=== PATIENT | female | born 1945 | race Caucasian/White ===

== ENCOUNTER 2019-10-24 10:00 | Outpatient (RCR) | payer OTHER, SELFPAY | END 2019-10-31 23:59 | disposition home or self-care (01) | LOC: BHCOACUTE 10:00 | PROVIDERS: Family Provider Nurse Practitioner Family; PCP Family Medicine; Visit Provider Nurse Practitioner Psychiatric/Mental Health | DX: Z76.89 Persons encountering health services in other specified circumstances (principal) | CPT/HCPCS: T1013 ==

== ENCOUNTER 2019-10-30 13:33 | Outpatient (CLI) | payer MEDICARE, MEDICAID, SELFPAY ==
--- NOTE | 2019-10-30 13:42 | MM_ITS ---
WS: [id number] RIGHT DIGITAL MAMMOGRAPHY WITH CAD CLINICAL INFORMATION: HX BREAST CA - LT MAST. COMPARISON: March 07, 2017 TECHNIQUE: 3 views of the right breast were obtained. FINDINGS: The right breast is composed of heterogeneous fibroglandular density tissue, which can limit the dete ction of small underlying mass lesions. Vascular calcification. Stable lucent centered and dystrophic calcific medications. MM/[place] [id number] IMPRESSION: BI-RADS: 2-Benign FOLLOW UP: 1 Year Follow-up Recommend return to annual diagnostic mammography.
== END 2019-10-30 13:34 | disposition home or self-care (01) ==
PROVIDERS: Family Provider Nurse Practitioner Family; PCP Family Medicine; Visit Provider Family Medicine
DX: Z85.3 Personal history of malignant neoplasm of breast (principal)
CPT/HCPCS: 77065

== ENCOUNTER → 2020-01-23 08:13 | Outpatient (BNVA) | payer MEDICARE, MEDICAID, SELFPAY | PROVIDERS: Family Provider Nurse Practitioner Family; PCP Family Medicine; Visit Provider Nurse Practitioner Psychiatric/Mental Health | DX: F20.0 Paranoid schizophrenia (principal) | CPT/HCPCS: 99214 ==

== ENCOUNTER → 2020-02-17 07:42 | Outpatient (BNVA) | payer MEDICARE, MEDICAID, SELFPAY | PROVIDERS: Family Provider Nurse Practitioner Family; PCP Family Medicine; Visit Provider Nurse Practitioner Psychiatric/Mental Health | DX: F20.0 Paranoid schizophrenia (principal) | CPT/HCPCS: 99214 ==

== ENCOUNTER 2020-03-20 16:43 | Emergency (ER) | payer MEDICARE, MEDICAID, SELFPAY ==
[2020-03-20 16:45] VITALS: BP 173/61; PULSE 48; RESP 17; TEMP 36.4; O2SAT 92; BMI 20.3
--- NOTE | 2020-03-20 17:02 | CTR_ITS ---
PROCEDURE INFORMATION: Exam: CT Chest Without Contrast Exam date and time: 03/20/2020 5:27 PM Age: 74 years old Clinical indication: Injury or trauma; Fall; Initial encounter; Generalized; Blunt trauma (contusions or hematomas); Additional info: Fall, altered mental status TECHNIQUE: Imaging protocol: Computed tomography of the chest without contrast. Radiation optimization: All CT scans at this facility use at least one of these dose optimization techniques: automated exposure control; mA and/or kV adjustment per patient size (includes targeted exams where dose is matched to clinical indication); or iterative reconstruction. COMPARISON: No relevant prior studies available. RADIATION DOSE METRICS: Total DLP (mGy-cm): 1280.03 enlargement of the central pulmonary arteries. FINDINGS: Lungs: Centrilobular emphysema and scattered interstitial scarring. 3 mm nodule in the anterior right upper lobe, image 28. Mild dependent atelectasis. Pleural space: Unremarkable. No pneumothorax. No pleural effusion. Heart: Coronary artery calcifications. Mild cardiomegaly. Aorta: Unremarkable. No aortic aneurysm. Lymph nodes: Unremarkable. No enlarged lymph nodes. Bones/joints: Minimally displaced anterior right 3rd through 6th rib fractures. Soft tissues: Left mastectomy changes. IMPRESSION: 1. Minimally displaced acute appearing right 3rd through 6th rib fractures. 2. 3 mm right lung nodule. For patients at low risk (minimal or absent history of smoking and of other known risk factors), no routine follow-up is indicated. For patients at high risk (history of smoking or of other known risk factors), consider optional CT at 12 months. (Paul et al., Fleischner Society, 2017) PROCEDURE INFORMATION: Exam: CT Abdomen And Pelvis Without Contrast Exam date and time: 03/20/2020 5:27 PM Age: 74 years old Clinical indication: Injury or trauma; Fall; Initial encounter; Generalized; Blunt trauma (contusions or hematomas); Additional info: Fall, altered mental status TECHNIQUE: Imaging protocol: Computed tomography of the abdomen and pelvis without contrast. Radiation optimization: All CT scans at this facility use at least one of these dose optimization techniques: automated exposure control; mA and/or kV adjustment per patient size (includes targeted exams where dose is matched to clinical indication); or iterative reconstruction. COMPARISON: No relevant prior studies available. RADIATION DOSE METRICS: Total DLP (mGy-cm): 1280.03 FINDINGS: Liver: Normal. No mass. Gallbladder and bile ducts: Normal. No calcified stones. No ductal dilation. Pancreas: Normal. No ductal dilation. Spleen: Normal. No splenomegaly. Adrenals: Normal. No mass. Kidneys and ureters: Mild perinephric stranding is most likely chronic and physiologic. The kidneys are otherwise unremarkable. Stomach and bowel: Unremarkable. No obstruction. No mucosal thickening. Appendix: No evidence of appendicitis. Intraperitoneal space: Unremarkable. No free air. No significant fluid collection. Vasculature: Unremarkable. No abdominal aortic aneurysm. Lymph nodes: Unremarkable. No enlarged lymph nodes. Bladder: Unremarkable as visualized. Reproductive: Unremarkable as visualized. 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 Old nonunited fracture through the right pubic symphysis and inferior ramus. No acute fracture identified. Soft tissues: Mild diffuse body wall edema. Old anterior laparotomy incision. CT/CT chest abd pel wo con IMPRESSION: 1. No acute abnormality identified in the abdomen or pelvis. 2. 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 Radiation Dose CTDIVOL = (mGy): DLP = 1280.03~1280.03 (mGy-cm)
--- NOTE | 2020-03-20 17:02 | CTR_ITS ---
PROCEDURE INFORMATION: Exam: CT Head Without Contrast Exam date and time: 03/20/2020 5:27 PM Age: 74 years old Clinical indication: Injury or trauma; Fall; Initial encounter; Blunt trauma (contusions or hematomas); Consciousness not specified; Additional info: Fall, altered mental status TECHNIQUE: Imaging protocol: Computed tomography of the head without contrast. Radiation optimization: All CT scans at this facility use at least one of these dose optimization techniques: automated exposure control; mA and/or kV adjustment per patient size (includes targeted exams where dose is matched to clinical indication); or iterative reconstruction. COMPARISON: No relevant prior studies available. RADIATION DOSE METRICS: Total DLP (mGy-cm): 1802.88 FINDINGS: Brain: Mild diffuse cortical volume loss. Mild scattered hypodensities in supratentorial periventricular and subcortical white matter. No intracranial hemorrhage. Ventricles: Normal. No ventriculomegaly. Bones/joints: The calvarium is intact with hyperostosis frontalis. Sinuses: Visualized sinuses are unremarkable. No fluid levels. Mastoid air cells: Visualized mastoid air cells are well aerated. Vasculature: No hyperdense artery. Soft tissues: Unremarkable. CT/CT head wo con* [id number] IMPRESSION: 1. No acute intracranial abnormality. 2. Mild microangiopathy. Radiation Dose CTDIVOL = (mGy): DLP = 1802.88 (mGy-cm)
--- NOTE | 2020-03-20 17:02 | CTR_ITS ---
PROCEDURE INFORMATION: Exam: CT Cervical Spine Without Contrast Exam date and time: 03/20/2020 5:27 PM Age: 74 years old Clinical indication: Injury or trauma; Fall; Initial encounter; Blunt trauma TECHNIQUE: Imaging protocol: Computed tomography images of the cervical spine without contrast. Radiation optimization: All CT scans at this facility use at least one of these dose optimization techniques: automated exposure control; mA and/or kV adjustment per patient size (includes targeted exams where dose is matched to clinical indication); or iterative reconstruction. COMPARISON: No relevant prior studies available. RADIATION DOSE METRICS: Total DLP (mGy-cm): 431.27 FINDINGS: Vertebrae: Leftward cervical curvature. Vertebral body stature is maintained. Mild anterior degenerative subluxation of C3 on C4. The facets are intact with hypertrophic degenerative changes, asymmetrically prominent on the right side. C2-C3: Moderate left bony foraminal stenosis at C2-C3. No central canal stenosis. C3-C4: Moderate left and severe right bony foraminal stenosis at C3-C4. Mild disc bulge. No central canal stenosis. C4-C5: Moderate right bony foraminal stenosis at C4-C5. No central canal stenosis. C5-C6: No significant disc protrusion. No severe spinal canal stenosis. No significant neural foraminal narrowing. C6-C7: Severe right bony foraminal stenosis at C6-C7. Mild disc bulge. Mild central canal stenosis. C7-T1: No significant disc protrusion. No severe spinal canal stenosis. No significant neural foraminal narrowing. Soft tissues: Unremarkable. Lungs: Emphysema. Other findings: Severe right bony foraminal stenosis at C5-C6. Disc bulge with mild central canal stenosis. CT/CT cervical spin wo con* [id number] IMPRESSION: 1. No fracture or acute finding. 2. Multilevel degenerative changes. Radiation Dose CTDIVOL = (mGy): DLP = 431.27 (mGy-cm)
--- NOTE | 2020-03-20 17:05 | ECG_ITS ---
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 Measurements Intervals [place] Rate: 47 P: 53 NM: 193 QRS: -14 QRSD: 93 T: 57 QT: 517 QTc: 459 Interpretive Statements SINUS BRADYCARDIA LEFT VENTRICULAR HYPERTROPHY AND ST-T CHANGE [VOLTAGE CRITERIA PLUS ST/T ABNORMALITY] WARNING: DATA QUALITY MAY AFFECT INTERPRETATION Compared to ECG 06/22/2018 01:10:41 Sinus rhythm no longer present ST (T wave) deviation still present Electronically Signed On 03-20-2020 22:44:27 CDT by Sherrill Delgadillo M.D. [id number]
[2020-03-20 18:14] LABS: Basophils # 0.1 10^3/uL (0.0-0.1); Basophils % 0.7 %; Eosinophils # 0.1 10^3/uL (0.0-0.8); Eosinophils % 1.1 %; Hematocrit 42.6 % (37.0-47.0); Hemoglobin 13.7 g/dL (11.5-15.3); Lymphocytes # 2.5 10^3/uL (0.8-4.8); Lymphocytes % 33.7 %; Mean Corpuscular HGB Conc 32.2 g/dL (30.0-36.0); Mean Corpuscular Hemoglobin 31.1 pg (28.0-34.0); Mean Corpuscular Volume 96.6 fL (81-99); Mean Platelet Volume 11.8 fL (7.4-10.4); Monocytes # 0.7 10^3/uL (0.2-0.9); Monocytes % 8.9 %; Neutrophils % 55.3 %; Nucleated Red Blood Cells % 0 %; Platelet Count 197 10^3/cmm (130-400); Red Blood Count 4.41 10^6/uL (4.1-5.3); Red Cell Distribution Width 14.2 % (12.1-15.1); White Blood Count 7.3 10^3/uL (4.0-10.0)
[2020-03-20 18:21] LABS: Alanine Aminotransferase 20 U/L (0-33); Albumin Level 3.6 g/dL (3.5-5.2); Alkaline Phosphatase 59 IU/L (35-105); Anion Gap 14.3 (5-19); Aspartate Amino Transferase 24 U/L (0-32); Blood Urea Nitrogen 14 mg/dL (8-23); Calcium 8.8 mg/dL (8.5-10.5); Carbon Dioxide 27 mmol/L (22-29); Chloride 94 mmol/L (98-107); Globulin 2.2 g/dL (1.3-4.6); Glucose 93 mg/dL (65-115); Osmolality Calculated 268 mOsm/kg (285-295); Potassium 4.3 mmol/L (3.5-5.1); Sodium 131 mmol/L (136-145); Total Bilirubin 0.3 mg/dL (0.15-1.2); Total Protein 5.8 g/dL (6.6-8.7); Troponin(5th) Baseline 16 ng/L (0-10)
[2020-03-20 18:52] LABS: Urine Color Yellow (Yellow); pH Urine 8 (5-7)
[2020-03-20 18:53] LABS: Add Urine Microscopic? YES; Bilirubin Urine Neg (NEGATIVE); Blood Urine Neg (Negative); Glucose Urine UA Norm (Normal); Ketones Urine Negative (Negative); Leukocyte Esterase Urine Negative (Negative); Nitrate Urine Negative (Negative); Protein Urine Neg (Negative); Sulfosalicylic Acid Urine Negative (Negative); Urine Appearance SL Hazy (CLEAR); Urobilinogen Urine Norm (Negative)
[2020-03-20 18:54] LABS: Bacteria Urine 1+; Squamous Epithelial Cell Urine 0-4 (0-5)
[2020-03-20 18:55] LABS: Add Urine Culture? No
[2020-03-20 18:58] LABS: Amphetamines Screen Urine Negative (Negative); Barbiturates Screen Urine Negative (Negative); Benzodiazepines Screen Urine Positive (Negative); Cocaine Screen Urine Negative (Negative); Opiate Screen Urine Negative (Negative); PCP Screen Urine Negative (Negative); THC Screen Urine Negative (Negative)
--- NOTE | 2020-03-20 19:05 | ECG_ITS ---
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 Measurements Intervals [place] Rate: 46 P: 58 [place]: 164 QRS: 19 QRSD: 93 T: 71 QT: 509 QTc: 446 Interpretive Statements SINUS BRADYCARDIA LEFT VENTRICULAR HYPERTROPHY AND ST-T CHANGE Compared to ECG 03/20/2020 17:18:47 No significant changes Electronically Signed On 03-20-2020 22:56:36 CDT by Sherrill Delgadillo M.D. [id number]
[2020-03-20 20:01] LABS: Troponin 5 2HR 15.44 ng/L (0-10)
[2020-03-20 20:14] LABS: Troponin 5 2HR Delta -0.56 ABS# (0-10)
[2020-03-20 21:07] VITALS: BP 169/59; PULSE 43; RESP 22; O2SAT 97
[2020-03-20 22:15] VITALS: BP 121/46; PULSE 37; RESP 15; O2SAT 94
--- NOTE | 2020-03-20 22:46 | ED_ITS ---
HPI - Fall General: Chief Complaint: Fall Stated Complaint: MULT FALLS; HEAD PAIN Time Seen by Provider: 03/20/20 16:52 Source: family and EMS Mode of arrival: EMS Limitations: no limitations History of Present Illness: HPI Narrative: The patient is a 74-year-old female resident of a local [facility]. She was brought in via EMS following repeated falls and lethargy. Her daughter says that the patient fell yesterday, fall was witnessed and there was no change in her baseline level of function. Today she fell outside which was unwitnessed and they were not sure if there was any episode of loss of consciousness. The patient was however quite lethargic after and so was sent here to be evaluated. The patient is not on anticoagulation. According to her daughter and EMS the patient was bradycardic when they arrived, with heart rate of about 40. The daughter says that the patient's heart rate is usually not that low and it usually runs about 60 or 70. The patient is on amiodarone and metoprolol but has been on these medications long-term. No change in the dosing of her meds. Review of Systems General: Reports: ROS unobtainable due to mental status PFSH ED PFSH: Medical History Paranoid schizophrenia Social History Smoking and tobacco status: current every day smoker Physical Exam Const: COMMON NORMALS: no acute distress, average body habitus, no limitations, healthy appearing, alert and well nourished HENMT: COMMON NORMALS: normocephalic, atraumatic and moist oral mucous membranes HEAD & SCALP: normocephalic and atraumatic Eye: COMMON NORMALS: Equal, round and reactive pupils present, EOMs intact bilaterally, conjunctivae normal and no scleral icterus CONJUNCTIVA: Yes conjunctivae normal PUPIL: Yes Equal, round and reactive pupils present Neck/C-Spine: COMMON NORMALS: full ROM, supple, no JVD and No carotid bruits Chest: COMMONS NORMALS: normal inspection of the chest CHEST: Yes localized rib tenderness with anteroposterior compression Resp: COMMON NORMALS: normal respiratory effort, No retractions, No use of accessory muscles, clear to auscultation bilaterally and percussion normal AUSCULTATION: clear to auscultation bilaterally PERCUSSION: percussion normal Cardio: COMMON NORMALS: no JVD, regular rate, regular rhythm, S1 normal heart sound present, S2 normal heart sound present, No gallops present (Cardio), No clicks present (Cardio), No murmurs present (Cardio), No rub (Cardio) and Peripheral pulses 2+ throughout RATE: regular rate RHYTHM: regular rhythm HEART SOUNDS: S1 normal heart sound present and S2 normal heart sound present PERIPHERAL PULSES: Peripheral pulses 2+ throughout GI: COMMON NORMALS: Normal to inspection, nondistended, normoactive bowel sounds present, Soft to palpation, non-tender, No hepatosplenomegaly present, no masses and no bruits PALPATION: Yes Soft to palpation and Yes No hepatosplenomegaly present : COMMON NORMALS: Yes no CVA tenderness BLADDER/KIDNEY EXAM: Yes no CVA tenderness Back/Pelvis: COMMON NORMALS: no CVA tenderness Extremity: COMMON NORMALS: normal to inspection, full ROM, capillary refill normal, no calf tenderness and no pedal edema Neuro: SENSORIUM/ORIENTATION: Yes alert and Yes Orientation impaired Skin: COMMON NORMALS: no rashes or lesions noted, no wounds, turgor normal, no jaundice, no petechiae and no mottling GENERAL SKIN EXAM: no rashes or lesions noted and turgor normal Course Reevaluation(s): Reevaluation #1: Discussed her lab and imaging findings with the patient's daughter. Explained that she has multiple rib fractures on the right. Also explained that because she is bradycardic I would like evaluated in the trauma center. I do not voiced understanding and is in agreement with the plan. Abductor does not have any preference for hospitalist. Time: 20:00 Consultations: Consultation #1: Dr. Angela, hospitalist at [facility] in [place]. He kindly accepted the patient to his service. Time: 20:20 Vital Signs: Vital signs: Vital Signs Temperature 97.5 F L 03/20/20 16:45 Pulse Rate 43 L 03/20/20 21:07 Respiratory Rate 22 H 03/20/20 21:07 Blood Pressure 169/59 03/20/20 21:07 Pulse Oximetry 97 03/20/20 21:07 MDM - Fall MDM Narrative: Medical decision making narrative: 74-year-old female patient presents falls in the last 2 days. She is noted to be bradycardic although she is on amiodarone and metoprolol. She sustained multiple rib fractures, third through sixth ribs on the right. No pneumo or hemothorax. Because of the rib fractures as well as a bradycardia the patient is transferred to a trauma center for further evaluation and management. She has a flat 2-hour delta on her high-sensitivity troponin. Medical Records: Attestation: I reviewed the patient's medical records. Lab Data: Attestation: I reviewed the patient's lab results. Labs: Lab Results 03/20/20 03/20/20 03/20/20 Range/Units 17:35 17:35 17:35 WBC 7.3 (4.0-10.0) 10^3/ uL RBC 4.41 (4.1-5.3) 10^6/u L Hgb 13.7 (11.5-15.3) g/dL Hct 42.6 (37.0-47.0) % MCV 96.6 (81-99) fL MCH 31.1 (28.0-34.0) pg MCHC 32.2 (30.0-36.0) g/dL RDW 14.2 (12.1-15.1) % Plt Count 197 (130-400) 10^3/c mm MPV 11.8 H (7.4-10.4) fL Neut % (Auto) 55.3 % Lymph % (Auto) 33.7 % [place] % (Auto) 8.9 % Eos % (Auto) 1.1 % Baso % (Auto) 0.7 % Neut # (Auto) 4.0 (1.8-7.7) 10^3/u L Lymph # (Auto) 2.5 (0.8-4.8) 10^3/u L [place] # (Auto) 0.7 (0.2-0.9) 10^3/u L Eos # (Auto) 0.1 (0.0-0.8) 10^3/u L Baso # (Auto) 0.1 (0.0-0.1) 10^3/u L Nucleated RBC % (a uto) 0 % Nucleated RBCs # 0.0 /100WBC Sodium 131 L (136-145) mmol/L Potassium 4.3 (3.5-5.1) mmol/L Chloride 94 L (98-107) mmol/L Carbon Dioxide 27 (22-29) mmol/L Anion Gap 14.3 (5-19) BUN 14 (8-23) mg/dL Creatinine 0.6 (0.5-0.9) mg/dL Glucose 93 (65-115) mg/dL Calculated Osmolal ity 268 L (285-295) mOsm/k g Calcium 8.8 (8.5-10.5) mg/dL Total Bilirubin 0.3 (0.15-1.2) mg/dL AST 24 (0-32) U/L ALT 20 (0-33) U/L Alkaline Phosphata se 59 (35-105) IU/L Troponin T Baselin e 16 H (0-10) ng/L Troponin T 120 Min ewiiaapaayp (0-10) ng/L Delta Troponin T (0-10) ABS# Total Protein 5.8 L (6.6-8.7) g/dL Albumin 3.6 (3.5-5.2) g/dL Globulin 2.2 (1.3-4.6) g/dL Urine Color (Yellow) Urine Appearance (CLEAR) Urine pH (5-7) Ur Specific Gravit y (1.005-1.030) Urine Protein (Negative) Urine Glucose (UA) (Normal) Urine Ketones (Negative) Urine Blood (Negative) Urine Nitrate (Negative) Urine Bilirubin (NEGATIVE) Prot Sulfosalicyli c Acd (Negative) Urine Urobilinogen (Negative) mg/dL Ur Leukocyte Olinda ase (Negative) Urine RBC (0-2) /hpf Urine WBC (0-5) /hpf Ur Squamous Epith Cells (0-5) Urine Bacteria (NONE) Urine Opiates Scre en (Negative) ng/mL Ur Barbiturates Sc reen (Negative) ng/mL Ur Phencyclidine S crn (Negative) ng/mL Ur Amphetamines Sc reen (Negative) ng/mL U Benzodiazepines Scrn (Negative) ng/mL Urine Cocaine Scre en (Negative) ng/mL U Marijuana (THC) Screen (Negative) ng/mL 03/20/20 03/20/20 03/20/20 Range/Units 18:35 18:35 19:31 WBC (4.0-10.0) 10^3/ uL RBC (4.1-5.3) 10^6/u L Hgb (11.5-15.3) g/dL Hct (37.0-47.0) % MCV (81-99) fL MCH (28.0-34.0) pg MCHC (30.0-36.0) g/dL RDW (12.1-15.1) % Plt Count (130-400) 10^3/c mm MPV (7.4-10.4) fL Neut % (Auto) % Lymph % (Auto) % [place] % (Auto) % Eos % (Auto) % Baso % (Auto) % Neut # (Auto) (1.8-7.7) 10^3/u L Lymph # (Auto) (0.8-4.8) 10^3/u L [place] # (Auto) (0.2-0.9) 10^3/u L Eos # (Auto) (0.0-0.8) 10^3/u L Baso # (Auto) (0.0-0.1) 10^3/u L Nucleated RBC % (a uto) % Nucleated RBCs # /100WBC Sodium (136-145) mmol/L Potassium (3.5-5.1) mmol/L Chloride (98-107) mmol/L Carbon Dioxide (22-29) mmol/L Anion Gap (5-19) BUN (8-23) mg/dL Creatinine (0.5-0.9) mg/dL Glucose (65-115) mg/dL Calculated Osmolal ity (285-295) mOsm/k g Calcium (8.5-10.5) mg/dL Total Bilirubin (0.15-1.2) mg/dL AST (0-32) U/L ALT (0-33) U/L Alkaline Phosphata se (35-105) IU/L Troponin T Baselin e (0-10) ng/L Troponin T 120 Min ewiiaapaayp 15.44 H (0-10) ng/L Delta Troponin T -0.56 L (0-10) ABS# Total Protein (6.6-8.7) g/dL Albumin (3.5-5.2) g/dL Globulin (1.3-4.6) g/dL Urine Color Yellow (Yellow) Urine Appearance Sl hazy (CLEAR) Urine pH 8 H (5-7) Ur Specific Gravit y 1.010 (1.005-1.030) Urine Protein Neg (Negative) Urine Glucose (UA) Norm (Normal) Urine Ketones Negative (Negative) Urine Blood Neg (Negative) Urine Nitrate Negative (Negative) Urine Bilirubin Neg (NEGATIVE) Prot Sulfosalicyli c Acd Negative (Negative) Urine Urobilinogen Norm (Negative) mg/dL Ur Leukocyte Olinda ase Negative (Negative) Urine RBC None (0-2) /hpf Urine WBC None (0-5) /hpf Ur Squamous Epith Cells 0-4 H (0-5) Urine Bacteria 1+ H (NONE) Urine Opiates Scre en Negative (Negative) ng/mL Ur Barbiturates Sc reen Negative (Negative) ng/mL Ur Phencyclidine S crn Negative (Negative) ng/mL Ur Amphetamines Sc reen Negative (Negative) ng/mL U Benzodiazepines Scrn Positive H (Negative) ng/mL Urine Cocaine Scre en Negative (Negative) ng/mL U Marijuana (THC) Screen Negative (Negative) ng/mL Imaging Data^: Other CT: Radiologist's impression: [place] [address] CT Scan Report Signed Patient: Luna Vu #: [id number] : 5Acct#:[id number] Age/Sex: 74 / FADM Date: 03/20/20 Loc: ERRoom/Bed: Attending Dr: Ordering Provider/Ordering MD: Catia Magallon MD, [facility] Date of Service: 03/20/20 Procedure(s): CT cervical spin wo con* [id number] Accession Number(s): [id number] Report Number: [id number] PROCEDURE INFORMATION: Exam: CT Cervical Spine Without Contrast Exam date and time: 03/20/2020 5:27 PM Age: 74 years old Clinical indication: Injury or trauma; Fall; Initial encounter; Blunt trauma TECHNIQUE: Imaging protocol: Computed tomography images of the cervical spine without contrast. Radiation optimization: All CT scans at this facility use at least one of these dose optimization techniques: automated exposure control; mA and/or kV adjustment per patient size (includes targeted exams where dose is matched to clinical indication); or iterative reconstruction. COMPARISON: No relevant prior studies available. RADIATION DOSE METRICS: Total DLP (mGy-cm): 431.27 FINDINGS: Vertebrae: Leftward cervical curvature. Vertebral body stature is maintained. Mild anterior degenerative subluxation of C3 on C4. The facets are intact with hypertrophic degenerative changes, asymmetrically prominent on the right side. C2-C3: Moderate left bony foraminal stenosis at C2-C3. No central canal stenosis. C3-C4: Moderate left and severe right bony foraminal stenosis at C3-C4. Mild disc bulge. No central canal stenosis. C4-C5: Moderate right bony foraminal stenosis at C4-C5. No central canal stenosis. C5-C6: No significant disc protrusion. No severe spinal canal stenosis. No significant neural foraminal narrowing. C6-C7: Severe right bony foraminal stenosis at C6-C7. Mild disc bulge. Mild central canal stenosis. C7-T1: No significant disc protrusion. No severe spinal canal stenosis. No significant neural foraminal narrowing. Soft tissues: Unremarkable. Lungs: Emphysema. Other findings: Severe right bony foraminal stenosis at C5-C6. Disc bulge with mild central canal stenosis. CT/CT cervical spin wo con* [id number] IMPRESSION: 1. No fracture or acute finding. 2. Multilevel degenerative changes. Radiation Dose CTDIVOL = (mGy): DLP = 431.27 (mGy-cm) Dictated By:Americo Barbosa Signed By:Heavenly Barbosa Date/Time:03/20/201801 DD/ 00 CT Chest: Radiologist's impression: [address] [address] [address] Scan Report Signed Patient: Luna Vu #: [id number] : 5Acct#:[id number] Age/Sex: 74 / FADM Date: 03/20/20 Loc: ERRoom/Bed: Attending Dr: Ordering Provider/Ordering MD: Catia Magallon MD, [facility] Date of Service: 03/20/20 Procedure(s): CT chest abd pel wo con Accession Number(s): [id number] Report Number: [id number] PROCEDURE INFORMATION: Exam: CT Chest Without Contrast Exam date and time: 03/20/2020 5:27 PM Age: 74 years old Clinical indication: Injury or trauma; Fall; Initial encounter; Generalized; Blunt trauma (contusions or hematomas); Additional info: Fall, altered mental status TECHNIQUE: Imaging protocol: Computed tomography of the chest without contrast. Radiation optimization: All CT scans at this facility use at least one of these dose optimization techniques: automated exposure control; mA and/or kV adjustment per patient size (includes targeted exams where dose is matched to clinical indication); or iterative reconstruction. COMPARISON: No relevant prior studies available. RADIATION DOSE METRICS: Total DLP (mGy-cm): 1280.03 enlargement of the central pulmonary arteries. FINDINGS: Lungs: Centrilobular emphysema and scattered interstitial scarring. 3 mm nodule in the anterior right upper lobe, image 28. Mild dependent atelectasis. Pleural space: Unremarkable. No pneumothorax. No pleural effusion. Heart: Coronary artery calcifications. Mild cardiomegaly. Aorta: Unremarkable. No aortic aneurysm. Lymph nodes: Unremarkable. No enlarged lymph nodes. Bones/joints: Minimally displaced anterior right 3rd through 6th rib fractures. Soft tissues: Left mastectomy changes. IMPRESSION: 1. Minimally displaced acute appearing right 3rd through 6th rib fractures. 2. 3 mm right lung nodule. For patients at low risk (minimal or absent history of smoking and of other known risk factors), no routine follow-up is indicated. For patients at high risk (history of smoking or of other known risk factors), consider optional CT at 12 months. (Paul et al., Fleischner Society, 2017) PROCEDURE INFORMATION: Exam: CT Abdomen And Pelvis Without Contrast Exam date and time: 03/20/2020 5:27 PM Age: 74 years old Clinical indication: Injury or trauma; Fall; Initial encounter; Generalized; Blunt trauma (contusions or hematomas); Additional info: Fall, altered mental status TECHNIQUE: Imaging protocol: Computed tomography of the abdomen and pelvis without contrast. Radiation optimization: All CT scans at this facility use at least one of these dose optimization techniques: automated exposure control; mA and/or kV adjustment per patient size (includes targeted exams where dose is matched to clinical indication); or iterative reconstruction. COMPARISON: No relevant prior studies available. RADIATION DOSE METRICS: Total DLP (mGy-cm): 1280.03 FINDINGS: Liver: Normal. No mass. Gallbladder and bile ducts: Normal. No calcified stones. No ductal dilation. Pancreas: Normal. No ductal dilation. Spleen: Normal. No splenomegaly. Adrenals: Normal. No mass. Kidneys and ureters: Mild perinephric stranding is most likely chronic and physiologic. The kidneys are otherwise unremarkable. Stomach and bowel: Unremarkable. No obstruction. No mucosal thickening. Appendix: No evidence of appendicitis. Intraperitoneal space: Unremarkable. No free air. No significant fluid collection. Vasculature: Unremarkable. No abdominal aortic aneurysm. Lymph nodes: Unremarkable. No enlarged lymph nodes. Bladder: Unremarkable as visualized. Reproductive: Unremarkable as visualized. 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 Old nonunited fracture through the right pubic symphysis and inferior ramus. No acute fracture identified. Soft tissues: Mild diffuse body wall edema. Old anterior laparotomy incision. CT/CT chest abd pel wo con IMPRESSION: 1. No acute abnormality identified in the abdomen or pelvis. 2. 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 Radiation Dose CTDIVOL = (mGy): DLP = 1280.03~1280.03 (mGy-cm) Dictated By:Americo Barbosa Signed By:Heavenly Barbosa Date/Time:03/20/201819 DD/ 18 CT Head: Radiologist's impression: [place] [address] CT Scan Report Signed Patient: Luna Vu #: [id number] : 5Acct#:[id number] Age/Sex: 74 / FADM Date: 03/20/20 Loc: ERRoom/Bed: Attending Dr: Ordering Provider/Ordering MD: Catia Magallon MD, [facility] Date of Service: 03/20/20 Procedure(s): CT head wo con* [id number] Accession Number(s): [id number] Report Number: [id number] PROCEDURE INFORMATION: Exam: CT Head Without Contrast Exam date and time: 03/20/2020 5:27 PM Age: 74 years old Clinical indication: Injury or trauma; Fall; Initial encounter; Blunt trauma (contusions or hematomas); Consciousness not specified; Additional info: Fall, altered mental status TECHNIQUE: Imaging protocol: Computed tomography of the head without contrast. Radiation optimization: All CT scans at this facility use at least one of these dose optimization techniques: automated exposure control; mA and/or kV adjustment per patient size (includes targeted exams where dose is matched to clinical indication); or iterative reconstruction. COMPARISON: No relevant prior studies available. RADIATION DOSE METRICS: Total DLP (mGy-cm): 1802.88 FINDINGS: Brain: Mild diffuse cortical volume loss. Mild scattered hypodensities in supratentorial periventricular and subcortical white matter. No intracranial hemorrhage. Ventricles: Normal. No ventriculomegaly. Bones/joints: The calvarium is intact with hyperostosis frontalis. Sinuses: Visualized sinuses are unremarkable. No fluid levels. Mastoid air cells: Visualized mastoid air cells are well aerated. Vasculature: No hyperdense artery. Soft tissues: Unremarkable. CT/CT head wo con* [id number] IMPRESSION: 1. No acute intracranial abnormality. 2. Mild microangiopathy. Radiation Dose CTDIVOL = (mGy): DLP = 1802.88 (mGy-cm) Dictated By:Americo Barbosa Signed By:Americo BarbosaSienrique Date/Time:03/20/201803 DD/ 02 EKG Data^: EKG 1: Attestation: I personally reviewed and interpreted this EKG as follows: EKG interpretation date: 03/20/20 EKG interpretation time: 17:05 Prior EKG tracings: not available for review Interpretation: Sinus bradycardia. Heart rate 47 bpm. LVH. EKG 2: Attestation: I personally reviewed and interpreted this EKG as follows: EKG interpretation date: 03/20/20 EKG interpretation time: 19:05 Prior EKG tracings: available for review Interpretation: Sinus bradycardia Heart rate 46 bpm. LVH. Unchanged from earlier today. Discharge Plan Discharge Patient Disposition: Xfer Short-Term Hosp Clinical Impression: Bradycardia, Multiple fractures of rib involving four or more ribs, Acute alteration in mental status, Repeated falls Condition: Stable Prescriptions: No Action amiodarone 200 mg tablet 200 mg PO QDAY RF: 0 aspirin [Adult Low Dose Aspirin] 81 mg tablet,delayed release (DR/EC) 81 mg PO QDAY RF: 0 ferrous sulfate 325 mg (65 mg iron) tablet 325 mg PO QDAY RF: 0 furosemide [Lasix] 40 mg tablet 40 mg PO QAM PRN (Reason: Edema) RF: 0 ibuprofen 600 mg tablet 600 mg PO TID PRN (Reason: Pain) RF: 0 levothyroxine 50 mcg capsule 50 mcg PO QDAY RF: 0 metoprolol tartrate 25 mg tablet 12.5 mg PO BID RF: 0 montelukast 10 mg tablet 10 mg PO .QHS RF: 0 multivitamin Tablet 1 tab PO QAM RF: 0 pantoprazole 40 mg tablet,delayed release (DR/EC) 40 mg PO QDAY RF: 0 docusate sodium [Colace] 100 mg capsule 100 mg PO QDAY RF: 0 nitroglycerin 0.4 mg tablet, sublingual 0.4 mg SUBLINGUAL Q5M PRN (Reason: Chest Pain) RF: 0 divalproex [Depakote ER] 250 mg tablet extended release 24 hr 250 mg PO BID Qty: 60 RF: 4 fluoxetine [Prozac] 20 mg capsule 20 mg PO QAM Qty: 30 RF: 4 haloperidol 2 mg tablet 2 mg PO BID PRN (Reason: agitation) Qty: 60 RF: 3 lorazepam [Ativan] 1 mg tablet 1 mg PO BID PRN (Reason: anxiety) Qty: 60 RF: 3 ziprasidone HCl [Geodon] 60 mg capsule 60 mg PO .am and 6 pm Qty: 60 RF: 3 perphenazine 8 mg tablet 8 mg PO QAM Qty: 30 RF: 4 tolterodine 4 mg Capsule,Extended Release 24hr 4 mg PO DAILY RF: 0 simvastatin 20 mg tablet 20 mg PO DAILY RF: 0 Oyster Shell + D3 250-125 mg-unit Tablet 1 tab PO BID RF: 0 Breo Ellipta 200-25 mcg/dose Blister With Device 1 inh INHALATION DAILY RF: 0 Discharge Orders: Transfer Out of Facility (Order); Ordered 03/20/20 Ordered By: Catia Magallon Coding Level of Care Code ED Population Geneticist for Basilio Toth
[2020-03-20 23:05] VITALS: BP 123/45; PULSE 36; RESP 15; O2SAT 94
[2020-03-20 23:21] VITALS: BP 123/45; PULSE 37; RESP 18; O2SAT 95
== END 2020-03-21 00:15 | disposition short-term general hospital (02) ==
PROVIDERS: Emergency Provider Family Medicine
DX: R00.1 Bradycardia, unspecified (principal); S22.41XA Multiple fractures of ribs, right side, initial encounter for closed fracture; R41.82 Altered mental status, unspecified; R29.6 Repeated falls; F17.210 Nicotine dependence, cigarettes, uncomplicated; W19.XXXA Unspecified fall, initial encounter; Y92.129 Unspecified place in nursing home as the place of occurrence of the external cause
CPT/HCPCS: 12345; 70450; 71250; 72125; 74176; 80053; 80306; 81001; 84484; 85025; 93005; 99283; 99285

== ENCOUNTER → 2020-05-11 08:04 | Outpatient (BNVA) | payer MEDICARE, MEDICAID, SELFPAY | PROVIDERS: Visit Provider Nurse Practitioner Psychiatric/Mental Health | DX: F20.0 Paranoid schizophrenia (principal) | CPT/HCPCS: 99213 ==

== ENCOUNTER → 2020-07-23 10:58 | Outpatient (BNVA) | payer MEDICARE, MEDICAID, SELFPAY | PROVIDERS: Visit Provider Nurse Practitioner Psychiatric/Mental Health | DX: F20.0 Paranoid schizophrenia (principal) | CPT/HCPCS: 99213 ==

== ENCOUNTER → 2020-10-22 10:29 | Outpatient (BNVA) | payer MEDICARE, MEDICAID, SELFPAY | PROVIDERS: PCP Nurse Practitioner Family; Visit Provider Nurse Practitioner Psychiatric/Mental Health | DX: F20.0 Paranoid schizophrenia (principal) | CPT/HCPCS: 99214 ==

== ENCOUNTER 2020-11-04 11:20 | Outpatient (CLI) | payer MEDICARE, MEDICAID, SELFPAY ==
--- NOTE | 2020-11-04 11:30 | MM_ITS ---
WS: [id number] DIAGNOSTIC RIGHT DIGITAL MAMMOGRAM WITH CAD HISTORY: Z85.3 - Personal history of malignant neoplasm of breast COMPARISON: 10/30/2019, 03/07/2017 Technique: CC, MLO and ML views. Breast composition: The breasts are heterogeneously dense, which may obscure small masses. This is a limited and technically difficult examination. The entire RIGHT breast is not included on the images. There are scattered calcifications. Breast arterial calcifications and benign calcifications. No mas s. There is mild thickening of the skin anteriorly which could be positional and due to poor compress ion. MM/[place] [id number] IMPRESSION: BI-RADS: 2-Benign FOLLOW UP: 1 Year Follow-up
[2020-11-04 12:45] LABS: Basophils # 0.1 10^3/uL (0.0-0.1); Basophils % 0.7 %; Eosinophils # 0.1 10^3/uL (0.0-0.8); Eosinophils % 0.7 %; Hematocrit 39.2 % (37.0-47.0); Hemoglobin 12.9 g/dL (11.5-15.3); Lymphocytes # 2.6 10^3/uL (0.8-4.8); Lymphocytes % 35.8 %; Mean Corpuscular HGB Conc 32.9 g/dL (30.0-36.0); Mean Corpuscular Hemoglobin 31.4 pg (28.0-34.0); Mean Corpuscular Volume 95.4 fL (81-99); Mean Platelet Volume 10.9 fL (7.4-10.4); Monocytes # 0.7 10^3/uL (0.2-0.9); Monocytes % 9.8 %; Neutrophils # 3.83 10^3/uL (1.8-7.7); Neutrophils % 52.7 %; Nucleated Red Blood Cells % 0 %; Platelet Count 290 10^3/cmm (130-400); Red Blood Count 4.11 10^6/uL (4.1-5.3); Red Cell Distribution Width 14.1 % (12.1-15.1); White Blood Count 7.3 10^3/uL (4.0-10.0)
[2020-11-04 13:16] LABS: Estmated Average Glucose 88; Hemoglobin A1C 4.7 % (4.0-6.0)
[2020-11-04 13:30] LABS: Blood Urine 2+ (Negative); Glucose Urine UA Norm (Normal); Ketones Urine Negative (Negative); Nitrate Urine Negative (Negative); Protein Urine Neg (Negative); Urine Appearance SL Hazy (CLEAR); Urine Color Yellow (Yellow); pH Urine 6.5 (5-7)
[2020-11-04 13:31] LABS: Bacteria Urine 4+ /hpf; Bilirubin Urine Neg (Negative); Leukocyte Esterase Urine 1+ (Negative); Urobilinogen Urine 4 mg/dL (Negative); WBC Urine >100 /hpf (0-5)
[2020-11-04 13:34] LABS: Folate Level 8.7 ng/mL (4.8-37.3)
[2020-11-04 13:35] LABS: 25 Hydroxy Vitamin D 47 ng/mL (30-100); Alanine Aminotransferase 19 U/L (0-33); Albumin Level 4.3 g/dL (3.5-5.2); Alkaline Phosphatase 77 IU/L (35-105); Anion Gap 11.9 (5-19); Aspartate Amino Transferase 27 U/L (0-32); Blood Urea Nitrogen 13 mg/dL (8-23); Calcium 9.4 mg/dL (8.5-10.5); Carbon Dioxide 26 mmol/L (22-29); Chloride 94 mmol/L (98-107); Chol HDL Ratio 1.95 mg/dL (0.0-4.40); Cholesterol 177 mg/dL (0-200); Globulin 2.5 g/dL (1.3-4.6); Glucose 91 mg/dL (65-115); HDL Cholesterol 91 mg/dL (60-100); Iron 76 ug/dL (37-145); LDL Cholesterol Calculated 76 mg/dL (50-129); LDL HDL Ratio 0.84 RATIO (0.00-3.22); Osmolality Calculated 266 mOsm/kg (285-295); Percent Saturation 32.2 % (20-50); Potassium 3.9 mmol/L (3.5-5.1); Sodium 128 mmol/L (136-145); Thyroid Stimulating Hormone 0.74 uIU/mL (0.27-4.20); Total Bilirubin 0.4 mg/dL (0.15-1.2); Total Iron Binding Capacity 236 mcg/dl; Total Protein 6.8 g/dL (6.6-8.7); Triglycerides 48 mg/dL (0-150); Unsaturated Iron Binding 160 ug/dL (112-347)
[2020-11-04 14:47] LABS: T3 Free 1.1 PG/ML (2.0-4.4)
[2020-11-08 17:17] LABS: Methylmalonic Acid 446 nmol/L (87-318)
== END 2020-11-04 11:21 | disposition home or self-care (01) ==
LOC: RADSHAW 11:24
PROVIDERS: PCP Nurse Practitioner Family; Visit Provider Nurse Practitioner Family
DX: E78.2 Mixed hyperlipidemia (principal); Z85.3 Personal history of malignant neoplasm of breast; I10 Essential (primary) hypertension; E03.9 Hypothyroidism, unspecified; Z79.899 Other long term (current) drug therapy; E55.9 Vitamin D deficiency, unspecified; D64.9 Anemia, unspecified; E53.8 Deficiency of other specified B group vitamins
CPT/HCPCS: 36415; 77065; 80053; 80061; 81001; 82306; 82746; 83036; 83540; 83550; 83921; 84439; 84443; 84481; 85025

== ENCOUNTER → 2020-12-21 11:49 | Outpatient (BNVA) | payer MEDICARE, MEDICAID, SELFPAY | PROVIDERS: PCP Nurse Practitioner Family; Visit Provider Nurse Practitioner Family | DX: N39.0 Urinary tract infection, site not specified (principal) | CPT/HCPCS: 81003; 87077; 87086; 87184 ==

== ENCOUNTER → 2021-01-28 08:51 | Outpatient (BNVA) | payer MEDICARE, MEDICAID, SELFPAY | PROVIDERS: PCP Nurse Practitioner Family; Visit Provider Nurse Practitioner Psychiatric/Mental Health | DX: F20.0 Paranoid schizophrenia (principal) | CPT/HCPCS: 99214 ==

== ENCOUNTER → 2021-02-21 11:56 | Outpatient (BNVA) | payer MEDICARE, MEDICAID, SELFPAY | PROVIDERS: PCP Nurse Practitioner Family; Visit Provider Nurse Practitioner Family | DX: E03.9 Hypothyroidism, unspecified (principal) | CPT/HCPCS: 84439; 84443; 84481 ==

== ENCOUNTER → 2021-02-23 12:12 | Outpatient (BNVA) | payer MEDICARE, MEDICAID, SELFPAY | PROVIDERS: PCP Nurse Practitioner Family; Visit Provider Nurse Practitioner Family | DX: E03.9 Hypothyroidism, unspecified (principal); Z79.899 Other long term (current) drug therapy | CPT/HCPCS: 81003 ==

== ENCOUNTER 2021-04-09 14:23 | Inpatient (IN) | payer MEDICARE, MEDICAID, SELFPAY ==
[2021-04-09] VITALS (7 sets, daily range): BP systolic 75–135; BP diastolic 52–70; PULSE 70–75; RESP 16–22; TEMP 37–37.2; O2SAT 94–98
--- NOTE | 2021-04-09 14:46 | CTR_ITS ---
PROCEDURE INFORMATION: Exam: CT Cervical Spine Without Contrast Exam date and time: 04/09/2021 2:46 PM Age: 75 years old Clinical indication: Injury or trauma; Blunt trauma; Patient HX: Forward fall while walking TECHNIQUE: Imaging protocol: Computed tomography images of the cervical spine without contrast. Radiation optimization: All CT scans at this facility use at least one of these dose optimization techniques: automated exposure control; mA and/or kV adjustment per patient size (includes targeted exams where dose is matched to clinical indication); or iterative reconstruction. COMPARISON: CT cervical spin wo con* [id number] 03/20/2020 5:42 PM RADIATION DOSE METRICS: Total DLP (mGy-cm): 330.67 FINDINGS: Bones/joints: No acute fracture. Normal alignment. Discs/Spinal canal/Neural foramina: Moderate to severe facet arthropathy along the midcervical spine asymmetrically pronounced on the right. Corresponding moderate uncovertebral hypertrophy of the mid/lower cervical spine. Lungs: Mild emphysematous changes at the lung apices. Soft tissues: Unremarkable. CT/CT cervical spin wo con* [id number] IMPRESSION: No acute osseous abnormalities of the cervical spine. Radiation Dose CTDIVOL = (mGy): DLP = 330.67 (mGy-cm)
--- NOTE | 2021-04-09 14:46 | CTR_ITS ---
PROCEDURE INFORMATION: Exam: CT Maxillofacial Without Contrast Exam date and time: 04/09/2021 2:46 PM Age: 75 years old Clinical indication: Injury or trauma; Blunt trauma (contusions or hematomas); Cheek bone and forehead and orbit/periorbital; Left; Patient HX: Forward fall while walking L facial bruising; Additional info: Fall; L orbital/forehead TECHNIQUE: Imaging protocol: Computed tomography images of the face without contrast. Total images: 280 Radiation optimization: All CT scans at this facility use at least one of these dose optimization techniques: automated exposure control; mA and/or kV adjustment per patient size (includes targeted exams where dose is matched to clinical indication); or iterative reconstruction. COMPARISON: CT head wo con* [id number] 04/09/2021 4:00 PM RADIATION DOSE METRICS: Total DLP (mGy-cm): 755.32 FINDINGS: Orbital cavity: Orbits are normal. Globes are unremarkable. Bones/joints: No visible facial bone fracture. Paranasal sinuses: Normal. No air-fluid levels. Soft tissues: Mild left periorbital soft tissue swelling/contusion without visible seroma or hematoma. CT/CT facial bones wo con* [id number] IMPRESSION: 1. No visible facial bone fracture. 2. Mild left periorbital soft tissue swelling/contusion without visible seroma or hematoma. Radiation Dose CTDIVOL = (mGy): DLP = 755.32 (mGy-cm)
--- NOTE | 2021-04-09 14:46 | XRR_ITS ---
PROCEDURE INFORMATION: Exam: XR Left Femur Exam date and time: 04/09/2021 2:46 PM Age: 75 years old Clinical indication: Injury or trauma; Fall; Blunt trauma; Thigh or upper leg; Left TECHNIQUE: Imaging protocol: XR Left femur. Views: 2 views. COMPARISON: CT chest abd pel wo con 03/20/2020 5:47 PM FINDINGS: Bones/joints: Unremarkable. No acute fracture. Soft tissues: Unremarkable. Comminuted fracture involving the distal diaphysis of the left femur with foreshortening and lateral displacement of the more proximal femoral shaft. There is mild posterior angulation of the distal fracture fragment. Fracture fragments are noted measuring up to 4 cm in size. 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 XR/XR femur LT min 2V* [id number] IMPRESSION: Comminuted , displaced fracture of the distal left femur with several fracture fragments as described in the body of the report.
--- NOTE | 2021-04-09 14:47 | CTR_ITS ---
PROCEDURE INFORMATION: Exam: CT Head Without Contrast Exam date and time: 04/09/2021 2:47 PM Age: 75 years old Clinical indication: Injury or trauma; Blunt trauma (contusions or hematomas); Consciousness not specified; Patient HX: Forward fall while walking L forehead bruising; Additional info: Trauma/fall TECHNIQUE: Imaging protocol: Computed tomography of the head without contrast. Total images: 208 Radiation optimization: All CT scans at this facility use at least one of these dose optimization techniques: automated exposure control; mA and/or kV adjustment per patient size (includes targeted exams where dose is matched to clinical indication); or iterative reconstruction. COMPARISON: CT head wo con* [id number] 03/20/2020 5:38 PM RADIATION DOSE METRICS: Total DLP (mGy-cm): 1890.24 FINDINGS: Brain: No evidence of active or acute intracranial pathologic process, hemorrhage, or trauma. Moderate small vessel ischemic disease with senile periventricular leukomalacia. No visible cerebral edema. No mass effect. No midline shift. Cerebral and cerebellar atrophy with ventricular dilatation slightly greater than that anticipated for patient's chronological age. Cerebral ventricles: No ventriculomegaly. Paranasal sinuses: No visible active paranasal sinus disease. Mastoid air cells: No visible evidence for mastoiditis. Bones/joints: Unremarkable. No acute fracture. Soft tissues: Unremarkable. Other findings: Motion artifact. CT/CT head wo con* [id number] IMPRESSION: No evidence of active or acute intracranial pathologic process, hemorrhage, or trauma. Radiation Dose CTDIVOL = (mGy): DLP = 1890.24 (mGy-cm)
--- NOTE | 2021-04-09 14:47 | W.ED.FALL ---
HPI - Fall General: Chief Complaint: Fall Stated Complaint: LEFT LEG PAIN S/P FALL Time Seen by Provider: 04/09/21 14:25 Source: EMS Mode of arrival: EMS Limitations: altered mental status History of Present Illness: HPI Narrative: Patient is a 75-year-old female who presents to ED today via EMS for evaluation following a fall. Patient is reportedly a resident at [facility] which is reportedly a geriatric dementia facility. Report that I received was that patient was walking when she accidentally fell forward landing onto her bilateral knees. She was helped up with assistance and began complaining of pain to her left leg/knee. Patient upon arrival is essentially nonverbal. RN received report that she is deaf. She is able to somewhat follow commands. Caregiver is reportedly on the way. MD complaint: fall Onset (ago): hour(s) Fall from: standing Fall witnessed: yes, by bystander Place fall occurred: long term/SNF Loss of consciousness: None Prolonged down time: no Symptoms prior to fall: none Context: tripped/slipped Review of Systems General: Reports: ROS unobtainable due to medical condition and ROS unobtainable due to mental status PFS ED PFSH: Medical History (Updated 04/11/21 @ 21:09 by Hilary Santiago MD) Acquired hypothyroidism Anemia Bilateral deafness CAD (coronary artery disease) COPD (chronic obstructive pulmonary disease) Essential hypertension Folic acid deficiency GERD (gastroesophageal reflux disease) Hyperlipidemia Paranoid schizophrenia Vitamin D deficiency Surgical History H/O total mastectomy of left breast Status post cholecystectomy Social History Smoking and tobacco status: current every day smoker Physical Exam Const: COMMON NORMALS: no acute distress and alert GENERAL APPEARANCE: frail appearing ORIENTATION/CONSCIOUSNESS: Yes awake HENMT: COMMON NORMALS: normocephalic, atraumatic and Normal external nose present HEAD & SCALP: normocephalic and atraumatic FACE & SINUS: other (see has old appearing ecchymosis to L orbit and forehead) NOSE: Normal external nose present Chest: COMMONS NORMALS: normal inspection of the chest and normal palpation of entire chest wall Resp: COMMON NORMALS: normal respiratory effort and clear to auscultation bilaterally AUSCULTATION: clear to auscultation bilaterally Cardio: COMMON NORMALS: regular rate and regular rhythm RATE: regular rate RHYTHM: regular rhythm GI: COMMON NORMALS: Soft to palpation INSPECTION: Yes normal to inspection and No abdominal wall ecchymosis AUSCULTATION: Yes normoactive bowel sounds PALPATION: Yes Soft to palpation Back/Pelvis: THORACIC SPINE/UPPER BACK: Yes normal to inspection LUMBAR SPINE/LOWER BACK: Yes normal to inspection Extremity: NARRATIVE EXTREMITY EXAM: pt has contractures of bilateral UEs; exam is limited as patient does not verbalize anything; she has fairly good and seemingly painless ROM of joints of UE; she grimaces with flexion of her left knee and crepitus is noted; she has normal DP/PT pulses to bilateral LEs with normal cap refill; she does have swelling to distal anteriomedial L thigh Neuro: SENSORIUM/ORIENTATION: Yes alert Skin: NARRATIVE SKIN EXAM: ecchymosis to anterior L knee Course ED course: I entered room to speak to caregiver who has now arrived and noticed BP now 50s/30s. RN in room trying to start a line. Dr. Ramírez was prompty notified and will assume care. Vital Signs: Vital signs: Vital Signs Temperature 98.9 F 04/12/21 03:56 Pulse Rate 65 04/12/21 03:56 Respiratory Rate 16 04/12/21 03:56 Blood Pressure 134/66 04/12/21 03:56 Pulse Oximetry 96 04/12/21 03:56 MDM - Fall Lab Data: Labs: Lab Results 04/09/21 04/09/21 04/09/21 Range/Units 15:25 15:25 15:25 WBC 30.3 H* (4.0-10.0) 10^3/ uL RBC 3.33 L (4.1-5.3) 10^6/u L Hgb 10.7 L (11.5-15.3) g/dL Hct 31.0 L (37.0-47.0) % MCV 93.1 (81-99) fL MCH 32.1 (28.0-34.0) pg MCHC 34.5 (30.0-36.0) g/dL RDW 13.6 (12.1-15.1) % Plt Count 220 (130-400) 10^3/c mm MPV 10.7 H (7.4-10.4) fL Neut % (Auto) 82.1 % Lymph % (Auto) 2.0 % Mcmullen % (Auto) 6.9 % Eos % (Auto) 0.1 % Baso % (Auto) 0.1 % Neut # (Auto) 24.88 H (1.8-7.7) 10^3/u L Lymph # (Auto) 0.6 L (0.8-4.8) 10^3/u L Mcmullen # (Auto) 2.1 H (0.2-0.9) 10^3/u L Eos # (Auto) 0.0 (0.0-0.8) 10^3/u L Baso # (Auto) 0.0 (0.0-0.1) 10^3/u L Nucleated RBC % (a uto) 0 % Nucleated RBCs # 0.0 /100WBC Sodium 127 L (136-145) mmol/L Potassium 3.3 L (3.5-5.1) mmol/L Chloride 91 L (98-107) mmol/L Carbon Dioxide 23 (22-29) mmol/L Anion Gap 16.3 (5-19) BUN 29 H (8-23) mg/dL Creatinine 1.7 H (0.5-0.9) mg/dL GFR Calculation Not Reportable Glucose 78 (65-115) mg/dL Calculated Osmolal ity 269 L (285-295) mOsm/k g Lactic Acid (0.5-2.2) mmol/L Calcium 8.4 L (8.5-10.5) mg/dL Total Bilirubin 0.5 (0.15-1.2) mg/dL AST 56 H (0-32) U/L ALT 53 H (0-33) U/L Alkaline Phosphata se 175 H (35-105) IU/L Troponin T Baselin e 22 H (0-10) ng/L Troponin T 120 Min [place] (0-10) ng/L Delta Troponin T (0-10) ABS# Total Protein 5.2 L (6.6-8.7) g/dL Albumin 2.7 L (3.5-5.2) g/dL Globulin 2.5 (1.3-4.6) g/dL Urine Color (Yellow) Urine Appearance (CLEAR) Urine pH (5-7) Ur Specific Gravit y (1.005-1.030) Urine Protein (Negative) Urine Glucose (UA) (Normal) Urine Ketones (Negative) Urine Blood (Negative) Urine Nitrate (Negative) Urine Bilirubin (Negative) Urine Urobilinogen (Negative) mg/dL Ur Leukocyte Olinda ase (Negative) Urine RBC (0-2) /hpf Urine WBC (0-5) /hpf Ur Squamous Epith Cells (0-5) /hpf Amorphous Sediment Urine Bacteria (NONE) /hpf Blood Type Rho(D) Type Antibody Screen Crossmatch 04/09/21 04/09/21 04/09/21 Range/Units 15:30 16:40 17:07 WBC (4.0-10.0) 10^3/ uL RBC (4.1-5.3) 10^6/u L Hgb (11.5-15.3) g/dL Hct (37.0-47.0) % MCV (81-99) fL MCH (28.0-34.0) pg MCHC (30.0-36.0) g/dL RDW (12.1-15.1) % Plt Count (130-400) 10^3/c mm MPV (7.4-10.4) fL Neut % (Auto) % Lymph % (Auto) % Mcmullen % (Auto) % Eos % (Auto) % Baso % (Auto) % Neut # (Auto) (1.8-7.7) 10^3/u L Lymph # (Auto) (0.8-4.8) 10^3/u L Mcmullen # (Auto) (0.2-0.9) 10^3/u L Eos # (Auto) (0.0-0.8) 10^3/u L Baso # (Auto) (0.0-0.1) 10^3/u L Nucleated RBC % (a uto) % Nucleated RBCs # /100WBC Sodium (136-145) mmol/L Potassium (3.5-5.1) mmol/L Chloride (98-107) mmol/L Carbon Dioxide (22-29) mmol/L Anion Gap (5-19) BUN (8-23) mg/dL Creatinine (0.5-0.9) mg/dL GFR Calculation Glucose (65-115) mg/dL Calculated Osmolal ity (285-295) mOsm/k g Lactic Acid 1.1 (0.5-2.2) mmol/L Calcium (8.5-10.5) mg/dL Total Bilirubin (0.15-1.2) mg/dL AST (0-32) U/L ALT (0-33) U/L Alkaline Phosphata se (35-105) IU/L Troponin T Baselin e (0-10) ng/L Troponin T 120 Min [place] (0-10) ng/L Delta Troponin T (0-10) ABS# Total Protein (6.6-8.7) g/dL Albumin (3.5-5.2) g/dL Globulin (1.3-4.6) g/dL Urine Color [place] (Yellow) Urine Appearance Cloudy (CLEAR) Urine pH 5 (5-7) Ur Specific Gravit y 1.010 (1.005-1.030) Urine Protein 1+ H (Negative) Urine Glucose (UA) Norm (Normal) Urine Ketones Negative (Negative) Urine Blood 3+ H (Negative) Urine Nitrate Negative (Negative) Urine Bilirubin Neg (Negative) Urine Urobilinogen 1 H (Negative) mg/dL Ur Leukocyte Olinda ase 2+ H (Negative) Urine RBC 5-10 H (0-2) /hpf Urine WBC >100 H (0-5) /hpf Ur Squamous Epith Cells None (0-5) /hpf Amorphous Sediment Not Reportable Urine Bacteria 3+ H (NONE) /hpf Blood Type O Positive Rho(D) Type Positive / 4+ Antibody Screen Negative Crossmatch See Detail 04/09/21 Range/Units 17:39 WBC (4.0-10.0) 10^3/ uL RBC (4.1-5.3) 10^6/u L Hgb (11.5-15.3) g/dL Hct (37.0-47.0) % MCV (81-99) fL MCH (28.0-34.0) pg MCHC (30.0-36.0) g/dL RDW (12.1-15.1) % Plt Count (130-400) 10^3/c mm MPV (7.4-10.4) fL Neut % (Auto) % Lymph % (Auto) % Mcmullen % (Auto) % Eos % (Auto) % Baso % (Auto) % Neut # (Auto) (1.8-7.7) 10^3/u L Lymph # (Auto) (0.8-4.8) 10^3/u L Mcmullen # (Auto) (0.2-0.9) 10^3/u L Eos # (Auto) (0.0-0.8) 10^3/u L Baso # (Auto) (0.0-0.1) 10^3/u L Nucleated RBC % (a uto) % Nucleated RBCs # /100WBC Sodium (136-145) mmol/L Potassium (3.5-5.1) mmol/L Chloride (98-107) mmol/L Carbon Dioxide (22-29) mmol/L Anion Gap (5-19) BUN (8-23) mg/dL Creatinine (0.5-0.9) mg/dL GFR Calculation Glucose (65-115) mg/dL Calculated Osmolal ity (285-295) mOsm/k g Lactic Acid (0.5-2.2) mmol/L Calcium (8.5-10.5) mg/dL Total Bilirubin (0.15-1.2) mg/dL AST (0-32) U/L ALT (0-33) U/L Alkaline Phosphata se (35-105) IU/L Troponin T Baselin e (0-10) ng/L Troponin T 120 Min [place] 19.07 H (0-10) ng/L Delta Troponin T -2.93 L (0-10) ABS# Total Protein (6.6-8.7) g/dL Albumin (3.5-5.2) g/dL Globulin (1.3-4.6) g/dL Urine Color (Yellow) Urine Appearance (CLEAR) Urine pH (5-7) Ur Specific Gravit y (1.005-1.030) Urine Protein (Negative) Urine Glucose (UA) (Normal) Urine Ketones (Negative) Urine Blood (Negative) Urine Nitrate (Negative) Urine Bilirubin (Negative) Urine Urobilinogen (Negative) mg/dL Ur Leukocyte Olinda ase (Negative) Urine RBC (0-2) /hpf Urine WBC (0-5) /hpf Ur Squamous Epith Cells (0-5) /hpf Amorphous Sediment Urine Bacteria (NONE) /hpf Blood Type Rho(D) Type Antibody Screen Crossmatch Discharge Plan Discharge Patient Disposition: Admitted As Inpatient Admit Provider: Omega Mike Coding Level of Care Code ED Stove Mechanic for Chg Fwd Exam Detailed
--- NOTE | 2021-04-09 15:20 | ECG_ITS ---
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 Measurements Intervals [place] Rate: 76 P: 267 KS: 138 QRS: 116 QRSD: 148 T: -80 QT: 293 QTc: 330 Interpretive Statements UNDETERMINED RHYTHM BECAUSE OF BASELINE ARTIFACT LEFT ATRIAL ENLARGEMENT [-0.15mV P WAVE IN V1/V2] INDETERMINATE AXIS INTRAVENTRICULAR CONDUCTION DELAY [130+ ms QRS DURATION] Compared to ECG 03/20/2020 19:22:41 Junctional rhythm now present Atrial abnormality now present Indeterminate axis now present Intraventricular conduction delay now present Sinus bradycardia no longer present Left ventricular hypertrophy no longer present ST (T wave) deviation no longer present Electronically Signed On 04-10-2021 17:22:44 CDT by Demarcus Rene M.D. [id number]
--- NOTE | 2021-04-09 15:20 | XRR_ITS ---
PROCEDURE INFORMATION: Exam: XR Chest Exam date and time: 04/09/2021 3:20 PM Age: 75 years old Clinical indication: Injury or trauma; Fall; Blunt trauma (contusions or hematomas); Additional info: Admit TECHNIQUE: Imaging protocol: XR of the chest. Views: 1 view. Total images: 1 COMPARISON: CT chest abd pel wo con 03/20/2020 5:47 PM FINDINGS: Lungs: No visible active interstitial or alveolar airspace disease. COPD/chronic bronchitis. Senile fibrosis. Pleural spaces: Unremarkable. No pleural effusion. No pneumothorax. Heart/Mediastinum: Cardiac structures and configuration with cardiomegaly. Arteriosclerosis. Bones/joints: Unremarkable for age. XR/XR chest 1V portable [id number] IMPRESSION: Nonacute.
[2021-04-09 15:29] LABS: Basophils % 0.1 %; Eosinophils % 0.1 %; Hemoglobin 10.7 g/dL (11.5-15.3); Lymphocytes # 0.6 10^3/uL (0.8-4.8); Mean Corpuscular HGB Conc 34.5 g/dL (30.0-36.0); Mean Corpuscular Hemoglobin 32.1 pg (28.0-34.0); Mean Corpuscular Volume 93.1 fL (81-99); Mean Platelet Volume 10.7 fL (7.4-10.4); Monocytes # 2.1 10^3/uL (0.2-0.9); Monocytes % 6.9 %; Neutrophils # 24.88 10^3/uL (1.8-7.7); Neutrophils % 82.1 %; Nucleated Red Blood Cells % 0 %; Platelet Count 220 10^3/cmm (130-400); Red Blood Count 3.33 10^6/uL (4.1-5.3); Red Cell Distribution Width 13.6 % (12.1-15.1)
--- NOTE | 2021-04-09 15:29 | CTR_ITS ---
PROCEDURE INFORMATION: Exam: CTA Left Lower Extremity With Contrast Exam date and time: 04/09/2021 3:29 PM Age: 75 years old Clinical indication: Injury or trauma; Fracture, traumatic; Displaced; Left; Lower end of femur; Patient HX: Forward fall while walking L distal femur fracture TECHNIQUE: Imaging protocol: Computed tomographic angiography of the Left lower extremity with intravenous contrast. 3D rendering (Not supervised by radiologist): MIP and/or 3D reconstructed images were created by the technologist. Radiation optimization: All CT scans at this facility use at least one of these dose optimization techniques: automated exposure control; mA and/or kV adjustment per patient size (includes targeted exams where dose is matched to clinical indication); or iterative reconstruction. Contrast material: VISI 320; Contrast volume: 95 ml; Contrast route: INTRAVENOUS (IV); COMPARISON: CR (LOW EXM, ) 04/09/2021 2:54 PM RADIATION DOSE METRICS: Total DLP (mGy-cm): 1205.89 FINDINGS: Left femoral/popliteal arteries: The popliteal arteries seen traversing posterior to the distal left femoral fracture fragment. There is no evidence of injury to the popliteal artery in this region such as contrast extravasation, pseudoaneurysm, or luminal narrowing/occlusion. Left infrapopliteal arteries: No occlusion or significant stenosis. Bones/joints: Redemonstration of a distal left femoral comminuted fracture with roughly 10 cm of foreshortening and 3 cm posterior displacement of the distal femoral shaft. The fracture does not extend into the left knee joint. Two fracture fragments are visible, the largest fragment measures 4 cm series 201, image 33 and the adjacent smaller fragment measures 2 cm series 201, image 34. Moderate tricompartmental DJD of both knees with small joint effusions. Deep femoral branches are intimately associated with the displaced fracture fragments but with no contrast blush to indicate active extravasation or hematoma formation. 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 Soft tissues: Unremarkable. CT/[place] [id number] IMPRESSION: Redemonstrated comminuted displaced distal left femur fracture. No evidence of vascular injury. Radiation Dose CTDIVOL = (mGy): DLP = 1205.89 (mGy-cm)
--- NOTE | 2021-04-09 15:38 | PC.NURSE ---
upon rounding pt BP noted to be significantly lower that triage vitals. Pt was reassessed and IV line started. Faith FOREPART REDUCER and Daily RN notified. Repeat BP 55/33, Verbal orders obtained and 1 liter NS started with pressure bag.
--- NOTE | 2021-04-09 15:44 | PC.NURSE ---
pt left leg splinted with pillow as ordered
[2021-04-09] MEDS: sodium chloride 0.9% 1,000 ML 999 ML IV (15:49)
[2021-04-09 16:00] LABS: Slide Review Slide Review Perform; White Blood Count 30.3 10^3/uL (4.0-10.0)
[2021-04-09 16:05] LABS: Alanine Aminotransferase 53 U/L (0-33); Albumin Level 2.7 g/dL (3.5-5.2); Alkaline Phosphatase 175 IU/L (35-105); Anion Gap 16.3 (5-19); Aspartate Amino Transferase 56 U/L (0-32); Blood Urea Nitrogen 29 mg/dL (8-23); Calcium 8.4 mg/dL (8.5-10.5); Carbon Dioxide 23 mmol/L (22-29); Chloride 91 mmol/L (98-107); Globulin 2.5 g/dL (1.3-4.6); Glucose 78 mg/dL (65-115); Osmolality Calculated 269 mOsm/kg (285-295); Potassium 3.3 mmol/L (3.5-5.1); Sodium 127 mmol/L (136-145); Total Bilirubin 0.5 mg/dL (0.15-1.2); Total Protein 5.2 g/dL (6.6-8.7)
[2021-04-09] MEDS: iodixanol 320 mg/mL 100mL Btl IV (16:27)
--- NOTE | 2021-04-09 16:28 | ECG_ITS ---
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 Measurements Intervals [place] Rate: 76 P: 84 SD: 180 QRS: -12 QRSD: 102 T: 76 QT: 384 QTc: 433 Interpretive Statements SINUS RHYTHM POSSIBLE RIGHT VENTRICULAR CONDUCTION DELAY [RSR (QR) IN V1/V2] NONSPECIFIC ST & T-WAVE ABNORMALITY Compared to ECG 04/09/2021 15:56:54 T-wave abnormality now present Junctional rhythm no longer present Atrial abnormality no longer present Indeterminate axis no longer present Intraventricular conduction delay no longer present Electronically Signed On 04-10-2021 17:08:42 CDT by Demarcus Rene M.D. [email or web address]/[id number] f
[2021-04-09 16:53] LABS: Troponin(5th) Baseline 22 ng/L (0-10)
[2021-04-09 17:14] LABS: Blood Urine 3+ (Negative); Glucose Urine UA Norm (Normal); Ketones Urine Negative (Negative); Protein Urine 1+ (Negative); Urine Appearance Cloudy (CLEAR); Urine Color Amber (Yellow); pH Urine 5 (5-7)
[2021-04-09 17:15] LABS: Add Urine Microscopic? YES; Bilirubin Urine Neg (Negative); Leukocyte Esterase Urine 2+ (Negative); Nitrate Urine Negative (Negative); Urobilinogen Urine 1 mg/dL (Negative)
[2021-04-09 17:15] LABS: Lactic Sepsis W/Reflex 1.1 mmol/L (0.5-2.2)
[2021-04-09 17:20] LABS: Add Urine Culture? Yes; Bacteria Urine 3+ /hpf; WBC Urine >100 /hpf (0-5)
[2021-04-09 18:02] LABS: Troponin 5 2HR 19.07 ng/L (0-10)
[2021-04-09 18:03] LABS: Troponin 5 2HR Delta -2.93 ABS# (0-10)
--- NOTE | 2021-04-09 18:28 | ECG_ITS ---
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 Measurements Intervals [place] Rate: 77 P: 60 MS: 145 QRS: -11 QRSD: 108 T: 63 QT: 380 QTc: 432 Interpretive Statements SINUS RHYTHM ST DEVIATION AND MODERATE T-WAVE ABNORMALITY, CONSIDER ANTERIOR ISCHEMIA [-0.1+ mV T WAVE IN V3/V4] Compared to ECG 04/09/2021 16:26:36 Possible ischemia now present T-wave abnormality still present Electronically Signed On 04-10-2021 17:21:42 CDT by Demarcus Rene M.D. [id number]
[2021-04-09] MEDS: cefTRIAXone 2,000 MG in sodium chloride 0.9% (plus) 50 ML 100 MG IV (19:46)
[2021-04-09] MEDS: fentaNYL 50 mcg/mL INJ 2mL IVP (19:47)
--- NOTE | 2021-04-09 21:29 | P.HP_ITS ---
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 After that she has been complaining of left leg/knee pain. Patient is nonverbal and deaf.She does lip reading. Upon arrival in the ER she was worked up for above-mentioned complaint. Imaging studies: CT head without contrast: No acute intracranial pathology, CT facial bones wo con: No visible facial bone fracture. Mild left periorbital soft tissue swelling/contusion without visible seroma or hematoma. CT cervical spin wo con:No acute osseous abnormalities of the cervical spine. CT angio LE BI: No evidence of vascular injury. XR chest : No visible active interstitial or alveolar airspace disease. COPD/chronic bronchitis. Senile fibrosis. x-ray femur:Comminuted , displaced fracture of the distal left femur. Review of Systems Narrative: Cannot be obtained. Medications/Allergies Home Medications Medication Instructions Recorded Confirmed Last Taken Type aspirin 81 mg tablet,delayed 81 mg PO DAILY@10/28/19 04/09/21 04/09/21 07:00 History release docusate sodium 100 mg capsule 100 mg PO BID@10/28/19 04/09/21 04/09/21 07:00 History ferrous sulfate 325 mg (65 mg 325 mg PO DAILY@10/28/19 04/09/21 04/09/21 07:00 History iron) tablet multivitamin 1 tab PO DAILY@10/28/19 04/09/21 04/09/21 07:00 History pantoprazole 40 mg tablet,delayed 40 mg PO DAILY@10/28/19 04/09/21 04/09/21 07:00 History release simvastatin 20 mg PO DAILY@03/20/20 04/09/21 04/08/21 History oxybutynin chloride 5 mg tablet 5 mg PO BID@10/22/20 04/09/21 04/09/21 07:00 History nitroglycerin 0.4 mg sublingual 0.4 mg SUBLINGUAL Q5M PRN #30 tab 12/14/20 04/09/21 Unknown Rx tablet haloperidol 2 mg tablet 2 mg PO BID PRN #60 tab 01/28/21 04/09/21 Unknown Rx lorazepam 0.5 mg tablet 0.25 mg PO BID PRN #30 tab 01/28/21 04/09/21 Unknown Rx Depakote ER 250 mg PO BID@04/09/21 04/09/21 04/09/21 07:00 History Prozac 20 mg PO DAILY@04/09/21 04/09/21 04/09/21 07:00 History amiodarone 200 mg PO DAILY@04/09/21 04/09/21 04/09/21 07:00 History calcium carbonate-vitamin D3 1 tab PO BID@04/09/21 04/09/21 04/09/21 07:00 History [Oyster Shell + D3] fluticasone furoate-vilanterol 1 inh INHALATION DAILY@04/09/21 04/09/21 04/09/21 07:00 History [Breo Ellipta] ibuprofen 600 mg PO TID@,,04/09/21 04/09/21 04/09/21 07:00 History levothyroxine 25 mcg PO DAILY@04/09/21 04/09/21 04/08/21 History montelukast 10 mg PO DAILY@04/09/21 04/09/21 04/08/21 History perphenazine 6 mg PO DAILY@04/09/21 04/09/21 04/09/21 07:00 History Allergies Allergy/AdvReac Type Severity Reaction Status Date / Time beta blockers Allergy Unknown Uncoded 04/09/21 15:54 PFSH Acute PFSH: Medical History (Updated 04/10/21 @ 14:33 by Omega Mike MD) Acquired hypothyroidism Anemia Bilateral deafness CAD (coronary artery disease) COPD (chronic obstructive pulmonary disease) Essential hypertension Folic acid deficiency GERD (gastroesophageal reflux disease) Hyperlipidemia Paranoid schizophrenia Vitamin D deficiency Surgical History H/O total mastectomy of left breast Status post cholecystectomy Social History Smoking and tobacco status: current every day smoker Vitals/I&O/Wt Last Vital Signs Temp 98.6 F 04/09/21 14:39 Pulse 73 04/09/21 15:45 Resp 16 04/09/21 19:47 BP 135/53 04/09/21 15:45 Pulse Ox 94 04/09/21 15:45 Physical Exam Resp: EFFORT & INSPECTION: Yes symmetric chest movement AUSCULTATION: clear to auscultation bilaterally Cardio: COMMON NORMALS: regular rate, regular rhythm, S1 normal heart sound pr esent, S2 normal heart sound present, No gallops present (Cardio), No murmurs present (Cardio), No rub (Cardio) and Peripheral pulses 2+ throughout RATE: regular rate RHYTHM: regular rhythm HEART SOUNDS: S1 normal heart sound present and S2 normal heart sound present PERIPHERAL PULSES: Peripheral pulses 2+ throughout GI: COMMON NORMALS: Normal to inspection, nondistended, normoactive bowel sounds present, Soft to palpation, non-tender, No hepatosplenomegaly present and no masses AUSCULTATION: Yes normoactive bowel sounds PALPATION: Yes Soft to palpation and Yes No hepatosplenomegaly present RECTAL EXAM: deferred Extremity: COMMON NORMALS: no clubbing, cyanosis or edema and no pedal edema Urinary Catheter Management^: Velázquez: Cath Placed During This Visit: yes Urinary Catheter Date of Insertion: 04/09/21 Urinary Catheter Time of Insertion: 17:16 Data : 04/10/21 05:30 04/10/21 05:30 Micro: Microbiology 04/09/21 16:40 Blood Culture - Preliminary Blood SPECIMEN COLLECTED 04/09/21 16:47 Blood Culture - Preliminary Blood SPECIMEN COLLECTED A&P Assessment and plan (1) Femur fracture, left: Comminuted , displaced fracture of the distal left femur with several fracture fragments. Pain control Orthopedics on board Anticoagulation as per orthopedics. Status: Acute (2) UTI (urinary tract infection): Follow urine culture Continue ceftriaxone for now Status: Acute (3) Leukocytosis: Leukocytosis likely secondary to stress. Lactic acid is normal Follow blood culture Follow urine culture X-ray chest is normal Continue ceftriaxone for now Status: Acute (4) KEVYN (acute kidney injury): KEVYN likely secondary to dehydration Monitor BMP IV hydration with normal saline at 75 cc an hour Avoid nephrotoxic medication Status: Acute (5) Hyponatremia: Hypovolemic hyponatremia Continue IV hydration Status: Acute (6) Anemia: Normocytic anemia. Monitor CBC Transfuse to maintain hemoglobin greater than 7 Status: Acute Qualifiers: Anemia type: unspecified type Qualified Code(s): D64.9 - Anemia, unspecified (7) Hypokalemia: Monitor BMP and replace potassium Status: Acute (8) COPD (chronic obstructive pulmonary disease): Currently not in exacerbation Status: Acute Qualifiers: COPD type: unspecified COPD Qualified Code(s): J44.9 - Chronic obstructive pulmonary disease, unspecified (9) Transaminitis: Likely secondary to severe dehydration Monitor BMP Status: Acute (10) Essential hypertension: Status: Acute (11) Acquired hypothyroidism: Status: Acute (12) CAD (coronary artery disease): Status: Acute (13) Bilateral deafness: Status: Acute Attestations Medical Necessity Statement*: Patient needs to be in hospital for management of, femur fracture, leukocytosis , UTI , severe dehydration, KEVYN. Anticipated length of stay greater than 2 midnights. Coding Level of Care Code Acute Clinical Laboratory Aide for [facility] Fwd Diagnoses Femur fracture, left S72.92XA UTI (urinary tract infection) N39.0 Leukocytosis D72.829 KEVYN (acute kidney injury) N17.9 Hyponatremia E87.1 Anemia D64.9 Anemia type: unspecified type Hypokalemia E87.6 COPD (chronic obstructive pulmonary disease) J44.9 COPD type: unspecified COPD Transaminitis R74.01 Essential hypertension I10 Acquired hypothyroidism E03.9 CAD (coronary artery disease) I25.10 Bilateral deafness H91.93
[2021-04-09 21:58] LABS: Troponin 5 6HR 19.07 ng/L (0-10)
[2021-04-09 22:11] LABS: Troponin 5 6HR Delta -2.93 ng/L (0-12)
[2021-04-09 22:52] LABS: SARS Covid-2 Antigen Negative (Negative)
[2021-04-09] MEDS: enoxaparin 40 mg/0.4 mL Syringe SUBCUT (23:15)
[2021-04-09] MEDS: morphine 4 mg/mL SDV 1 mL 2 MG IVP (23:16)
[2021-04-10] VITALS (8 sets, daily range): BP systolic 107–131; BP diastolic 53–78; PULSE 65–76; RESP 16–22; TEMP 36.5–37.2; O2SAT 94–96
[2021-04-10] MEDS: lidocaine 1% 5 ML in potassium chloride premix 100 ML 25 ML IV ×2 (04:35→12:01)
[2021-04-10] MEDS: sodium chloride 0.9% 1,000 ML 100 ML IV (04:38)
[2021-04-10 06:04] LABS: Basophils % 0.1 %; Eosinophils % 0.1 %; Hematocrit 27.8 % (37.0-47.0); Hemoglobin 9.4 g/dL (11.5-15.3); Lymphocytes # 0.5 10^3/uL (0.8-4.8); Lymphocytes % 1.7 %; Mean Corpuscular HGB Conc 33.8 g/dL (30.0-36.0); Mean Corpuscular Hemoglobin 31.6 pg (28.0-34.0); Mean Corpuscular Volume 93.6 fL (81-99); Mean Platelet Volume 11.3 fL (7.4-10.4); Monocytes % 6.7 %; Neutrophils # 25.54 10^3/uL (1.8-7.7); Neutrophils % 85.4 %; Nucleated Red Blood Cells % 0 %; Platelet Count 205 10^3/cmm (130-400); Positive C 1; Positive M 1; Red Blood Count 2.97 10^6/uL (4.1-5.3); Red Cell Distribution Width 13.9 % (12.1-15.1); White Blood Count 29.9 10^3/uL (4.0-10.0)
[2021-04-10 06:40] LABS: Alanine Aminotransferase 45 U/L (0-33); Albumin Level 2.3 g/dL (3.5-5.2); Alkaline Phosphatase 157 IU/L (35-105); Anion Gap 13.7 (5-19); Aspartate Amino Transferase 46 U/L (0-32); Blood Urea Nitrogen 30 mg/dL (8-23); Calcium 7.6 mg/dL (8.5-10.5); Carbon Dioxide 17 mmol/L (22-29); Chloride 100 mmol/L (98-107); Globulin 2.2 g/dL (1.3-4.6); Glucose 41 mg/dL (65-115); Osmolality Calculated 269 mOsm/kg (285-295); Sodium 128 mmol/L (136-145); Total Bilirubin 0.5 mg/dL (0.15-1.2); Total Protein 4.5 g/dL (6.6-8.7)
[2021-04-10 06:46] LABS: Potassium 2.7 mmol/L (3.5-5.1)
[2021-04-10] MEDS: oxyCODONE-APAP 5-325 mg Tablet 1 TAB PO (12:22)
[2021-04-10] MEDS: sodium chloride 0.9% 1,000 ML 75 ML IV (15:10)
--- NOTE | 2021-04-10 16:09 | PM.PN ---
Subjective Subjective: Interval history: Patient was seen and examined this morning, seen resting comfortably in bed, pain is well controlled, leukocytosis has persisted, no overt signs of sepsis. Has remained afebrile, other vitals and labs have been reviewed. Medications: Reviewed: Yes Vitals/I&O/Wt Last Vital Signs Temp 98.3 F 04/10/21 12:00 Pulse 67 04/10/21 12:00 Resp 17 04/10/21 12:22 BP 120/68 04/10/21 12:00 Pulse Ox 94 04/10/21 12:22 04/10/21 04/10/21 04/10/21 06:59 14:59 22:59 Intake Total 1050 / 1050 1811.667 / 1811.667 Output Total 400 / 400 Balance 650 / 650 1811.667 / 1811.667 Weight last 48 hrs Weight 67.948 kg Physical Exam Resp: COMMON NORMALS: clear to auscultation bilaterally EFFORT & INSPECTION: Yes symmetric chest movement AUSCULTATION: clear to auscultation bilaterally Cardio: COMMON NORMALS: regular rate, regular rhythm, S1 normal heart sound present, S2 normal heart sound present, No gallops present (Cardio), No murmurs present (Cardio), No rub (Cardio) and Peripheral pulses 2+ throughout RATE: regular rate RHYTHM: regular rhythm HEART SOUNDS: S1 normal heart sound present and S2 normal heart sound present PERIPHERAL PULSES: Peripheral pulses 2+ throughout GI: COMMON NORMALS: Normal to inspection, nondistended, normoactive bowel sounds present, Soft to palpation, non-tender, No hepatosplenomegaly present and no masses AUSCULTATION: Yes normoactive bowel sounds PALPATION: Yes Soft to palpation and Yes No hepatosplenomegaly present RECTAL EXAM: deferred Extremity: COMMON NORMALS: no clubbing, cyanosis or edema and no pedal edema Urinary Catheter Management^: Velázquez: Cath Placed During This Visit: yes Reason for Continuing Indwelling Catheter: Required Immobilization for Trauma or Surgery or Anesthesia Urinary Catheter Date of Insertion: 04/09/21 Urinary Catheter Time of Insertion: 17:16 Data : 04/10/21 05:30 04/10/21 05:30 Micro: Microbiology 04/09/21 16:40 Blood Culture - Preliminary Blood Gram Negative Rods 04/09/21 16:47 Blood Culture - Preliminary Blood Gram Negative Rods A&P Assessment and plan (1) Femur fracture, left: Comminuted , displaced fracture of the distal left femur with several fracture fragments. Pain control Orthopedics on board Anticoagulation as per orthopedics. Status: Acute (2) UTI (urinary tract infection): Follow urine culture Continue ceftriaxone for now Status: Acute (3) Leukocytosis: Leukocytosis likely secondary to stress. Lactic acid is normal Follow blood culture Follow urine culture X-ray chest is normal Continue ceftriaxone for now Status: Acute (4) KEVYN (acute kidney injury): KEVYN likely secondary to dehydration Baseline SCR : 0.5-0.6 Current SCR : 1.7 Monitor BMP IV hydration with normal saline at 75 cc an hour Avoid nephrotoxic medication Urine electrolytes FENA Intake output monitoring Status: Acute (5) Hyponatremia: Hypovolemic hyponatremia Continue IV hydration Monitor BMP TSH Cortisol Serum osmolality Urine osmolality Intake output monitoring Status: Acute (6) Anemia: Normocytic anemia. Monitor CBC Transfuse to maintain hemoglobin greater than 7 Status: Acute Qualifiers: Anemia type: unspecified type Qualified Code(s): D64.9 - Anemia, unspecified (7) Hypokalemia: Monitor BMP and replace potassium Status: Acute (8) COPD (chronic obstructive pulmonary disease): Currently not in exacerbation Status: Acute Qualifiers: COPD type: unspecified COPD Qualified Code(s): J44.9 - Chronic obstructive pulmonary disease, unspecified (9) Transaminitis: Likely secondary to severe dehydration Monitor BMP Status: Acute (10) Essential hypertension: Status: Acute (11) Acquired hypothyroidism: Continue levothyroxine 25 mcg p.o. daily Follow TSH Status: Acute (12) CAD (coronary artery disease): Status: Acute (13) Bilateral deafness: Status: Acute Attestations Medical Necessity Statement*: Patient needs to be in hospital for management of, fracture of femur and other comorbid conditions Coding Level of Care Code Acute Leisure Studies Professor for [facility] Fwd Exam Expanded Problem Focused Diagnoses Femur fracture, left S72.92XA UTI (urinary tract infection) N39.0 Leukocytosis D72.829 KEVYN (acute kidney injury) N17.9 Hyponatremia E87.1 Anemia D64.9 Anemia type: unspecified type Hypokalemia E87.6 COPD (chronic obstructive pulmonary disease) J44.9 COPD type: unspecified COPD Transaminitis R74.01 Essential hypertension I10 Acquired hypothyroidism E03.9 CAD (coronary artery disease) I25.10 Bilateral deafness H91.93
--- NOTE | 2021-04-10 16:44 | P.CONIM_ITS ---
Providers/Reason For Consult Consulting Physician/Specialty*: Neal Gongora MD; orthopedic surgery Reason for Consult*: Left distal femur fracture Attending Physician: Omega Mike MD Primary Care Provider: JUSTINE Nash History of Present Illness History of Present Illness Montse Vu is a 75 year old female who is a resident of [place], she apparently was walking and fell forward landing on both knees. She described immediate onset leg pain and was transferred to our emergency room where radiographs revealed a comminuted displaced fracture of the left distal femur. She is admitted for management of that fracture. She is unable to give any history as she has underlying dementia. Meds/Allergies Home Medications and Allergies Home Medications Medication Instructions Recorded Confirmed Last Taken Type aspirin 81 mg tablet,delayed 81 mg PO DAILY@10/28/19 04/09/21 04/09/21 07:00 History release docusate sodium 100 mg capsule 100 mg PO BID@10/28/19 04/09/21 04/09/21 07:00 History ferrous sulfate 325 mg (65 mg 325 mg PO DAILY@10/28/19 04/09/21 04/09/21 07:00 History iron) tablet multivitamin 1 tab PO DAILY@10/28/19 04/09/21 04/09/21 07:00 History pantoprazole 40 mg tablet,delayed 40 mg PO DAILY@10/28/19 04/09/21 04/09/21 07:00 History release simvastatin 20 mg PO DAILY@03/20/20 04/09/21 04/08/21 History oxybutynin chloride 5 mg tablet 5 mg PO BID@10/22/20 04/09/21 04/09/21 07:00 History nitroglycerin 0.4 mg sublingual 0.4 mg SUBLINGUAL Q5M PRN #30 tab 12/14/20 04/09/21 Unknown Rx tablet haloperidol 2 mg tablet 2 mg PO BID PRN #60 tab 01/28/21 04/09/21 Unknown Rx lorazepam 0.5 mg tablet 0.25 mg PO BID PRN #30 tab 01/28/21 04/09/21 Unknown Rx Depakote ER 250 mg PO BID@04/09/21 04/09/21 04/09/21 07:00 History Prozac 20 mg PO DAILY@04/09/21 04/09/21 04/09/21 07:00 History amiodarone 200 mg PO DAILY@04/09/21 04/09/21 04/09/21 07:00 History calcium carbonate-vitamin D3 1 tab PO BID@04/09/21 04/09/21 04/09/21 07:00 History [Oyster Shell + D3] fluticasone furoate-vilanterol 1 inh INHALATION DAILY@04/09/21 04/09/21 04/09/21 07:00 History [Breo Ellipta] ibuprofen 600 mg PO TID@,,04/09/21 04/09/21 04/09/21 07:00 History levothyroxine 25 mcg PO DAILY@04/09/21 04/09/21 04/08/21 History montelukast 10 mg PO DAILY@04/09/21 04/09/21 04/08/21 History perphenazine 6 mg PO DAILY@04/09/21 04/09/21 04/09/21 07:00 History Allergies Allergy/AdvReac Type Severity Reaction Status Date / Time beta blockers Allergy Unknown Uncoded 04/09/21 15:54 Current Medications Current Medications Generic Name Dose Route Start Last Admin Trade Name Freq PRN Reason Stop Dose Admin Enoxaparin Sodium 40 mg 04/09/21 20:30 04/09/21 23:15 Enoxaparin 40 Mg/0.4 Ml Syringe SUBCUT 40 mg Q24H AYLA Administration Sodium Chloride 1,000 mls @ 75 mls/hr 04/10/21 13:15 04/10/21 15:10 Sodium Chloride 0.9% IV 75 mls/hr .[id number] AYLA Administration Morphine Sulfate 2 mg 04/09/21 20:29 04/09/21 23:16 Morphine 4 Mg/Ml Sdv 1 Ml IVP 2 mg Q4H PRN Administration SEVERE PAIN Oxycodone/Acetaminophen 1 tab 04/09/21 20:29 04/10/21 12:22 Oxycodone-Apap 5-325 Mg Tablet PO 1 tab Q4H PRN Administration SEVERE PAIN PFSH Acute PFSH: Medical History (Updated 04/10/21 @ 14:33 by Omega Mike MD) Acquired hypothyroidism Anemia Bilateral deafness CAD (coronary artery disease) COPD (chronic obstructive pulmonary disease) Essential hypertension Folic acid deficiency GERD (gastroesophageal reflux disease) Hyperlipidemia Paranoid schizophrenia Vitamin D deficiency Surgical History H/O total mastectomy of left breast Status post cholecystectomy Social History Smoking and tobacco status: current every day smoker Vitals/I&O/Wt Last Vital Signs Temp 98.9 F 04/10/21 16:00 Pulse 68 04/10/21 16:00 Resp 16 04/10/21 16:00 BP 119/78 04/10/21 16:00 Pulse Ox 95 04/10/21 16:00 04/10/21 04/10/21 04/10/21 06:59 14:59 22:59 Intake Total 1050 / 1050 1811.667 / 1811.667 238.333 / 2050.000 Output Total 400 / 400 Balance 650 / 650 1811.667 / 1811.667 238.333 / 2050.000 Weight last 48 hrs Weight 149 lb 12.8 oz Physical Exam Narrative: EXAM NARRATIVE: The patient is a thin elderly female supine in bed. She is deaf does try to read lips. She is unable to effectively communicate at this time. Her left lower extremity is wrapped in a pillow for a brace. She will not show me any purposeful motor function in the left lower extremity She has a palpable left dorsalis pedis pulse. Urinary Catheter Management^: Velázquez: Cath Placed During This Visit: yes Reason for Continuing Indwelling Catheter: Required Immobilization for Trauma or Surgery or Anesthesia Urinary Catheter Date of Insertion: 04/09/21 Urinary Catheter Time of Insertion: 17:16 Data Micro: Micro: Microbiology 04/09/21 16:47 Blood Culture - Pr eliminary Blood Gram Negative R ods 04/09/21 16:40 Blood Culture - Pr eliminary Blood Gram Negative R ods Imaging^: Xray Ortho: My impression: 2 views of the left femur are reviewed from our emergency room yesterday. The patient has a slightly comminuted oblique distal femoral supracondylar fracture. A&P Assessment and plan (1) Femur fracture, left: Patient has displaced left supracondylar femur fracture. She is post previously amatory per her report. I certainly would suggest surgical stabilization to allow her to regain some degree of ambulatory status and obtain some pain control. 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 Have been unable to reach them tonight. We will try to make connection with them tomorrow to discuss I recommended surgical stabilization. Status: Acute Coding Level of Care Code Acute Metal Off Bearer for [facility] Diagnoses Femur fracture, left S72.92XA
[2021-04-10] MEDS: oxybutynin 5 mg Tablet PO (18:32)
[2021-04-10] MEDS: divalproex ER 250 mg Tablet (24H) PO (18:32)
[2021-04-10] MEDS: cefTRIAXone 1,000 MG in sodium chloride 0.9% (plus) 50 ML 100 MG IV (21:20)
[2021-04-10] MEDS: levothyroxine 25 mcg Tablet PO (21:21)
[2021-04-10] MEDS: atorvastatin 40 mg Tablet 20 MG PO (21:21)
[2021-04-10] MEDS: enoxaparin 40 mg/0.4 mL Syringe SUBCUT (21:21)
[2021-04-11] VITALS (16 sets, daily range): BP systolic 123–181; BP diastolic 48–78; PULSE 59–96; RESP 16–20; TEMP 36.3–37.9; O2SAT 91–100
--- NOTE | 2021-04-11 | SCC_ITS ---
Procedure Done: Open reduction internal fixation with open reduction internal fixation left supracondylar with intramedullary device femur 120.0 seconds of fluoroscopic guidance, for a cumulative dose of 8.72 mGy, was provided to Dr. Gongora by the radiology department. C-arm images of the LEFT femur were saved for the patient's permanent record. [facility]
--- NOTE | 2021-04-11 | XR_ITS ---
WS: [id number] Left femur and thigh, C-arm fluoroscopy, 04/11/2021 Clinical Data: ORIF FEMUR, GAMMA nail. Comparison: Left thigh and femur, 04/09/2021 Findings: A long intramedullary carlos is been inserted into the femur. It is fixed with 4 distal orthopedic screw s. Proximal screws also fix the carlos. XR/XR femur LT min 2V* [id number] Impression: Internal fixation of distal left femoral fracture.
[2021-04-11 02:51] LABS: Basophils # 0.1 10^3/uL (0.0-0.1); Basophils % 0.4 %; Eosinophils # 0.1 10^3/uL (0.0-0.8); Eosinophils % 0.3 %; Hematocrit 27.8 % (37.0-47.0); Hemoglobin 9.4 g/dL (11.5-15.3); Lymphocytes # 1.1 10^3/uL (0.8-4.8); Lymphocytes % 4.3 %; Mean Corpuscular HGB Conc 33.8 g/dL (30.0-36.0); Mean Corpuscular Hemoglobin 31.5 pg (28.0-34.0); Mean Corpuscular Volume 93.3 fL (81-99); Mean Platelet Volume 11.1 fL (7.4-10.4); Monocytes # 1.4 10^3/uL (0.2-0.9); Monocytes % 5.4 %; Neutrophils # 21.64 10^3/uL (1.8-7.7); Neutrophils % 83.3 %; Nucleated Red Blood Cells % 0 %; Platelet Count 247 10^3/cmm (130-400); Red Blood Count 2.98 10^6/uL (4.1-5.3); Red Cell Distribution Width 14.3 % (12.1-15.1)
[2021-04-11 03:01] LABS: Alanine Aminotransferase 41 U/L (0-33); Albumin Level 2.2 g/dL (3.5-5.2); Alkaline Phosphatase 247 IU/L (35-105); Anion Gap 14.1 (5-19); Aspartate Amino Transferase 39 U/L (0-32); Blood Urea Nitrogen 39 mg/dL (8-23); Calcium 7.7 mg/dL (8.5-10.5); Carbon Dioxide 19 mmol/L (22-29); Chloride 104 mmol/L (98-107); Globulin 2.5 g/dL (1.3-4.6); Glucose 108 mg/dL (65-115); Osmolality Calculated 286 mOsm/kg (285-295); Potassium 4.1 mmol/L (3.5-5.1); Sodium 133 mmol/L (136-145); Total Bilirubin 0.4 mg/dL (0.15-1.2); Total Protein 4.7 g/dL (6.6-8.7)
[2021-04-11 03:06] LABS: Procalcitonin 0.76 ng/mL (0-0.5)
[2021-04-11 03:34] LABS: Slide Review Slide Review Perform
--- NOTE | 2021-04-11 08:18 | ANES.PREANE2 ---
Pre-Anesthetic Assessment Pre-Anesthetic Assessment: Height/Weight: Height 1.7 m Weight 67.948 kg Temp Pulse Resp BP Pulse Ox 98.4 F 66 20 H 149/61 96 04/11/21 07:49 04/11/21 07:49 04/11/21 07:49 04/11/21 07:49 04/11/21 07:49 Proposed Procedure: Operation Date: 04/11/21 16:15 Proposed Procedures p ORIF Femur(Left) - Neal Gongora MD Was Beta Audrey taken within 24 hours: N/A Was Clonidine taken within 24 hours: N/A Social: Social History: No alcohol and No tobacco Exam: Pre-Anes Outpt Exam: alert, oriented x 3, clear to auscultation bilaterally and regular rate & rhythm Airway: Submandibular: WNL Cervical ROM: WNL MP: 2 Dentition: False CV/HEM: CV/HEM: Afib, Anemia, CAD, HTN and AK : : Chronic renal Insufficiency GI: GI: GERD Metabolic: Metabolic: Thyroid Comments: hypokalemia Neuropsych: Comments: Schizo Anesthetic Plan: ASA status: 3 Anesthesia: General Risk of > 500 ml blood loss (7ml/kg in children): No Meds/Allergies Current Medications: Current Medications Generic Name Dose Route Start Last Admin Trade Name Freq PRN Reason Stop Dose Admin Amiodarone HCl 200 mg 04/11/21 06:00 04/11/21 05:30 Amiodarone 200 M g Tablet PO Not Given DAILY@06 [facility] Aspirin 81 mg 04/11/21 06:00 04/11/21 05:29 Aspirin 81 Mg Ec Tablet PO Not Given DAILY@06 [facility] Atorvastatin Calci um 20 mg 04/10/21 21:00 04/10/21 21:21 Atorvastatin 40 Mg Tablet PO 20 mg DAILY@21 [facility] Administration Divalproex Sodium 250 mg 04/10/21 18:00 04/11/21 05:30 Divalproex Er 25 0 Mg Tablet (24h) PO Not Given BID@,18 [facility] Enoxaparin Sodium 40 mg 04/09/21 20:30 04/10/21 21:21 Enoxaparin 40 Mg /0.4 Ml Syringe SUBCUT 40 mg Q24H [facility] Administration Ferrous Sulfate 325 mg 04/11/21 06:00 04/11/21 05:30 Ferrous Sulfate Ec 325 Mg Tablet PO Not Given DAILY@06 [facility] Fluoxetine HCl 20 mg 04/11/21 06:00 04/11/21 05:30 Fluoxetine 20 Mg Capsule PO Not Given DAILY@06 [facility] Ceftriaxone Sodium 1,000 mg/ 50 mls @ 100 mls/ hr 04/10/21 20:00 04/10/21 22:02 Sodium Chloride IV Infused Q24H [facility] Infusion Protocol Sodium Chloride 1,000 mls @ 75 ml s/hr 04/10/21 13:15 04/11/21 03:56 Sodium Chloride 0.9% IV 75 mls/hr .[id number] [facility] Infusion Levothyroxine Sodi um 25 mcg 04/10/21 21:00 04/10/21 21:21 Levothyroxine 25 Mcg Tablet PO 25 mcg DAILY@21 [facility] Administration Morphine Sulfate 2 mg 04/09/21 20:29 04/09/21 23:16 Morphine 4 Mg/Ml Sdv 1 Ml IVP 2 mg Q4H PRN Administration SEVERE PAIN Non-Formulary Medi cation 1 tab 04/10/21 18:00 04/11/21 05:30 Calcium Carbonat e-Vitamin D3 [Oyst er Shell + D3] PO Not Given BID@,18 [facility] Non-Formulary Medi cation 1 inh 04/11/21 06:00 04/11/21 05:30 Fluticasone Furo ate-Vilanterol [Br eo Ellipta] INHALATION Not Given DAILY@06 [facility] Oxybutynin Chlorid e 5 mg 04/10/21 18:00 04/11/21 05:30 Oxybutynin 5 Mg Tablet PO Not Given BID@,18 [facility] Oxycodone/Acetamin ophen 1 tab 04/09/21 20:29 04/10/21 12:22 Oxycodone-Apap 5 -325 Mg Tablet PO 1 tab Q4H PRN Administration SEVERE PAIN Pantoprazole Sodiu m 40 mg 04/11/21 06:00 04/11/21 05:[address] 40 Mg Tablet PO Not Given DAILY@06 [facility] PFSH Anesthesia PFSH: Medical History (Updated 04/10/21 @ 14:33 by Omega Mike MD) Acquired hypothyroidism Anemia Bilateral deafness CAD (coronary artery disease) COPD (chronic obstructive pulmonary disease) Essential hypertension Folic acid deficiency GERD (gastroesophageal reflux disease) Hyperlipidemia Paranoid schizophrenia Vitamin D deficiency Surgical History H/O total mastectomy of left breast Status post cholecystectomy Social History Smoking and tobacco status: current every day smoker Data Anesthesia CBC & Chem 7: 04/11/21 02:18 04/11/21 02:18 Other Labs: Laboratory Results - last 48 hr 04/09/21 04/09/21 04/09/21 15:25 15:25 15:25 WBC 30.3 H* RBC 3.33 L Hgb 10.7 L Hct 31.0 L MCV 93.1 MCH 32.1 MCHC 34.5 RDW 13.6 Plt Count 220 MPV 10.7 H Neut % (Auto) 82.1 Lymph % (Auto) 2.0 [place] % (Auto) 6.9 Eos % (Auto) 0.1 Baso % (Auto) 0.1 Neut # (Auto) 24.88 H Lymph # (Auto) 0.6 L [place] # (Auto) 2.1 H Eos # (Auto) 0.0 Baso # (Auto) 0.0 Nucleated RBC % (auto) 0 Nucleated RBCs # 0.0 Sodium 127 L Potassium 3.3 L Chloride 91 L Carbon Dioxide 23 Anion Gap 16.3 BUN 29 H Creatinine 1.7 H GFR Calculation Not Reportable Glucose 78 Calculated Osmolality 269 L Lactic Acid Calcium 8.4 L Total Bilirubin 0.5 AST 56 H ALT 53 H Alkaline Phosphatase 175 H Troponin T Baseline 22 H Troponin T 120 Minute Delta Troponin T Troponin T Hi Sens 6Hr Troponin T Hi Sens 6Hr Delta Total Protein 5.2 L Albumin 2.7 L Globulin 2.5 Procalcitonin Urine Color Urine Appearance Urine pH Ur Specific [place] Urine Protein Urine Glucose (UA) Urine Ketones Urine Blood Urine Nitrate Urine Bilirubin Urine Urobilinogen Ur Leukocyte Esterase Urine RBC Urine WBC Ur Squamous Epith Cells Amorphous Sediment Urine Bacteria SARS-CoV-2 Ag (Rapid) Blood Type Rho(D) Type Antibody Screen Crossmatch 04/09/21 04/09/21 04/09/21 15:30 16:40 17:07 WBC RBC Hgb Hct MCV MCH MCHC RDW Plt Count MPV Neut % (Auto) Lymph % (Auto) [place] % (Auto) Eos % (Auto) Baso % (Auto) Neut # (Auto) Lymph # (Auto) [place] # (Auto) Eos # (Auto) Baso # (Auto) Nucleated RBC % (auto) Nucleated RBCs # Sodium Potassium Chloride Carbon Dioxide Anion Gap BUN Creatinine GFR Calculation Glucose Calculated Osmolality Lactic Acid 1.1 Calcium Total Bilirubin AST ALT Alkaline Phosphatase Troponin T Baseline Troponin T 120 Minute Delta Troponin T Troponin T Hi Sens 6Hr Troponin T Hi Sens 6Hr Delta Total Protein Albumin Globulin Procalcitonin Urine Color [place] Urine Appearance Cloudy Urine pH 5 Ur Specific [place] 1.010 Urine Protein 1+ H Urine Glucose (UA) Norm Urine Ketones Negative Urine Blood 3+ H Urine Nitrate Negative Urine Bilirubin Neg Urine Urobilinogen 1 H Ur Leukocyte Esterase 2+ H Urine RBC 5-10 H Urine WBC >100 H Ur Squamous Epith Cells None Amorphous Sediment Not Reportable Urine Bacteria 3+ H SARS-CoV-2 Ag (Rapid) Blood Type O Positive Rho(D) Type Positive / 4+ Antibody Screen Negative Crossmatch See Detail 04/09/21 04/09/21 04/09/21 17:39 20:50 21:34 WBC RBC Hgb Hct MCV MCH MCHC RDW Plt Count MPV Neut % (Auto) Lymph % (Auto) [place] % (Auto) Eos % (Auto) Baso % (Auto) Neut # (Auto) Lymph # (Auto) [place] # (Auto) Eos # (Auto) Baso # (Auto) Nucleated RBC % (auto) Nucleated RBCs # Sodium Potassium Chloride Carbon Dioxide Anion Gap BUN Creatinine GFR Calculation Glucose Calculated Osmolality Lactic Acid Calcium Total Bilirubin AST ALT Alkaline Phosphatase Troponin T Baseline Troponin T 120 Minute 19.07 H Delta Troponin T -2.93 L Troponin T Hi Sens 6Hr 19.07 H Troponin T Hi Sens 6Hr Delta -2.93 L Total Protein Albumin Globulin Procalcitonin Urine Color Urine Appearance Urine pH Ur Specific [place] Urine Protein Urine Glucose (UA) Urine Ketones Urine Blood Urine Nitrate Urine Bilirubin Urine Urobilinogen Ur Leukocyte Esterase Urine RBC Urine WBC Ur Squamous Epith Cells Amorphous Sediment Urine Bacteria SARS-CoV-2 Ag (Rapid) Negative Blood Type Rho(D) Type Antibody Screen Crossmatch 04/10/21 04/10/21 04/11/21 05:30 05:30 02:18 WBC 29.9 H 26.0 H RBC 2.97 L 2.98 L Hgb 9.4 L 9.4 L Hct 27.8 L 27.8 L MCV 93.6 93.3 MCH 31.6 31.5 MCHC 33.8 33.8 RDW 13.9 14.3 Plt Count 205 247 MPV 11.3 H 11.1 H Neut % (Auto) 85.4 83.3 Lymph % (Auto) 1.7 4.3 [place] % (Auto) 6.7 5.4 Eos % (Auto) 0.1 0.3 Baso % (Auto) 0.1 0.4 Neut # (Auto) 25.54 H 21.64 H Lymph # (Auto) 0.5 L 1.1 [place] # (Auto) 2.0 H 1.4 H Eos # (Auto) 0.0 0.1 Baso # (Auto) 0.0 0.1 Nucleated RBC % (auto) 0 0 Nucleated RBCs # 0.0 0.0 Sodium 128 L Potassium 2.7 L* Chloride 100 Carbon Dioxide 17 L Anion Gap 13.7 BUN 30 H Creatinine 1.8 H GFR Calculation Not Reportable Glucose 41 L Calculated Osmolality 269 L Lactic Acid Calcium 7.6 L Total Bilirubin 0.5 AST 46 H ALT 45 H Alkaline Phosphatase 157 H Troponin T Baseline Troponin T 120 Minute Delta Troponin T Troponin T Hi Sens 6Hr Troponin T Hi Sens 6Hr Delta Total Protein 4.5 L Albumin 2.3 L Globulin 2.2 Procalcitonin Urine Color Urine Appearance Urine pH Ur Specific [place] Urine Protein Urine Glucose (UA) Urine Ketones Urine Blood Urine Nitrate Urine Bilirubin Urine Urobilinogen Ur Leukocyte Esterase Urine RBC Urine WBC Ur Squamous Epith Cells Amorphous Sediment Urine Bacteria SARS-CoV-2 Ag (Rapid) Blood Type Rho(D) Type Antibody Screen Crossmatch 04/11/21 02:18 WBC RBC Hgb Hct MCV MCH MCHC RDW Plt Count MPV Neut % (Auto) Lymph % (Auto) [place] % (Auto) Eos % (Auto) Baso % (Auto) Neut # (Auto) Lymph # (Auto) [place] # (Auto) Eos # (Auto) Baso # (Auto) Nucleated RBC % (auto) Nucleated RBCs # Sodium 133 L Potassium 4.1 Chloride 104 Carbon Dioxide 19 L Anion Gap 14.1 BUN 39 H Creatinine 2.1 H GFR Calculation Not Reportable Glucose 108 Calculated Osmolality 286 Lactic Acid Calcium 7.7 L Total Bilirubin 0.4 AST 39 H ALT 41 H Alkaline Phosphatase 247 H Troponin T Baseline Troponin T 120 Minute Delta Troponin T Troponin T Hi Sens 6Hr Troponin T Hi Sens 6Hr Delta Total Protein 4.7 L Albumin 2.2 L Globulin 2.5 Procalcitonin 0.76 H Urine Color Urine Appearance Urine pH Ur Specific [place] Urine Protein Urine Glucose (UA) Urine Ketones Urine Blood Urine Nitrate Urine Bilirubin Urine Urobilinogen Ur Leukocyte Esterase Urine RBC Urine WBC Ur Squamous Epith Cells Amorphous Sediment Urine Bacteria SARS-CoV-2 Ag (Rapid) Blood Type Rho(D) Type Antibody Screen Crossmatch Micro: Microbiology 04/09/21 16:47 Blood Culture - Preliminary Blood Gram Negative Rods 04/09/21 16:40 Blood Culture - Preliminary Blood Gram Negative Rods Cardiac Studies: No Data to Display
--- NOTE | 2021-04-11 11:14 | PM.OP ---
Operative Report Date of procedure: April 11, 2021 Pre-op Diagnosis: Left supracondylar femur fracture Post-op diagnosis: same Post-op Findings: Same Procedure Done: Open reduction internal fixation with open reduction internal fixation left supracondylar with intramedullary device femur Implants: Chiara SCN [id number] Pathology: none sent Surgeon: Neal Gongora Anesthesia: General Estimated blood loss (mL): 100 Complications: None Findings: Patient had a comminuted left so the patient had a comminuted left supracondylar femur fracture at the metaphyseal diaphyseal junction Condition: stable Disposition: PACU Procedure: The patient was taken to the operating room and given a spinal anesthesia. She is given 2 g of Ancef. She is prepped and draped the supine position with her left leg exposed a timeout was performed. A 10 cm long incision incision was made over the anterior knee and the knee entered through a medial parapatellar approach. The patella could be displaced laterally. With traction across the femur and a bone hook applied along the lateral distal fragment cortex of the femur could be brought and maintained out to length. A guidepin was driven from a point just anterior to the intercondylar notch proximally into the proximal fragment. Over this was passed the proximal reamer. A ball-tipped guidepin was passed and sequential reaming was performed up of the proximal femur up to a 14.5 mm reamer. Length of the pin buried in the femur was identified and found to be 360 mm. A 13 x360 mm diameter nail was chosen and passed down the canal with minimal difficulty. Working through the incision to lateral toe medial bolts were placed in the proximal and distal screws. Anterior lateral and posterior lateral directed screw were placed to the central holes with a modest purchase. The targeting guide was then placed and 2 lateral to medial screws placed. Wounds were irrigated with saline. The 2 lateral openings used to place proximal locking screws and 2 medial openings used to place knots were closed with deep 0 Vicryl. The parapatellar incision was closed with a running 1 Stratafix, subcutaneous fat with 2-0 Stratafix and the skin was closed with a running 3 oh Stratafix. Incisions were covered with Xeroflo gauze 4 x 4's ABD pads. Her leg was wrapped in a compressive web roll and Raj wrap dressing and placed in a knee immobilizer. She was taken recovery in stable condition.
[2021-04-11] MEDS: sodium chloride 0.9% 1,000 ML 75 ML IV (15:35)
[2021-04-11] MEDS: HYDROcodone-acetaminophen 5-325 mg Tablet 1 TAB PO (15:36)
--- NOTE | 2021-04-11 17:05 | ANE.PACU2 ---
Inpatient post-anesthesia follow up: Airway intact: Yes Vital signs: Temperature 98.9 F Pulse Rate [Monito r] 71 Pulse Rate 82 Respiratory Rate 18 Blood Pressure [Ri ght Arm] 121/67 Blood Pressure 126/70 Pulse Oximetry 96 Oxygen Delivery Me thod [ Nasal Cannula Current Rate & Del yanci] Oxygen Delivery Me thod Nasal Cannula Oxygen Flow Rate [ Current Rate 3.5 & Delivery] Oxygen Flow Rate 2 Fraction of Inspir ed Oxygen Hydration adequate: Yes Nausea and vomiting: No Pain level: 2
[2021-04-11] MEDS: cefTRIAXone 1,000 MG in sodium chloride 0.9% (plus) 50 ML 100 MG IV (20:04)
[2021-04-11] MEDS: sennosides-docusate Tablet 2 TAB PO (20:05)
[2021-04-11] MEDS: mupirocin oint 22 gm 1 APPLIC NASAL (20:06)
[2021-04-11] MEDS: divalproex ER 250 mg Tablet (24H) PO (20:06)
[2021-04-11] MEDS: oxybutynin 5 mg Tablet PO (20:06)
[2021-04-11] MEDS: chlorhexidine gluconate 0.12% Btl 473 mL 30 ML MUCOUS MEM (20:07)
[2021-04-11] MEDS: levothyroxine 25 mcg Tablet PO (20:12)
[2021-04-11] MEDS: atorvastatin 40 mg Tablet 20 MG PO (20:13)
--- NOTE | 2021-04-11 20:49 | PM.PN ---
Subjective Subjective: Interval history: The patient was seen s/p her L. Comminuted supracondylar femur fracture s/p ORIF w/ an intramedullary device in the femur. The patient, according to the nursing staff, has hearing loss and can read lips. However on speaking to the patient, she is quite difficult to understand, and it is not clear that she understands what is being said to her. Consequently a review of systems is difficult to acquire. Vitals/I&O/Wt Last Vital Signs Temp 100.3 F H 04/11/21 20:00 Pulse 87 04/11/21 20:00 Resp 16 04/11/21 20:00 BP 169/75 04/11/21 20:00 Pulse Ox 99 04/11/21 20:00 04/11/21 04/11/21 04/11/21 06:59 14:59 22:59 Intake Total 700 / 2920.000 350 / 350 Output Total 400 / 400 200 / 200 150 / 350 Balance 300 / 2520.000 150 / 150 -150 / 0 Weight last 48 hrs Weight 67.948 kg Physical Exam Const: COMMON NORMALS: alert GENERAL APPEARANCE: comfortable ORIENTATION/CONSCIOUSNESS: Yes awake HENMT: COMMON NORMALS: normocephalic, atraumatic, external ears normal and Normal external nose present HEAD & SCALP: normocephalic and atraumatic FACE & SINUS: normal facial exam NOSE: Normal external nose present GENERAL EAR: hearing grossly impaired EXTERNAL EAR: Yes external ears normal MOUTH: Normal oral and palatal mucosa present Eye: COMMON NORMALS: Equal, round and reactive pupils present and conjunctivae normal CONJUNCTIVA: Yes conjunctivae normal PUPIL: Yes Equal, round and reactive pupils present EOM: No EOM abnormal Resp: COMMON NORMALS: clear to auscultation bilaterally (On anterior auscultation) AUSCULTATION: clear to auscultation bilaterally (On anterior auscultation), no rales, no rhonchi and no wheezes Cardio: COMMON NORMALS: regular rate and regular rhythm RATE: regular rate RHYTHM: regular rhythm HEART SOUNDS: no click, no gallops, no murmurs and no rubs GI: COMMON NORMALS: Soft to palpation and No hepatosplenomegaly present AUSCULTATION: Yes normoactive bowel sounds PALPATION: Yes Soft to palpation, No Firmness to palpation present (GI), No Tenderness to palpation present (GI), No Guarding due to palpation present (GI), No Rigid due to palpation, Yes No hepatosplenomegaly present and No Rebound tenderness present : BLADDER/KIDNEY EXAM: Yes catheter in place Catheter type (Female): urethral Extremity: GENERAL: No clubbing, No cyanosis and No edema LEFT LOWER EXTREMITY: Yes knee joint (wrapped) Neuro: SENSORIUM/ORIENTATION: Yes alert CRANIAL NERVES: Yes CN normal except as noted SPEECH: abnormal speech Details: garbled Psych: ATTITUDE: Yes calm ACTIVITY/MOTOR BEHAVIOR: Yes appropriate eye contact MOOD & AFFECT: Yes euthymic mood Skin: COMMON NORMALS: no rashes or lesions noted GENERAL SKIN EXAM: no rashes or lesions noted Urinary Catheter Management^: Velázquez: Cath Placed During This Visit: yes Reason for Continuing Indwelling Catheter: Required Immobilization for Trauma or Surgery or Anesthesia Urinary Catheter Date of Insertion: 04/09/21 Urinary Catheter Time of Insertion: 17:16 Data : 04/11/21 02:18 04/11/21 02:18 Micro: Microbiology 04/09/21 16:47 Blood Culture - Preliminary Blood Gram Negative Rods 04/09/21 16:40 Blood Culture - Preliminary Blood Gram Negative Rods 04/09/21 17:07 Urine Culture - Preliminary Urine,Clean Catch Gram Negative Rods A&P Assessment and plan (1) Supracondylar fracture of left femur: Status: Acute (2) Gram-negative bacteremia: Status: Acute (3) UTI (urinary tract infection): Status: Acute (4) KEVYN (acute kidney injury): Status: Acute (5) Transaminitis: Status: Acute (6) Hyponatremia: Status: Acute (7) Hypokalemia: Status: Acute (8) Anemia: Status: Acute Qualifiers: Anemia type: unspecified type Qualified Code(s): D64.9 - Anemia, unspecified (9) COPD (chronic obstructive pulmonary disease): Status: Acute Qualifiers: COPD type: unspecified COPD Qualified Code(s): J44.9 - Chronic obstructive pulmonary disease, unspecified (10) Essential hypertension: Status: Acute (11) Acquired hypothyroidism: Status: Acute (12) Paranoid schizophrenia: Status: Chronic Ms. Vu is a 75yo woman w/ Afib not on Coumadin, Paranoid schizophrenia? who was brought to the ED on 04/10/2021 after a fall at her [facility] unit. In the ED, the patient sustained a L. Comminuted supracondylar femur fracture. She also had an abnormally high leukocytosis of 30. Her UA was concerning for a UTI, and her blood cultures were positive for GNR bacteremia. She is s/p ORIF w/ an intramedullary device in the femur on 04/11. #L. Comminuted supracondylar femur fracture s/p ORIF w/ an intramedullary device in the femur -Pain mgmt & post-op DVT ppx per General Surgery # Anemia - F/u iron studies & FOBT #Afib not on Coumadin - Aspirin held. #UTI #GNR bacteremia #KEVYN - likely pre-renal # Hyponatremia- likely hypovolemia # Hypokalemia - Increased Ceftriaxone to 2g. F/u Repeat BCx. Continue IVF. Reassess renal function in the AM # Tranaminitis - Likely due to ischemia due to volume loss. If unimproved w/ IVF, will initiate further workup. #Acquired hypothyroidism - Continue home med. #Paranoid Schizophrenia, Anxiety, Mood d/o - Her Depakote dosing is more remniscent of Dementia. Continue Haldol & Prozac. #GERD - On pantoprazole # Allergic rhinitis - On Montelukast #COPD - On Breo-Ellipta. #Hold oxybutynin. It may not be helping the UTIs. Attestations Medical Necessity Statement*: The patient requires continuous hospitalization due to gram-negative bacteremia, pending speciation and sensitivities, UTI, worsening KEVYN, worsening hyponatremia, worsening transaminitis. Coding Level of Care Code Acute [facility] for [facility] Fwd Exam Comprehensive Diagnoses Supracondylar fracture of left femur S72.452A Gram-negative bacteremia R78.81 UTI (urinary tract infection) N39.0 KEVYN (acute kidney injury) N17.9 Transaminitis R74.01 Hyponatremia E87.1 Hypokalemia E87.6 Anemia D64.9 Anemia type: unspecified type COPD (chronic obstructive pulmonary disease) J44.9 COPD type: unspecified COPD Essential hypertension I10 Acquired hypothyroidism E03.9 Paranoid schizophrenia F20.0
--- NOTE | 2021-04-11 21:10 | CTR_ITS ---
PROCEDURE INFORMATION: Exam: CT Abdomen And Pelvis Without Contrast Exam date and time: 04/11/2021 9:10 PM Age: 75 years old Clinical indication: Abdominal pain; Generalized; Additional info: UTI, gram negative bacteremia TECHNIQUE: Imaging protocol: Computed tomography of the abdomen and pelvis without contrast. Radiation optimization: All CT scans at this facility use at least one of these dose optimization techniques: automated exposure control; mA and/or kV adjustment per patient size (includes targeted exams where dose is matched to clinical indication); or iterative reconstruction. COMPARISON: CT chest abd pel wo con 03/20/2020 5:47 PM RADIATION DOSE METRICS: Total DLP (mGy-cm): 1207.36 FINDINGS: Limitations: Examinations performed without intravenous contrast have limited ability to detect many conditions. Lungs: Mild atelectasis at bilateral lung bases. Small bilateral pleural effusions (left is larger). These are new since prior study. Liver: Unremarkable. Gallbladder and bile ducts: The gallbladder is not identified and is presumed surgically absent. Pancreas: Unremarkable. Spleen: Unremarkable. Adrenal glands: Unremarkable. Kidneys and ureters: Striated nephrogram pattern is present bilaterally. This is consistent with pyelonephritis. Acute tubular necrosis is an alternate consideration. The presence or absence of striated nephrogram cannot be assessed on the prior study due to lack of contrast. Stomach and bowel: No bowel obstruction identified. Diverticulosis of the sigmoid colon without evidence of diverticulitis. Appendix: A normal-appearing appendix is seen in the right lower quadrant. Intraperitoneal space: No free intraperitoneal air identified. No free intraperitoneal fluid identified. Vasculature: No abdominal aortic aneurysm. Lymph nodes: Unremarkable. Urinary bladder: Velázquez catheter is noted in the bladder. Small amount of gas in the bladder. This may be related to the presence of the catheter. Infection is an alternate possibility. Reproductive: Unremarkable as visualized. Bones/joints: Healed fractures of the right 5th and right 6th ribs anteriorly. Chronic fracture of the right sacrum, similar to prior study. Abnormal contour of the right superior and right inferior pubic rami, consistent with remote trauma, similar to prior study. Metallic hardware noted in the left proximal femur. Soft tissues: Marked subcutaneous edema diffusely, especially prominent in the left flank region. This is new. CT/CT abdomen pelvis wo con [id number] IMPRESSION: 1. Striated nephrogram pattern is present bilaterally. This is consistent with pyelonephritis. Acute tubular necrosis is an alternate consideration. 2. Velázquez catheter is noted in the bladder. Small amount of gas in the bladder. This may be related to the presence of the catheter. Infection is an alternate possibility. 3. Small bilateral pleural effusions (left is larger). These are new since prior study. 4. Marked subcutaneous edema diffusely, especially prominent in the left flank region. This is new. 5. Additional, nonemergent findings as above. Radiation Dose CTDIVOL = (mGy): DLP = 1207.36 (mGy-cm)
[2021-04-11] MEDS: sodium chloride 0.9% 1,000 ML 100 ML IV (21:28)
[2021-04-11] MEDS: enoxaparin 40 mg/0.4 mL Syringe SUBCUT (22:35)
--- NOTE | 2021-04-12 01:26 | PC.NURSE ---
attempted to admin Chlorhexadine mouth wash to patient with with written instructions to swish and spit . Pt was unable to understand this, and simply swallowed the mouth wash. I was also witness to patient doing same this with dayshift nurse on a prior administration.
[2021-04-12 02:45] VITALS: BP 139/73
[2021-04-12 03:56] VITALS: BP 134/66; PULSE 65; RESP 16; TEMP 37.2; O2SAT 96
[2021-04-12] MEDS: ferrous sulfate EC 325 mg Tablet PO (06:15)
[2021-04-12] MEDS: amiodarone 200 mg Tablet PO (06:15)
[2021-04-12] MEDS: pantoprazole DR 40 mg Tablet PO (06:15)
[2021-04-12] MEDS: fluoxetine 20 mg Capsule PO (06:15)
[2021-04-12] MEDS: oxybutynin 5 mg Tablet PO (06:15)
[2021-04-12] MEDS: divalproex ER 250 mg Tablet (24H) PO ×2 (06:17→18:37)
[2021-04-12 06:32] LABS: Hematocrit 23.6 % (37.0-47.0); Hemoglobin 8.2 g/dL (11.5-15.3); Mean Corpuscular HGB Conc 34.7 g/dL (30.0-36.0); Mean Corpuscular Hemoglobin 32.2 pg (28.0-34.0); Mean Corpuscular Volume 92.5 fL (81-99); Mean Platelet Volume 11.4 fL (7.4-10.4); Platelet Count 178 10^3/cmm (130-400); Red Blood Count 2.55 10^6/uL (4.1-5.3); Red Cell Distribution Width 14.8 % (12.1-15.1); White Blood Count 17.1 10^3/uL (4.0-10.0)
[2021-04-12 06:39] LABS: Alanine Aminotransferase 35 U/L (0-33); Albumin Level 2.1 g/dL (3.5-5.2); Alkaline Phosphatase 193 IU/L (35-105); Anion Gap 13.7 (5-19); Aspartate Amino Transferase 37 U/L (0-32); Blood Urea Nitrogen 40 mg/dL (8-23); Calcium 7.6 mg/dL (8.5-10.5); Carbon Dioxide 18 mmol/L (22-29); Chloride 104 mmol/L (98-107); Ferritin 712 ng/mL (15-150); Globulin 2.2 g/dL (1.3-4.6); Glucose 82 mg/dL (65-115); Iron 34 ug/dL (37-145); Osmolality Calculated 283 mOsm/kg (285-295); Percent Saturation 31.4 % (20-50); Potassium 3.7 mmol/L (3.5-5.1); Sodium 132 mmol/L (136-145); Total Bilirubin 0.4 mg/dL (0.15-1.2); Total Iron Binding Capacity 108 mcg/dl; Total Protein 4.3 g/dL (6.6-8.7); Unsaturated Iron Binding 74 ug/dL (112-347)
[2021-04-12 06:40] LABS: Creatinine Clr Calc Pharmacy 35.1557
[2021-04-12 06:48] LABS: Slide Review Slide Review Perform
[2021-04-12 06:51] LABS: Vitamin B12 690 pg/mL (232-1245)
[2021-04-12 06:52] LABS: Absolute Neutrophil 13.7 10^3/cmm (1.4-6.5); Absolute Segmented Neutrophil 10.8 10/cmm (1.6-7.1); Band Neutrophils Absolute 2.9 10^3/cmm (0.0-1.2); Folate Level 5.4 ng/mL (4.8-37.3); Lymphocytes 2 %; Platelet Estimate Normal (Normal); Poikilocytosis 1+; Segmented Neutrophils 63 %; Total Cells Counted 100 (0-100)
[2021-04-12 06:53] LABS: Eosinophils 0 %; Lymphocytes Absolute 0.3 10^3/cmm (1.2-3.4)
[2021-04-12] MEDS: HYDROcodone-acetaminophen 5-325 mg Tablet 1 TAB PO ×2 (08:06→14:15)
[2021-04-12] MEDS: sennosides-docusate Tablet 2 TAB PO ×2 (08:08→18:36)
--- NOTE | 2021-04-12 08:16 | P.PN_ITS ---
Subjective Subjective: Interval history: Patient sitting up in bed eating. To be indicating and signing with caregiver Vitals/I&O/Wt Last Vital Signs Temp 98.9 F 04/12/21 03:56 Pulse 65 04/12/21 03:56 Resp 16 04/12/21 03:56 BP 134/66 04/12/21 03:56 Pulse Ox 96 04/12/21 03:56 04/11/21 04/12/21 04/12/21 22:59 06:59 14:59 Intake Total 692.5 / 1042.5 557.5 / 1600.0 Output Total 150 / 350 350 / 700 Balance 542.5 / 692.5 207.5 / 900.0 Weight last 48 hrs Weight 149 lb 12.8 oz Physical Exam Narrative: EXAM NARRATIVE: Slight staining proximal locking bolt incision. No staining compression dressing. Urinary Catheter Management^: Velázquez: Cath Placed During This Visit: yes Reason for Continuing Indwelling Catheter: Required Immobilization for Trauma or Surgery or Anesthesia Urinary Catheter Date of Insertion: 04/09/21 Urinary Catheter Time of Insertion: 17:16 Data : 04/12/21 05:42 04/12/21 05:42 Micro: Microbiology 04/11/21 21:31 Blood Culture - Preliminary Blood SPECIMEN COLLECTED 04/11/21 21:27 Blood Culture - Preliminary Blood SPECIMEN COLLECTED 04/09/21 16:47 Blood Culture - Preliminary Blood Gram Negative Rods 04/09/21 16:40 Blood Culture - Preliminary Blood Gram Negative Rods 04/09/21 17:07 Urine Culture - Preliminary Urine,Clean Catch Gram Negative Rods A&P Assessment and plan (1) Supracondylar fracture of left femur: Status: Acute (2) Postoperative state: We will try to mobilize with therapy with communication deficits and dementia she may not be a great therapy candidate. Will not be able to discharge back to residential care facility. Likely detention or skilled nursing. Status: Acute Attestations Medical Necessity Statement*: As per medicine. Stable orthopedically for discharge. 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
[2021-04-12] MEDS: mupirocin oint 22 gm 1 APPLIC NASAL ×2 (08:25→17:04)
[2021-04-12] MEDS: cefTRIAXone 2,000 MG in sodium chloride 0.9% (plus) 100 ML 200 MG IV (08:32)
[2021-04-12] MEDS: chlorhexidine gluconate 0.12% Btl 473 mL 30 ML MUCOUS MEM ×4 (08:35→21:54)
--- NOTE | 2021-04-12 10:42 | P.PN_ITS ---
Subjective Subjective: Interval history: Patient was sitting in a chair today, and she worked with therapy according to her nurse as well as the faculty administrator of her nursing facility, Gillian, who has taken care of her for 10 years. According to Gillian, the patient uses sign language, and can talk sometimes at baseline. Today, per Gillian, the patient only complained of pain in her left leg, when working with physical therapy. She also complained of dizziness momentarily, when she was sat up on the bed. The patient endorsed shortness of breath through sign language, but was unable to answer more questions. It was deemed by her caregiver including the nurse, that she was likely exhausted from working with physical therapy and also aided by medications, given that the night before she actually stated that she was full and that she wanted water. Of note, the patient's caregiver, Gillian states that the patient has a long history of smoking cigars and cigarettes, and has a chronic cough that actually is improved from her perspective. Medications: Reviewed: Yes Vitals/I&O/Wt Last Vital Signs Temp 98.9 F 04/12/21 03:56 Pulse 65 04/12/21 03:56 Resp 16 04/12/21 03:56 BP 134/66 04/12/21 03:56 Pulse Ox 96 04/12/21 03:56 04/11/21 04/12/21 04/12/21 22:59 06:59 14:59 Intake Total 692.5 / 1042.5 557.5 / 1600.0 340 / 340 Output Total 150 / 350 350 / 700 Balance 542.5 / 692.5 207.5 / 900.0 340 / 340 Physical Exam Const: COMMON NORMALS: alert GENERAL APPEARANCE: comfortable ORIENTATION/CONSCIOUSNESS: Yes awake HENMT: COMMON NORMALS: normocephalic, atraumatic, external ears normal and Normal external nose present HEAD & SCALP: normocephalic and atraumatic FACE & SINUS: normal facial exam NOSE: Normal external nose present GENERAL EAR: hearing grossly impaired EXTERNAL EAR: Yes external ears normal MOUTH: Normal oral and palatal mucosa present Eye: COMMON NORMALS: Equal, round and reactive pupils present and conjunctivae normal CONJUNCTIVA: Yes conjunctivae normal PUPIL: Yes Equal, round and reactive pupils present EOM: No EOM abnormal Resp: AUSCULTATION: crackles Laterality: bilateral (R. middle & lower lobe, LLL. ), no rales, no rhonchi and no wheezes Cardio: COMMON NORMALS: regular rate and regular rhythm RATE: regular rate RHYTHM: regular rhythm HEART SOUNDS: no click, no gallops, no murmurs and no rubs GI: COMMON NORMALS: Soft to palpation and No hepatosplenomegaly present AUSCULTATION: Yes normoactive bowel sounds PALPATION: Yes Soft to palpation, No Firmness to palpation present (GI), No Tenderness to palpation present (GI), No Guarding due to palpation present (GI), No Rigid due to palpation, Yes No hepatosplenomegaly present and No Rebound tenderness present : BLADDER/KIDNEY EXAM: Yes catheter in place Catheter type (Female): urethral Extremity: GENERAL: No clubbing, No cyanosis and No edema Neuro: SENSORIUM/ORIENTATION: Yes alert CRANIAL NERVES: Yes CN normal except as noted SPEECH: abnormal speech Details: garbled Psych: ATTITUDE: Yes calm ACTIVITY/MOTOR BEHAVIOR: Yes appropriate eye contact MOOD & AFFECT: Yes euthymic mood Skin: COMMON NORMALS: no rashes or lesions noted GENERAL SKIN EXAM: no rashes or lesions noted Urinary Catheter Management^: Velázquez: Cath Placed During This Visit: yes Reason for Continuing Indwelling Catheter: Required Immobilization for Trauma or Surgery or Anesthesia Urinary Catheter Date of Insertion: 04/09/21 Urinary Catheter Time of Insertion: 17:16 Data : 04/12/21 05:42 04/12/21 05:42 Micro: Microbiology 04/09/21 17:07 Urine Culture - Final Urine,Clean Catch Escherichia coli 04/11/21 21:31 Blood Culture - Preliminary Blood SPECIMEN COLLECTED 04/11/21 21:27 Blood Culture - Preliminary Blood SPECIMEN COLLECTED 04/09/21 16:47 Blood Culture - Preliminary Blood Gram Negative Rods 04/09/21 16:40 Blood Culture - Preliminary Blood Gram Negative Rods A&P Assessment and plan (1) Supracondylar fracture of left femur: Status: Acute (2) Gram-negative bacteremia: Status: Acute (3) UTI (urinary tract infection): Status: Acute (4) KEVYN (acute kidney injury): Status: Acute (5) Transaminitis: Status: Acute (6) Hyponatremia: Status: Acute (7) Hypokalemia: Status: Acute (8) Anemia: Status: Acute Qualifiers: Anemia type: unspecified type Qualified Code(s): D64.9 - Anemia, unspecified (9) COPD (chronic obstructive pulmonary disease): Status: Acute Qualifiers: COPD type: unspecified COPD Qualified Code(s): J44.9 - Chronic obstructive pulmonary disease, unspecified (10) Essential hypertension: Status: Acute (11) Acquired hypothyroidism: Status: Acute (12) Paranoid schizophrenia: Status: Chronic Ms. Vu is a 75yo woman w/ Paranoid schizophrenia per Keila [phone], the faculty administrator at her residential facility, [facility], who was brought to the ED on 04/10/2021 after a fall at her Geriatric Dementia unit. In the ED, the patient sustained a L. Comminuted supracondylar femur fracture. She also had an abnormally high leukocytosis of 30. Her UA was concerning for a UTI, and her blood cultures were positive for GNR bacteremia. She is s/p ORIF w/ an intramedullary device in the femur on 04/11. #L. Comminuted supracondylar femur fracture s/p ORIF w/ an intramedullary device in the femur -Pain mgmt & post-op DVT ppx per General Surgery # Anemia - Iron studies do not show iron deficiency. She is on po iron. F/u FOBT - Aspirin held. #Afib; According to Keila, the faculty administrator at her Residential Facility, [facility], the patient has never had any diagnosis of arrhythmia until she presented to the ED on this admission, where the patient was informed that she had EKG. review of the patient's EKGs, showed that the patient did not have A. fib. Per the nurse, the patient has been in normal sinus rhythm since admission. We will remove this diagnosis at this time. #E. coli UTI, Pyelonephritis #E.coli bacteremia #KEVYN - likely pre-renal # Hyponatremia- likely hypovolemia # Hypokalemia - Increased Ceftriaxone to 2g. F/u Repeat BCx. Reassess renal function in the AM. CT abd/pelvis w/o contrast ordered showed b/l pyelonephritis. D/c IVF given crackles in R. middle to lower lobe and LLL. Will get a CXR. #Hold oxybutynin. It may not be helping the UTIs. # Tranaminitis - Maybe due to ischemia due to volume loss. If unimproved w/ IVF, will initiate further workup. #Acquired hypothyroidism - Continue home med. #Paranoid Schizophrenia, Anxiety, Mood d/o - Her Paranoid Schizophrenia was confirmed by Gillian. Continue Haldol & Prozac. #GERD - On pantoprazole # Allergic rhinitis - On Montelukast #COPD - On Breo-Ellipta. Of note, the patient's caregiver, Gillian states that the patient has a long history of smoking cigars and cigarettes, and has a chronic cough that actually is improved from her perspective. Breo-Ellipta not on formulary. Ordered Advair DVT ppx: Mgmt per Orthopedic surgery Attestations Medical Necessity Statement*: Patient is to remain hospitalized due to the E. coli bacteremia, pyelonephritis and UTI, L. femur fracture, as well as to wait for results of blood cultures. Coding Level of Care Code Acute Community Development Director for [facility] Fwd Diagnoses Supracondylar fracture of left femur S72.452A Gram-negative bacteremia R78.81 UTI (urinary tract infection) N39.0 KEVYN (acute kidney injury) N17.9 Transaminitis R74.01 Hyponatremia E87.1 Hypokalemia E87.6 Anemia D64.9 Anemia type: unspecified type COPD (chronic obstructive pulmonary disease) J44.9 COPD type: unspecified COPD Essential hypertension I10 Acquired hypothyroidism E03.9 Paranoid schizophrenia F20.0
[2021-04-12 11:09] LABS: Magnesium 1.9 mg/dL (1.7-2.3); Phosphorus 3.6 mg/dL (2.5-4.5)
--- NOTE | 2021-04-12 12:00 | PC.SOCIAL ---
Pg 2 IMM Explained to Claudy Benson's telecommunications administrator, Keila Sanchez, on Pg 2 IMM. No questions voiced. Provided pt a copy. Signed, dated, & timed a copy & placed in chart.
[2021-04-12 16:46] VITALS: BP 176/72; PULSE 74; RESP 18; TEMP 36.8; O2SAT 92
[2021-04-12 16:59] VITALS: RESP 18; O2SAT 92
[2021-04-12] MEDS: oxyCODONE-APAP 5-325 mg Tablet 1 TAB PO (16:59)
[2021-04-12] MEDS: hyDRALAzine 10 mg Tablet PO (16:59)
[2021-04-12 20:47] VITALS: BP 141/86; PULSE 64; RESP 16; TEMP 36.4; O2SAT 96
[2021-04-12 21:12] VITALS: PULSE 61; RESP 18; O2SAT 94
[2021-04-12] MEDS: atorvastatin 40 mg Tablet 20 MG PO (21:54)
[2021-04-12] MEDS: enoxaparin 40 mg/0.4 mL Syringe SUBCUT (21:54)
[2021-04-12] MEDS: levothyroxine 25 mcg Tablet PO (21:54)
[2021-04-13] VITALS (7 sets, daily range): BP systolic 120–182; BP diastolic 64–78; PULSE 60–99; RESP 16–20; TEMP 36.7–37.2; O2SAT 90–96
--- NOTE | 2021-04-13 02:07 | PC.NURSE ---
incontinent of bladder x 2
[2021-04-13 03:24] LABS: Basophils # 0.1 10^3/uL (0.0-0.1); Basophils % 0.6 %; Eosinophils # 0.3 10^3/uL (0.0-0.8); Eosinophils % 1.6 %; Hematocrit 23.3 % (37.0-47.0); Hemoglobin 7.9 g/dL (11.5-15.3); Lymphocytes # 1.5 10^3/uL (0.8-4.8); Lymphocytes % 9.6 %; Mean Corpuscular HGB Conc 33.9 g/dL (30.0-36.0); Mean Corpuscular Hemoglobin 31.6 pg (28.0-34.0); Mean Corpuscular Volume 93.2 fL (81-99); Mean Platelet Volume 11.2 fL (7.4-10.4); Monocytes # 1.6 10^3/uL (0.2-0.9); Monocytes % 10.4 %; Neutrophils # 9.62 10^3/uL (1.8-7.7); Nucleated Red Blood Cells % 0 %; Platelet Count 186 10^3/cmm (130-400); Red Cell Distribution Width 15.2 % (12.1-15.1); White Blood Count 15.5 10^3/uL (4.0-10.0)
[2021-04-13 03:46] LABS: Alanine Aminotransferase 31 U/L (0-33); Alkaline Phosphatase 219 IU/L (35-105); Anion Gap 11.8 (5-19); Aspartate Amino Transferase 35 U/L (0-32); Blood Urea Nitrogen 37 mg/dL (8-23); Calcium 7.6 mg/dL (8.5-10.5); Carbon Dioxide 19 mmol/L (22-29); Chloride 106 mmol/L (98-107); Globulin 1.8 g/dL (1.3-4.6); Glucose 77 mg/dL (65-115); Osmolality Calculated 283 mOsm/kg (285-295); Potassium 3.8 mmol/L (3.5-5.1); Slide Review Slide Review Perform; Sodium 133 mmol/L (136-145); Total Bilirubin 0.3 mg/dL (0.15-1.2); Total Protein 3.8 g/dL (6.6-8.7)
[2021-04-13 03:47] LABS: Phosphorus 3.7 mg/dL (2.5-4.5)
[2021-04-13 03:51] LABS: Procalcitonin 0.36 ng/mL (0-0.5)
[2021-04-13] MEDS: fluoxetine 20 mg Capsule PO (05:50)
[2021-04-13] MEDS: ferrous sulfate EC 325 mg Tablet PO (05:50)
[2021-04-13] MEDS: pantoprazole DR 40 mg Tablet PO (05:50)
[2021-04-13] MEDS: divalproex ER 250 mg Tablet (24H) PO ×2 (05:50→17:53)
[2021-04-13] MEDS: amiodarone 200 mg Tablet PO (05:50)
--- NOTE | 2021-04-13 08:29 | P.PN_ITS ---
Subjective Subjective: Interval history: No complaints. Tolerating breakfast this morning. Vitals/I&O/Wt Last Vital Signs Temp 98.9 F 04/13/21 08:00 Pulse 64 04/13/21 08:02 Resp 18 04/13/21 08:02 BP 140/78 04/13/21 08:00 Pulse Ox 94 04/13/21 08:02 04/12/21 04/13/21 04/13/21 22:59 06:59 14:59 Intake Total 240 / 1060 220 / 1280 Output Total 0 / 300 Balance 240 / 760 220 / 980 Physical Exam 2 Narrative: EXAM NARRATIVE: Incisions clean left leg. Urinary Catheter Management^: Velázquez: Cath Placed During This Visit: yes, but has since been removed by the nurse Reason for Continuing Indwelling Catheter: Decision to DC Catheter Urinary Catheter Date of Insertion: 04/09/21 Urinary Catheter Time of Insertion: 17:16 Date Urinary Catheter Removed: 04/12/21 Time Urinary Catheter Discontinued: 10:00 Data : 04/13/21 02:53 04/13/21 02:53 Micro: Microbiology 04/11/21 21:31 Blood Culture - Preliminary Blood NEGATIVE TO DATE 04/11/21 21:27 Blood Culture - Preliminary Blood NEGATIVE TO DATE 04/09/21 16:47 Blood Culture - Preliminary Blood Escherichia coli 04/09/21 16:40 Blood Culture - Preliminary Blood Escherichia coli 04/09/21 17:07 Urine Culture - Final Urine,Clean Catch Escherichia coli A&P Assessment and plan (1) Supracondylar fracture of left femur: Status: Acute (2) Postoperative state: Continue to mobilize as tolerated. Awaiting long term placement Status: Acute Attestations Medical Necessity Statement*: Okay for discharge per Ortho. Coding Level of Care Code Acute Amusement Ride Operator for [facility] Fwd Diagnoses Supracondylar fracture of left femur S72.452A Postoperative state Z98.890
--- NOTE | 2021-04-13 09:11 | P.PN_ITS ---
Subjective Subjective: Interval history: Patient was seen sitting in a chair this afternoon. She requested for water to drink, which was easily understood by me, and she drank or fail and handed the cup back. Otherwise she continues to have garbled speech at baseline. She did appear SOB, but she did not appear uncomfortable. Medications: Reviewed: Yes Vitals/I&O/Wt Last Vital Signs Temp 98.9 F 04/13/21 08:00 Pulse 64 04/13/21 08:02 Resp 18 04/13/21 08:02 BP 140/78 04/13/21 08:00 Pulse Ox 94 04/13/21 08:02 04/12/21 04/13/21 04/13/21 22:59 06:59 14:59 Intake Total 240 / 1060 220 / 1280 Output Total 0 / 300 Balance 240 / 760 220 / 980 Physical Exam Const: COMMON NORMALS: alert GENERAL APPEARANCE: comfortable ORIENTATION/CONSCIOUSNESS: Yes awake HENMT: COMMON NORMALS: normocephalic, atraumatic, external ears normal and Normal external nose present HEAD & SCALP: normocephalic and atraumatic FACE & SINUS: normal facial exam NOSE: Normal external nose present GENERAL EAR: hearing grossly impaired EXTERNAL EAR: Yes external ears normal MOUTH: Normal oral and palatal mucosa present Eye: COMMON NORMALS: Equal, round and reactive pupils present and conjunctivae normal CONJUNCTIVA: Yes conjunctivae normal PUPIL: Yes Equal, round and reactive pupils present EOM: No EOM abnormal Resp: AUSCULTATION: crackles Laterality: bilateral (R. middle & lower lobe, LLL. ), no rales, no rhonchi and no wheezes Cardio: COMMON NORMALS: regular rate and regular rhythm RATE: regular rate RHYTHM: regular rhythm HEART SOUNDS: no click, no gallops, no murmurs and no rubs GI: COMMON NORMALS: Soft to palpation and No hepatosplenomegaly present AUSCULTATION: Yes normoactive bowel sounds PALPATION: Yes Soft to palpation, No Firmness to palpation present (GI), No Tenderness to palpation present (GI), No Guarding due to palpation present (GI), No Rigid due to palpation, Yes No hepatosplenomegaly present and No Rebound tenderness present : BLADDER/KIDNEY EXAM: Yes catheter in place Catheter type (Female): urethral Extremity: GENERAL: No clubbing, No cyanosis and No edema Neuro: SENSORIUM/ORIENTATION: Yes alert CRANIAL NERVES: Yes CN normal except as noted SPEECH: abnormal speech Details: garbled Psych: ATTITUDE: Yes calm ACTIVITY/MOTOR BEHAVIOR: Yes appropriate eye contact MOOD & AFFECT: Yes euthymic mood Skin: COMMON NORMALS: no rashes or lesions noted GENERAL SKIN EXAM: no rashes or lesions noted Urinary Catheter Management^: Velázquez: Cath Placed During This Visit: yes, but has since been removed by the nurse Reason for Continuing Indwelling Catheter: Decision to DC Catheter Urinary Catheter Date of Insertion: 04/09/21 Urinary Catheter Time of Insertion: 17:16 Date Urinary Catheter Removed: 04/12/21 Time Urinary Catheter Discontinued: 10:00 Data : 04/13/21 02:53 04/13/21 02:53 Micro: Microbiology 04/11/21 21:31 Blood Culture - Preliminary Blood NEGATIVE TO DATE 04/11/21 21:27 Blood Culture - Preliminary Blood NEGATIVE TO DATE 04/09/21 16:47 Blood Culture - Preliminary Blood Escherichia coli 04/09/21 16:40 Blood Culture - Preliminary Blood Escherichia coli 04/09/21 17:07 Urine Culture - Final Urine,Clean Catch Escherichia coli A&P Assessment and plan (1) Supracondylar fracture of left femur: Status: Acute (2) Gram-negative bacteremia: Status: Acute (3) UTI (urinary tract infection): Status: Acute (4) KEVYN (acute kidney injury): Status: Acute (5) Transaminitis: Status: Acute (6) Hyponatremia: Status: Acute (7) Hypokalemia: Status: Acute (8) Anemia: Status: Acute Qualifiers: Anemia type: unspecified type Qualified Code(s): D64.9 - Anemia, uns pecified (9) COPD (chronic obstructive pulmonary disease): Status: Acute Qualifiers: COPD type: unspecified COPD Qualified Code(s): J44.9 - Chronic obstructive pulmonary disease, unspecified (10) Essential hypertension: Status: Acute (11) Acquired hypothyroidism: Status: Acute (12) Paranoid schizophrenia: Status: Chronic Ms. Vu is a 75yo woman w/ Paranoid schizophrenia per Keila [phone], the cloud systems administrator at her residential facility, [facility], who was brought to the ED on 04/10/2021 after a fall at her Geriatric Dementia unit. In the ED, the patient sustained a L. Comminuted supracondylar femur fracture. She also had an abnormally high leukocytosis of 30. Her UA was concerning for a UTI, and her blood cultures were positive for GNR bacteremia. She is s/p ORIF w/ an intramedullary device in the femur on 04/11. # Vol overload: Although CXR does not show increased pulmonary vascularity, given her physical exam, and the fact that she was wheezing bilaterally, we will give her a dose of Lasix 20 mg IVP x1. #L. Comminuted supracondylar femur fracture s/p ORIF w/ an intramedullary device in the femur -Pain mgmt & post-op DVT ppx per General Surgery # Anemia - Iron studies do not show iron deficiency. She is on po iron. F/u FOBT - Aspirin held. #Afib; According to Keila, the cloud systems administrator at her Residential Facility, [facility], the patient has never had any diagnosis of arrhythmia until she presented to the ED on this admission, where the patient was informed that she had EKG. review of the patient's EKGs, showed that the patient did not have A. fib. Per the nurse, the patient has been in normal sinus rhythm since admission. Although I want to remove the diagnosis, she is also on amiodarone daily, so I will reach out to the cloud systems administrator again to find out why she is on amiodarone. #E. coli UTI, Pyelonephritis #E.coli bacteremia #KEVYN - likely pre-renal # Hyponatremia- likely hypovolemia # Hypokalemia - Increased Ceftriaxone to 2g. F/u Repeat BCx. Reassess renal function in the AM. CT abd/pelvis w/o contrast ordered showed b/l pyelonephritis. D/c IVF given crackles in R. middle to lower lobe and LLL. Will get a CXR. #Hold oxybutynin. It may not be helping the UTIs. # Tranaminitis - Maybe due to ischemia due to volume loss. If unimproved w/ IVF, will initiate further workup. #Acquired hypothyroidism - Continue home med. #Paranoid Schizophrenia, Anxiety, Mood d/o - Her Paranoid Schizophrenia was confirmed by Gillian. Continue Haldol & Prozac. #GERD - On pantoprazole # Allergic rhinitis - On Montelukast #COPD - On Breo-Ellipta. Of note, the patient's caregiver, Gillian states that the patient has a long history of smoking cigars and cigarettes, and has a chronic cough that actually is improved from her perspective. Breo-Ellipta not on formulary. Ordered Advair DVT ppx: Mgmt per Orthopedic surgery Attestations Medical Necessity Statement*: Patient requires continued hospitalization due to the development of wheezing and shortness of breath, with concern for some volume overload requiring diuresis. Coding Level of Care Code Acute Baster Hand for [facility] Fwd Diagnoses Supracondylar fracture of left femur S72.452A Gram-negative bacteremia R78.81 UTI (urinary tract infection) N39.0 KEVYN (acute kidney injury) N17.9 Transaminitis R74.01 Hyponatremia E87.1 Hypokalemia E87.6 Anemia D64.9 Anemia type: unspecified type COPD (chronic obstructive pulmonary disease) J44.9 COPD type: unspecified COPD Essential hypertension I10 Acquired hypothyroidism E03.9 Paranoid schizophrenia F20.0
[2021-04-13] MEDS: sennosides-docusate Tablet 2 TAB PO ×2 (09:32→17:51)
[2021-04-13] MEDS: magnesium hydroxide 30 mL UDC PO (09:35)
[2021-04-13] MEDS: chlorhexidine gluconate 0.12% Btl 473 mL 30 ML MUCOUS MEM (09:36)
[2021-04-13] MEDS: mupirocin oint 22 gm 1 APPLIC NASAL ×2 (09:36→17:51)
[2021-04-13] MEDS: cefTRIAXone 2,000 MG in sodium chloride 0.9% (plus) 100 ML 200 MG IV (09:47)
--- NOTE | 2021-04-13 15:14 | XR_ITS ---
WS: [id number] Portable AP upright chest, 04/13/2021 Clinical Data: crackles Comparison: Portable chest, 04/09/2021. Findings: No nodules, masses or effusions are seen. The heart is normal. The pulmonary vascularity is not increased. No pneumonia or pneumothorax is seen. The aortic arch and descending aorta show calci fication and tortuosity. There is a dextroscoliosis of the thoracic spine. XR/XR chest 1V portable [id number] Impression: Atherosclerosis.
[2021-04-13 16:11] LABS: NT Pro B Type Natriuretic Pept 7852 pg/mL (0-450)
--- NOTE | 2021-04-13 21:02 | PC.NURSE ---
incontinent x 2
[2021-04-13] MEDS: FUROsemide 10 mg/mL SDV 2mL 20 MG IVP (21:39)
[2021-04-13] MEDS: enoxaparin 40 mg/0.4 mL Syringe SUBCUT (21:39)
[2021-04-13] MEDS: levothyroxine 25 mcg Tablet PO (21:40)
[2021-04-13] MEDS: atorvastatin 40 mg Tablet 20 MG PO (21:40)
--- NOTE | 2021-04-13 21:40 | PC.RESP ---
This rt unable to get pt to understand this medication's use and side effects. Medication not given.
[2021-04-14] VITALS (9 sets, daily range): BP systolic 132–174; BP diastolic 60–72; PULSE 58–68; RESP 16–20; TEMP 36.7–37.3; O2SAT 90–98
[2021-04-14] MEDS: amiodarone 200 mg Tablet PO (05:48)
[2021-04-14] MEDS: pantoprazole DR 40 mg Tablet PO (05:48)
[2021-04-14] MEDS: divalproex ER 250 mg Tablet (24H) PO ×2 (05:48→17:23)
[2021-04-14] MEDS: fluoxetine 20 mg Capsule PO (05:48)
[2021-04-14] MEDS: ferrous sulfate EC 325 mg Tablet PO (05:48)
[2021-04-14 07:15] LABS: Basophils # 0.1 10^3/uL (0.0-0.1); Basophils % 0.6 %; Eosinophils # 0.1 10^3/uL (0.0-0.8); Eosinophils % 0.9 %; Hematocrit 24.1 % (37.0-47.0); Hemoglobin 8.1 g/dL (11.5-15.3); Lymphocytes # 1.6 10^3/uL (0.8-4.8); Lymphocytes % 13.1 %; Mean Corpuscular HGB Conc 33.6 g/dL (30.0-36.0); Mean Corpuscular Volume 92.3 fL (81-99); Mean Platelet Volume 11.2 fL (7.4-10.4); Monocytes # 1.4 10^3/uL (0.2-0.9); Monocytes % 11.6 %; Neutrophils # 7.12 10^3/uL (1.8-7.7); Neutrophils % 58.5 %; Nucleated Red Blood Cells % 0 %; Platelet Count 219 10^3/cmm (130-400); Red Blood Count 2.61 10^6/uL (4.1-5.3); White Blood Count 12.2 10^3/uL (4.0-10.0)
[2021-04-14 07:36] LABS: Alanine Aminotransferase 26 U/L (0-33); Alkaline Phosphatase 182 IU/L (35-105); Anion Gap 12.6 (5-19); Aspartate Amino Transferase 33 U/L (0-32); Blood Urea Nitrogen 26 mg/dL (8-23); Calcium 7.6 mg/dL (8.5-10.5); Carbon Dioxide 22 mmol/L (22-29); Chloride 106 mmol/L (98-107); Glucose 68 mg/dL (65-115); Osmolality Calculated 287 mOsm/kg (285-295); Potassium 3.6 mmol/L (3.5-5.1); Sodium 137 mmol/L (136-145); Total Bilirubin 0.3 mg/dL (0.15-1.2)
[2021-04-14 07:40] LABS: Phosphorus 3.2 mg/dL (2.5-4.5)
[2021-04-14 07:59] LABS: Slide Review Slide Review Perform
[2021-04-14] MEDS: bisacodyl 5 mg Tablet 10 MG PO (08:37)
[2021-04-14] MEDS: magnesium hydroxide 30 mL UDC PO (08:37)
[2021-04-14] MEDS: sennosides-docusate Tablet 2 TAB PO (08:37)
[2021-04-14] MEDS: ciprofloxacin 500 mg Tablet PO ×2 (08:37→20:25)
[2021-04-14] MEDS: mupirocin oint 22 gm 1 APPLIC NASAL ×2 (08:44→17:23)
--- NOTE | 2021-04-14 11:12 | PC.SOCIAL ---
IMM Update Pg. 2 of IMM updated with patient's guardian over the phone. Verbalized understanding. Copy left at bedside.
--- NOTE | 2021-04-14 14:29 | P.PN_ITS ---
Subjective Subjective: Interval history: Awake and alert. Tries to communicate Vitals/I&O/Wt Last Vital Signs Temp 98.3 F 04/14/21 11:27 Pulse 60 04/14/21 11:27 Resp 16 04/14/21 11:27 BP 132/60 04/14/21 11:27 Pulse Ox 90 04/14/21 11:27 04/13/21 04/14/21 04/14/21 22:59 06:59 14:59 Intake Total 240 / 440 50 / 490 360 / 360 Balance 240 / 440 50 / 490 360 / 360 Physical Exam Narrative: EXAM NARRATIVE: Left femur dressing clean and dry Urinary Catheter Management^: Velázquez: Cath Placed During This Visit: yes, but has since been removed by the nurse Reason for Continuing Indwelling Catheter: Decision to DC Catheter Urinary Catheter Date of Insertion: 04/09/21 Urinary Catheter Time of Insertion: 17:16 Date Urinary Catheter Removed: 04/12/21 Time Urinary Catheter Discontinued: 10:00 Data : 04/14/21 06:15 04/14/21 06:15 Micro: Microbiology 04/14/21 10:30 Occult Blood (FIT) - Final Stool Routine Collection 04/09/21 16:47 Blood Culture - Final Blood Escherichia coli 04/09/21 16:40 Blood Culture - Final Blood Escherichia coli A&P Assessment and plan (1) Supracondylar fracture of left femur: Status: Acute (2) Postoperative state: Awaiting placement. No ortho issues Status: Acute Attestations Medical Necessity Statement*: As per medicine Coding Level of Care Code Acute Child Care Assistant for Basilio Toth Diagnoses Supracondylar fracture of left femur S72.452A Postoperative state Z98.890
[2021-04-14] MEDS: potassium chloride ER 20 mEq Tablet 40 MEQ PO ×2 (14:55→20:24)
[2021-04-14] MEDS: FUROsemide 10 mg/mL SDV 4mL 40 MG IVP (14:55)
[2021-04-14] MEDS: atorvastatin 40 mg Tablet 20 MG PO (20:25)
[2021-04-14] MEDS: chlorhexidine gluconate 0.12% Btl 473 mL 30 ML MUCOUS MEM (20:25)
[2021-04-14] MEDS: levothyroxine 25 mcg Tablet PO (20:25)
--- NOTE | 2021-04-14 22:41 | PM.PN ---
Subjective Subjective: Interval history: A dose of Lasix 20 mg IVP x1 was given, and how much the patient urinated is unclear, because it was not documented. According to the patient's credit control administrator, Gillian, the patient seems to have urinated up to 4 times between the night and approximately 7 AM when the patient was seen. The patient was sitting in the chair, and again on approximately 1 L of O2. Apparently when the O2 was removed, her O2 sats decreased. The patient was also visibly short of breath, although not uncomfortable. She did have some expiratory wheezes. Communication is primarily through her credit control administrator Gillian. Vitals/I&O/Wt Last Vital Signs Temp 99.1 F 04/14/21 19:57 Pulse 63 04/14/21 19:57 Resp 16 04/14/21 19:57 BP 154/65 04/14/21 19:57 Pulse Ox 95 04/14/21 19:57 04/14/21 04/14/21 04/14/21 06:59 14:59 22:59 Intake Total 50 / 490 360 / 360 280 / 640 Balance 50 / 490 360 / 360 280 / 640 Physical Exam Const: COMMON NORMALS: alert GENERAL APPEARANCE: comfortable ORIENTATION/CONSCIOUSNESS: Yes awake HENMT: COMMON NORMALS: normocephalic, atraumatic, external ears normal and Normal external nose present HEAD & SCALP: normocephalic and atraumatic FACE & SINUS: normal facial exam NOSE: Normal external nose present GENERAL EAR: hearing grossly impaired EXTERNAL EAR: Yes external ears normal MOUTH: Normal oral and palatal mucosa present Eye: COMMON NORMALS: Equal, round and reactive pupils present and conjunctivae normal CONJUNCTIVA: Yes conjunctivae normal PUPIL: Yes Equal, round and reactive pupils present EOM: No EOM abnormal Resp: AUSCULTATION: crackles Laterality: bilateral (R. middle & lower lobe, LLL. ), no rales, no rhonchi and no wheezes Cardio: COMMON NORMALS: regular rate and regular rhythm RATE: regular rate RHYTHM: regular rhythm HEART SOUNDS: no click, no gallops, no murmurs and no rubs GI: COMMON NORMALS: Soft to palpation and No hepatosplenomegaly present AUSCULTATION: Yes normoactive bowel sounds PALPATION: Yes Soft to palpation, No Firmness to palpation present (GI), No Tenderness to palpation present (GI), No Guarding due to palpation present (GI), No Rigid due to palpation, Yes No hepatosplenomegaly present and No Rebound tenderness present : BLADDER/KIDNEY EXAM: Yes catheter in place Catheter type (Female): urethral Extremity: GENERAL: No clubbing, No cyanosis and No edema Neuro: SENSORIUM/ORIENTATION: Yes alert CRANIAL NERVES: Yes CN normal except as noted SPEECH: abnormal speech Details: garbled Psych: ATTITUDE: Yes calm ACTIVITY/MOTOR BEHAVIOR: Yes appropriate eye contact MOOD & AFFECT: Yes euthymic mood Skin: COMMON NORMALS: no rashes or lesions noted GENERAL SKIN EXAM: no rashes or lesions noted Urinary Catheter Management^: Velázquez: Cath Placed During This Visit: yes, but has since been removed by the nurse Reason for Continuing Indwelling Catheter: Decision to DC Catheter Urinary Catheter Date of Insertion: 04/09/21 Urinary Catheter Time of Insertion: 17:16 Date Urinary Catheter Removed: 04/12/21 Time Urinary Catheter Discontinued: 10:00 Data : 04/15/21 06:46 04/15/21 06:46 Micro: Microbiology 04/14/21 10:30 Occult Blood (FIT) - Final Stool Routine Collection A&P Assessment and plan (1) Supracondylar fracture of left femur: Status: Acute (2) Gram-negative bacteremia: Status: Acute (3) UTI (urinary tract infection): Status: Acute (4) KEVYN (acute kidney injury): Status: Acute (5) Transaminitis: Status: Acute (6) Hyponatremia: Status: Acute (7) Hypokalemia: Status: Acute (8) Anemia: Status: Acute Qualifiers: Anemia type: unspecified type Qualified Code(s): D64.9 - Anemia, unspecified (9) COPD (chronic obstructive pulmonary disease): Status: Acute Qualifiers: COPD type: unspecified COPD Qualified Code(s): J44.9 - Chronic obstructive pulmonary disease, unspecified (10) Essential hypertension: Status: Acute (11) Acquired hypothyroidism: Status: Acute (12) Paranoid schizophrenia: Status: Chronic Ms. Vu is a 75yo woman w/ Paranoid schizophrenia per Keila , the credit control administrator at her residential facility, [facility], who was brought to the ED on 04/10/2021 after a fall at her Geriatric Dementia unit. In the ED, the patient sustained a L. Comminuted supracondylar femur fracture. She also had an abnormally high leukocytosis of 30. Her UA was concerning for a UTI, and her blood cultures were positive for GNR bacteremia. She is s/p ORIF w/ an intramedullary device in the femur on 04/11. # Vol overload: Although CXR does not show increased pulmonary vascularity, given her physical exam, and the fact that she was wheezing bilaterally. Give another dose of Lasix 40 mg IVP x1 and add 25 mg of 25% albumin. Will monitor patient's urine output. #L. Comminuted supracondylar femur fracture s/p ORIF w/ an intramedullary device in the femur -Pain mgmt & post-op DVT ppx per General Surgery # Anemia - Iron studies do not show iron deficiency. She is on po iron. F/u FOBT - Aspirin held. #Afib; According to Keila, the credit control administrator at her Residential Facility, [facility], the patient has never had any diagnosis of arrhythmia until she presented to the ED on this admission, where the patient was informed that she had EKG. review of the patient's EKGs, showed that the patient did not have A. fib. Per the nurse, the patient has been in normal sinus rhythm since admission. Although I want to remove the diagnosis, she is also on amiodarone daily, so unless she has a lethal arrhythmia, such as V. tach, for which she needs amiodarone, she is likely on amiodarone for A. fib. I spoke with Gillian the credit control administrator on 04/14/2021, who stated that she is normally followed by KOSTAS Pereira, a Provider at [facility] clinic at [place]. #E. coli UTI, Pyelonephritis #E.coli bacteremia #KEVYN - likely pre-renal # Hyponatremia- likely hypovolemia # Hypokalemia - Increased Ceftriaxone to 2g. F/u Repeat BCx. Reassess renal function in the AM. CT abd/pelvis w/o contrast ordered showed b/l pyelonephritis. Switched patient to Cipro. #Hold oxybutynin. It may not be helping the UTIs. # Tranaminitis - Maybe due to ischemia due to volume loss. If unimproved w/ IVF, will initiate further workup. #Acquired hypothyroidism - Continue home med. #Paranoid Schizophrenia, Anxiety, Mood d/o - Her Paranoid Schizophrenia was confirmed by Gillian. Continue Haldol & Prozac. #GERD - On pantoprazole # Allergic rhinitis - On Montelukast #COPD - On Breo-Ellipta. Of note, the patient's caregiver, Gillian states that the patient has a long history of smoking cigars and cigarettes, and has a chronic cough that actually is improved from her perspective. Breo-Ellipta not on formulary. Ordered Advair DVT ppx: Mgmt per Orthopedic surgery Attestations Medical Necessity Statement*: Patient requires continued hospitalization due to concern for volume overload with her visible shortness of breath, and expiratory wheezes. The goal is to diurese her such that she can wean off the O2 easily. Time Spent in Patient Care: 16 - 35 minutes Coding Level of Care Code Acute [employer] Salesperson for Chg Fwd Diagnoses Supracondylar fracture of left femur S72.452A Gram-negative bacteremia R78.81 UTI (urinary tract infection) N39.0 KEVYN (acute kidney injury) N17.9 Transaminitis R74.01 Hyponatremia E87.1 Hypokalemia E87.6 Anemia D64.9 Anemia type: unspecified type COPD (chronic obstructive pulmonary disease) J44.9 COPD type: unspecified COPD Essential hypertension I10 Acquired hypothyroidism E03.9 Paranoid schizophrenia F20.0
[2021-04-15] MEDS: enoxaparin 40 mg/0.4 mL Syringe SUBCUT (00:24)
[2021-04-15 03:42] VITALS: BP 157/73; PULSE 62; RESP 18; TEMP 36.4; O2SAT 91
[2021-04-15] MEDS: fluoxetine 20 mg Capsule PO (06:35)
[2021-04-15] MEDS: pantoprazole DR 40 mg Tablet PO (06:36)
[2021-04-15] MEDS: divalproex ER 250 mg Tablet (24H) PO ×2 (06:36→18:09)
[2021-04-15] MEDS: amiodarone 200 mg Tablet PO (06:36)
[2021-04-15] MEDS: ferrous sulfate EC 325 mg Tablet PO (06:37)
[2021-04-15 07:06] LABS: Basophils # 0.1 10^3/uL (0.0-0.1); Basophils % 0.5 %; Eosinophils # 0.1 10^3/uL (0.0-0.8); Eosinophils % 0.7 %; Hematocrit 24.9 % (37.0-47.0); Lymphocytes # 1.5 10^3/uL (0.8-4.8); Lymphocytes % 12.3 %; Mean Corpuscular HGB Conc 32.1 g/dL (30.0-36.0); Mean Corpuscular Volume 96.5 fL (81-99); Mean Platelet Volume 10.5 fL (7.4-10.4); Monocytes % 8.3 %; Neutrophils # 7.92 10^3/uL (1.8-7.7); Nucleated Red Blood Cells % 0 %; Platelet Count 267 10^3/cmm (130-400); Red Blood Count 2.58 10^6/uL (4.1-5.3); Red Cell Distribution Width 15.3 % (12.1-15.1)
[2021-04-15 07:26] LABS: Alanine Aminotransferase 22 U/L (0-33); Albumin Level 2.4 g/dL (3.5-5.2); Alkaline Phosphatase 167 IU/L (35-105); Anion Gap 9.5 (5-19); Aspartate Amino Transferase 33 U/L (0-32); Blood Urea Nitrogen 21 mg/dL (8-23); Calcium 7.9 mg/dL (8.5-10.5); Carbon Dioxide 25 mmol/L (22-29); Chloride 106 mmol/L (98-107); Globulin 2.4 g/dL (1.3-4.6); Glucose 86 mg/dL (65-115); Osmolality Calculated 284 mOsm/kg (285-295); Potassium 4.5 mmol/L (3.5-5.1); Sodium 136 mmol/L (136-145); Total Bilirubin 0.4 mg/dL (0.15-1.2); Total Protein 4.8 g/dL (6.6-8.7)
[2021-04-15] MEDS: sennosides-docusate Tablet 2 TAB PO (07:59)
[2021-04-15] MEDS: HYDROcodone-acetaminophen 5-325 mg Tablet 1 TAB PO (07:59)
[2021-04-15] MEDS: magnesium hydroxide 30 mL UDC PO (07:59)
[2021-04-15 08:00] VITALS: BP 128/64; PULSE 68; RESP 16; TEMP 37.4; O2SAT 91
[2021-04-15] MEDS: ciprofloxacin 500 mg Tablet PO (08:00)
[2021-04-15] MEDS: mupirocin oint 22 gm 1 APPLIC NASAL (08:07)
[2021-04-15 08:43] LABS: Slide Review Slide Review Perform
[2021-04-15 09:26] LABS: NT Pro B Type Natriuretic Pept 7556 pg/mL (0-450)
[2021-04-15 10:00] VITALS: PULSE 60; RESP 18; O2SAT 97
[2021-04-15] MEDS: albumin 12.5 GM/50 ML VIAL IV (10:00)
[2021-04-15] MEDS: FUROsemide 10 mg/mL SDV 4mL 40 MG IVP (10:27)
[2021-04-15 11:57] VITALS: BP 146/68; PULSE 54; RESP 14; TEMP 36.7; O2SAT 94
--- NOTE | 2021-04-15 13:37 | P.DS_ITS ---
Discharge Providers Date of Admission: 04/09/21 19:03 Date of Discharge: April 15, 2021 Attending Provider at Admission: Omega Mike MD Attending Provider at Discharge: Hilary Santiago MD Primary Care Provider: JUSTINE Nash Diagnoses at Discharge Discharge Diagnosis (1) Supracondylar fracture of left femur: Status: Acute (2) Gram-negative bacteremia: Status: Resolved (3) UTI (urinary tract infection): Status: Resolved (4) KEVYN (acute kidney injury): Status: Resolved (5) Transaminitis: Status: Resolved (6) Hyponatremia: Status: Resolved (7) Hypokalemia: Status: Resolved (8) Anemia: Qualifiers: Anemia type: unspecified type Qualified Code(s): D64.9 - Anemia, unspecified (9) COPD (chronic obstructive pulmonary disease): Qualifiers: COPD type: unspecified COPD Qualified Code(s): J44.9 - Chronic obstructive pulmonary disease, unspecified (10) Essential hypertension: (11) Acquired hypothyroidism: (12) Paranoid schizophrenia: Reason for Visit Reason for Visit: LEFT LEG PAIN S/P FALL Hospital Course Hospital Course Ms. Vu is a 75yo woman w/ Paranoid schizophrenia confirmed by Keila , the it security administrator at her residential facility, [facility], who was brought to the ED on 04/10/2021 after a fall at her Geriatric Dementia unit. In the ED, the patient sustained a L. Comminuted supracondylar femur fracture. She also had an abnormally high leukocytosis of 30. Her UA was concerning for a UTI, and her blood cultures were positive for GNR bacteremia. She is s/p ORIF w/ an intramedullary device in the femur on 04/11.Her UA showed E. coli UTI. Her BCx were positive for E. coli bacteremia, and repeat was negative. Her CT abd/pelvis showed bilateral pyelonephritis. She was on Ceftriaxone 4 days and then switched to Cipro for another 6 days. She became SOB and developed a 1L O2 requirement. It was thought that she was vol overloaded. She was diuresed with Lasix prior to discharge. She is on Oxybutynin, it was discontinued at the time of discharge, because there is a concern that her oxybutynin is causing increased urinary retention, leading to UTIs. . Other issues addressed # Anemia - Iron studies do not show iron deficiency. She is on po iron. F/u FOBT #Afib; According to Keila, the it security administrator at her Residential Facility, [facility], the patient has never had any diagnosis of arrhythmia until she presented to the ED on this admission, where the patient was informed that she had EKG. review of the patient's EKGs, showed that the patient did not have A. fib. Per the nurse, the patient has been in normal sinus rhythm since admission. Although I want to remove the diagnosis, she is also on amiodarone daily, so unless she has a lethal arrhythmia, such as V. tach, for which she needs amiodarone, she is likely on amiodarone for A. fib. I spoke with Gillian the it security administrator on 04/14/2021, who stated that she is normally followed by KOSTAS Pereira, a Provider at [facility] clinic at [place]. She was referred to [facility] for follow up. #Acquired hypothyroidism - Continue home med. #Paranoid Schizophrenia, Anxiety, Mood d/o - Her Paranoid Schizophrenia was confirmed by Gillian. Continue Haldol & Prozac. #GERD - On pantoprazole # Allergic rhinitis - On Montelukast #COPD - On Breo-Ellipta. Physical Exam Const: COMMON NORMALS: alert GENERAL APPEARANCE: comfortable ORIENTATION/CONSCIOUSNESS: Yes awake HENMT: COMMON NORMALS: normocephalic, atraumatic, external ears normal and Normal external nose present HEAD & SCALP: normocephalic and atraumatic FACE & SINUS: normal facial exam NOSE: Normal external nose present GENERAL EAR: hearing grossly impaired EXTERNAL EAR: Yes external ears normal MOUTH: Normal oral and palatal mucosa present Eye: COMMON NORMALS: Equal, round and reactive pupils present and conjunctivae normal CONJUNCTIVA: Yes conjunctivae normal PUPIL: Yes Equal, round and reactive pupils present EOM: No EOM abnormal Resp: AUSCULTATION: crackles Laterality: bilateral (R. middle & lower lobe, LLL. ), no rales, no rhonchi and no wheezes Cardio: COMMON NORMALS: regular rate and regular rhythm RATE: regular rate RHYTHM: regular rhythm HEART SOUNDS: no click, no gallops, no murmurs and no rubs GI: COMMON NORMALS: Soft to palpation and No hepatosplenomegaly present A USCULTATION: Yes normoactive bowel sounds PALPATION: Yes Soft to palpation, No Firmness to palpation present (GI), No Tenderness to palpation present (GI), No Guarding due to palpation present (GI), No Rigid due to palpation, Yes No hepatosplenomegaly present and No Rebound tenderness present : BLADDER/KIDNEY EXAM: Yes catheter in place Catheter type (Female): urethral Extremity: GENERAL: No clubbing, No cyanosis and No edema Neuro: SENSORIUM/ORIENTATION: Yes alert CRANIAL NERVES: Yes CN normal except as noted SPEECH: abnormal speech Details: garbled Psych: ATTITUDE: Yes calm ACTIVITY/MOTOR BEHAVIOR: Yes appropriate eye co ntact MOOD & AFFECT: Yes euthymic mood Skin: COMMON NORMALS: no rashes or lesions noted GENERAL SKIN EXAM: no rashes or lesions noted Urinary Catheter Management^: Velázquez: Cath Placed During This Visit: yes, but has since been removed by the nurse Reason for Continuing Indwelling Catheter: Decision to DC Catheter Urinary Catheter Date of Insertion: 04/09/21 Urinary Catheter Time of Insertion: 17:16 Date Urinary Catheter Removed: 04/12/21 Time Urinary Catheter Discontinued: 10:00 Discharge Data Data Completed and Pending: Completed Studies During Hospitalization Category Date Time Status CT abdomen pelvis wo con 02062 Rout ine Cat Scan 04/11/21 21:[address] angio LE BI 73 706 Stat Cat Scan 04/09/21 15:[address] cervical spin wo con* [id number] Urge nt Cat Scan 04/09/21 14:[address] facial bones w o con* 38981 Urgen t Cat Scan 04/09/21 14:[address] head wo con* 7 0450 Urgent Cat Scan 04/09/21 14:47 Completed XR chest 1V macario ble [id number] Stat Exams 04/13/21 15:14 Completed XR chest 1V macario ble [id number] Urgent Exams 04/09/21 15:20 Completed XR femur LT min 2 V* [id number] Routine Exams 04/11/21 Completed XR femur LT min 2 V* [id number] Urgent Exams 04/09/21 14:46 Completed Pending at discharge Category Date Time Status Blood Culture Sta t Lab 04/11/21 21:31 Results Complete Blood Co unt w/Auto AM LABS Lab 04/16/21 04:00 Ordered Labs from last 24 hours 04/15/21 04/15/21 04/15/21 06:46 06:46 04:23 WBC 12.0 H RBC 2.58 L Hgb 8.0 L Hct 24.9 L MCV 96.5 MCH 31.0 MCHC 32.1 RDW 15.3 H Plt Count 267 MPV 10.5 H Neut % (Auto) 66.0 Lymph % (Auto) 12.3 Gates % (Auto) 8.3 Eos % (Auto) 0.7 Baso % (Auto) 0.5 Neut # (Auto) 7.92 H Lymph # (Auto) 1.5 Gates # (Auto) 1.0 H Eos # (Auto) 0.1 Baso # (Auto) 0.1 Nucleated RBC % (a uto) 0 Nucleated RBCs # 0.0 Sodium 136 Potassium 4.5 Chloride 106 Carbon Dioxide 25 Anion Gap 9.5 BUN 21 Creatinine 0.7 GFR Calculation Not Reportable Glucose 86 Calculated Osmolal ity 284 L Calcium 7.9 L Total Bilirubin 0.4 AST 33 H ALT 22 Alkaline Phosphata se 167 H NT-Pro-B Natriuret Pep 7556 H Total Protein 4.8 L Albumin 2.4 L Globulin 2.4 Vitals: Last Vital Signs Temp 98.1 F 04/15/21 11:57 Pulse 54 L 04/15/21 11:57 Resp 14 04/15/21 11:57 BP 146/68 04/15/21 11:57 Pulse Ox 94 04/15/21 11:57 Discharge Plan Discharge Patient Disposition: Home Condition: Stable Prescriptions: New ciprofloxacin HCl 500 mg Tablet 500 mg PO BID@0900,2100 Qty: 11 RF: 0 Continued aspirin [Adult Low Dose Aspirin] 81 mg tablet,delayed release (DR/EC) 81 mg PO DAILY@06 RF: 0 ferrous sulfate 325 mg (65 mg iron) tablet 325 mg PO DAILY@06 RF: 0 multivitamin Tablet 1 tab PO DAILY@06 RF: 0 pantoprazole 40 mg tablet,delayed release (DR/EC) 40 mg PO DAILY@06 RF: 0 docusate sodium [Colace] 100 mg capsule 100 mg PO BID@,18 RF: 0 lorazepam [Ativan] 0.5 mg tablet 0.25 mg PO BID PRN (Reason: anxiety) Qty: 30 RF: 3 haloperidol 2 mg tablet 2 mg PO BID PRN (Reason: agitation) Qty: 60 RF: 3 nitroglycerin 0.4 mg tablet, sublingual 0.4 mg SUBLINGUAL Q5M PRN (Reason: Chest Pain) Qty: 30 RF: 0 simvastatin 20 mg tablet 20 mg PO DAILY@21 RF: 0 perphenazine 2 mg tablet 6 mg PO DAILY@06 RF: 0 amiodarone 200 mg tablet 200 mg PO DAILY@06 RF: 0 levothyroxine 25 mcg tablet 25 mcg PO DAILY@21 RF: 0 montelukast 10 mg tablet 10 mg PO DAILY@21 RF: 0 Prozac 20 mg capsule 20 mg PO DAILY@06 RF: 0 Depakote ER 250 mg tablet extended release 24 hr 250 mg PO BID@,18 RF: 0 Oyster Shell + D3 250-125 mg-unit tablet 1 tab PO BID@,18 RF: 0 Breo Ellipta 200-25 mcg/dose blister with device 1 inh inhalation DAILY@06 RF: 0 Changed ibuprofen 600 mg tablet 600 mg PO TID@06,,18 PRN (Reason: pain) Qty: 0 RF: 0 Discontinued oxybutynin chloride 5 mg tablet 5 mg PO BID@,18 RF: 0 Discharge Orders: Discharge Order (Routine); Ordered 04/15/21 Ordered By: Hilary Santiago Other Ambulatory Orders: DME: Oxygen (Order) Location: None Selected Ordered By: Hilary Santiago Referrals: Erin Tierney MD [Physician] - 1 month (Call [facility] Sunday to schedule appointment. 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 ) KOSTAS Pereira, JUSTINE [Primary Care Provider] - 04/29/21 9:00 am (I stopped Oxybutynin. Patient has E. coli UTI, E. coli pyelonephritis, & E. coli bacteremia) Neal Gongora MD [Physician] - 05/16/21 8:45 am Discharge Diet: Advance as tolerated Discharge Activity: Limit activity as instructed Patient Instructions: Opioid Safety Activity Restrictions/Additional Instructions: Leave Immobilizer on patient except when therapy working on range of motion. May change dressing as needed for drainage. Okay to shower or sponge bathe once incision free of drainage Discharge Attestations Time Spent in Discharge Care*: less than 30 min Quality Metrics Clinical Quality Measures During this hospital stay, did patient experience: None Coding Level of Care Code Acute Chg FW DC note Diagnoses Supracondylar fracture of left femur S72.452A Gram-negative bacteremia R78.81 UTI (urinary tract infection) N39.0 KEVYN (acute kidney injury) N17.9 Transaminitis R74.01 Hyponatremia E87.1 Hypokalemia E87.6 Anemia D64.9 Anemia type: unspecified type COPD (chronic obstructive pulmonary disease) J44.9 COPD type: unspecified COPD Essential hypertension I10 Acquired hypothyroidism E03.9 Paranoid schizophrenia F20.0
[2021-04-15 13:44] VITALS: O2SAT 88
== END 2021-04-15 19:15 | disposition skilled nursing facility (03) | DRG 481 ==
LOC: ER 15:27 → MEDSURG 20:38
PROVIDERS: Emergency Medicine; Orthopaedic Surgery; Physician Assistant; Admitting Provider Internal Medicine; Emergency Provider Family Medicine; PCP Nurse Practitioner Family; Visit Provider Internal Medicine
PROC: 0QSC06Z Reposition Left Lower Femur with Intramedullary Internal Fixation Device, Open Approach (ICD-10-PCS; principal; 2021-04-11 15:45)
DX: S72.452A Displaced supracondylar fracture without intracondylar extension of lower end of left femur, initial encounter for closed fracture (principal); F20.0 Paranoid schizophrenia; N39.0 Urinary tract infection, site not specified; N17.9 Acute kidney failure, unspecified; N10 Acute pyelonephritis; W01.0XXA Fall on same level from slipping, tripping and stumbling without subsequent striking against object, initial encounter; E03.9 Hypothyroidism, unspecified; I25.10 Atherosclerotic heart disease of native coronary artery without angina pectoris; J44.9 Chronic obstructive pulmonary disease, unspecified; I10 Essential (primary) hypertension; K21.9 Gastro-esophageal reflux disease without esophagitis; Z85.3 Personal history of malignant neoplasm of breast; Z90.12 Acquired absence of left breast and nipple; F03.90 Unspecified dementia, unspecified severity, without behavioral disturbance, psychotic disturbance, mood disturbance, and anxiety; H91.93 Unspecified hearing loss, bilateral; E53.8 Deficiency of other specified B group vitamins; E78.5 Hyperlipidemia, unspecified; E55.9 Vitamin D deficiency, unspecified; F17.210 Nicotine dependence, cigarettes, uncomplicated; Z79.82 Long term (current) use of aspirin
CPT/HCPCS: 36415; 51702; 70450; 70486; 71045; 72125; 73552; 73706; 74176; 76000; 80053; 81001; 82274; 82607; 82728; 82746; 83540; 83550; 83605; 83735; 83880; 84100; 84145; 84484; 85007; 85025; 86850; 86900; 86920; 87040; 87077; 87086; 87186; 87426; 93005; 96361; 96365; 96372; 96375; 97110; 97162; 97167; 97530; 97535; 99285; C1713; J0696; J1580; J1650; J1940; J2270; J3010; J3480; J7030; P9047; Q9967

== ENCOUNTER → 2021-04-29 00:01 | Outpatient (BNVA) | payer MEDICARE, MEDICAID, SELFPAY | PROVIDERS: PCP Nurse Practitioner Family; Visit Provider Nurse Practitioner Family | DX: I25.10 Atherosclerotic heart disease of native coronary artery without angina pectoris (principal); Z98.890 Other specified postprocedural states | CPT/HCPCS: 80053; 83880; 85025 ==

== ENCOUNTER → 2021-05-02 13:35 | Outpatient (BNVA) | payer MEDICARE, MEDICAID, SELFPAY | PROVIDERS: PCP Nurse Practitioner Family; Visit Provider Nurse Practitioner Family | DX: Z98.890 Other specified postprocedural states (principal); Z79.899 Other long term (current) drug therapy | CPT/HCPCS: 81003 ==

== ENCOUNTER → 2021-05-18 11:35 | Outpatient (BNVA) | payer MEDICARE, MEDICAID, OTHER, SELFPAY | PROVIDERS: PCP Nurse Practitioner Family; Visit Provider Orthopaedic Surgery | DX: Z48.89 Encounter for other specified surgical aftercare (principal) | CPT/HCPCS: 73502 ==

== ENCOUNTER → 2021-06-21 11:03 | Outpatient (BNVA) | payer MEDICARE, MEDICAID, SELFPAY | PROVIDERS: PCP Nurse Practitioner Family; Visit Provider Orthopaedic Surgery | DX: Z48.89 Encounter for other specified surgical aftercare (principal) | CPT/HCPCS: 73502 ==

== ENCOUNTER → 2021-07-19 09:46 | Outpatient (BNVA) | payer MEDICARE, MEDICAID, SELFPAY | PROVIDERS: PCP Nurse Practitioner Family; Visit Provider Orthopaedic Surgery | DX: Z48.89 Encounter for other specified surgical aftercare (principal) | CPT/HCPCS: 73502 ==

== ENCOUNTER → 2021-07-22 08:17 | Outpatient (BNVA) | payer MEDICARE, MEDICAID, SELFPAY | PROVIDERS: PCP Nurse Practitioner Family; Visit Provider Nurse Practitioner Psychiatric/Mental Health | DX: F20.0 Paranoid schizophrenia (principal); Z79.899 Other long term (current) drug therapy | CPT/HCPCS: 99214 ==

== ENCOUNTER → 2021-08-08 12:03 | Outpatient (BNVA) | payer MEDICARE, MEDICAID, SELFPAY | PROVIDERS: PCP Nurse Practitioner Family; Visit Provider Nurse Practitioner Family | DX: E61.1 Iron deficiency (principal); F20.0 Paranoid schizophrenia; E03.9 Hypothyroidism, unspecified; E78.2 Mixed hyperlipidemia; I10 Essential (primary) hypertension | CPT/HCPCS: 80061; 80164; 83550; 84443; 85025 ==

== ENCOUNTER → 2021-08-09 10:00 | Outpatient (BNVA) | payer MEDICARE, MEDICAID, SELFPAY | PROVIDERS: PCP Nurse Practitioner Family; Visit Provider Nurse Practitioner Family | DX: I10 Essential (primary) hypertension (principal); E61.1 Iron deficiency; E78.2 Mixed hyperlipidemia; F20.0 Paranoid schizophrenia; E03.9 Hypothyroidism, unspecified; Z79.899 Other long term (current) drug therapy; D64.9 Anemia, unspecified | CPT/HCPCS: 81003; 87077; 87086; 87184 ==

== ENCOUNTER → 2021-10-05 11:29 | Outpatient (BNVA) | payer MEDICARE, MEDICAID, SELFPAY | PROVIDERS: PCP Nurse Practitioner Family; Visit Provider Orthopaedic Surgery | DX: Z48.89 Encounter for other specified surgical aftercare (principal) | CPT/HCPCS: 73552 ==

== ENCOUNTER → 2021-10-28 07:55 | Outpatient (BNVA) | payer MEDICARE, MEDICAID, SELFPAY | PROVIDERS: PCP Nurse Practitioner Family; Visit Provider Nurse Practitioner Psychiatric/Mental Health | DX: F20.0 Paranoid schizophrenia (principal); Z79.899 Other long term (current) drug therapy | CPT/HCPCS: 81003; 99214 ==

== ENCOUNTER 2021-11-01 08:06 | Observation (INO) | payer MEDICARE, MEDICAID, SELFPAY ==
[2021-11-01] VITALS (12 sets, daily range): BP systolic 102–186; BP diastolic 56–79; PULSE 46–66; RESP 14–19; TEMP 36.4–37; O2SAT 93–100
--- NOTE | 2021-11-01 08:44 | XR_ITS ---
WS: [id number] CHEST XRAY TECHNIQUE: Portable chest. CLINICAL INFORMATION: dyspnea/cough COMPARISON: April 13, 2021 FINDINGS: Heart: Cardiomegaly. Aortic calcification. Lungs: Moderate chronic emphysematous changes. No acute pulmonary infiltrates. No focal consolidation or pleural fluid. Bones: Osteopenia. Thoracic curve convex right. XR/XR chest 1V portable [id number] IMPRESSION: 1. Stable cardiomegaly. 2. Chronic emphysematous changes. Mild chronic appearing interstitial thickeni ng. 3. No acute-appearing pulmonary infiltrates.
--- NOTE | 2021-11-01 08:44 | ECG_ITS ---
[facility] Test Date: 2021-11-01 Pat Name: Montse Vu Department: Room: Gender: Female Public Works Director: : 1945 Requested By: Gregg Oates Order Number: [id number] Lauren MD: Sherrill Delgadillo M.D. Measurements Intervals [place] Rate: 61 P: 37 SD: 184 QRS: 28 QRSD: 102 T: 55 QT: 447 QTc: 451 Interpretive Statements SINUS RHYTHM Compared to ECG 04/09/2021 18:35:37 T-wave abnormality no longer present Possible ischemia no longer present Electronically Signed On 11-02-2021 7:06:02 LEASE ADMINISTRATION SUPERVISOR by Sherrill Delgadillo M.D. [email or web address]
[2021-11-01 09:30] LABS: Basophils # 0.1 10^3/uL (0.0-0.1); Basophils % 0.8 %; Eosinophils # 0.1 10^3/uL (0.0-0.8); Eosinophils % 1.3 %; Hemoglobin 11.6 g/dL (11.5-15.3); Lymphocytes # 1.6 10^3/uL (0.8-4.8); Lymphocytes % 16.9 %; Mean Corpuscular HGB Conc 32.2 g/dL (30.0-36.0); Mean Corpuscular Hemoglobin 30.4 pg (28.0-34.0); Mean Corpuscular Volume 94.5 fl (81-99); Mean Platelet Volume 11.5 fL (7.4-10.4); Monocytes # 0.9 10^3/uL (0.2-0.9); Monocytes % 9.7 %; Neutrophils % 70.9 %; Nucleated Red Blood Cells % 0 %; Platelet Count 209 10^3/cmm (130-400); Red Blood Count 3.81 10^6/uL (4.1-5.3); Red Cell Distribution Width 14.2 % (12.1-15.1); White Blood Count 9.2 10^3/uL (4.0-10.0)
--- NOTE | 2021-11-01 09:42 | W.ED.SYNCOPE ---
HPI - Syncope General: Chief Complaint: Syncope Stated Complaint: SYNCOPAL EPISODE Time Seen by Provider: 11/01/21 08:43 Source: EMS Mode of arrival: EMS History of Present Illness: 76 year old female who presents via EMS with chief complaint of syncope. History is difficult to obtain secondary to patient's hearing impairment. Per EMS, patient had 2 episodes of syncope where she fell out of her chair at [facility]. She is also complaining of right shoulder and neck pain. Patient was diagnosed with UTI and started on ciprofloxacin last night. Patient is able to tell me in the ER that she does not remember what happened after she fell. EMS reported in the field her heart rate was in the 30s and they gave a dose of atropine. Heart rate on arrival here was in the 40s and 50s while monitored. Difficult to get any further history due to her medical limitations with hearing and speech MD complaint: loss of consciousness and almost passed out (x2) Onset (ago): hour(s) Review of Systems General: Reports: ROS unobtainable due to medical condition and ROS unobtainable due to mental status PFS ED PFSH: Medical History Acquired hypothyroidism Anemia Anemia Benign hypertension Bilateral deafness CAD (coronary artery disease) COPD (chronic obstructive pulmonary disease) Essential hypertension Fixation hardware in leg Folic acid deficiency GERD (gastroesophageal reflux disease) Hx of fracture of leg Hyperlipidemia Hypertension screen Hypothyroid Iron deficiency Mixed hyperlipidemia On valproate therapy Paranoid schizophrenia Psychiatric care Supracondylar fracture of left femur Urinary tract infection Vitamin D deficiency Surgical History H/O total mastectomy of left breast Postoperative state S/P ORIF (open reduction internal fixation) fracture Status post cholecystectomy Family History Other Family history unknown Social History Alcohol intake: unknown Physical Exam Const: EXAM LIMITATIONS: other limitations (hearing impaired) GENERAL APPEARANCE: cooperative, comfortable and well kempt ORIENTATION/CONSCIOUSNESS: Yes awake HENMT: COMMON NORMALS: moist oral mucous membranes and oropharynx normal GENERAL EAR: hearing grossly impaired MOUTH: Normal oral and palatal mucosa present Eye: COMMON NORMALS: Equal, round and reactive pupils present, EOMs intact bilaterally and conjunctivae normal CONJUNCTIVA: Yes conjunctivae normal PUPIL: Yes Equal, round and reactive pupils present Neck/C-Spine: CERVICAL SPINE: Yes collar present Lymph: LYMPHATIC: no lymphadenopathy noted Resp: COMMON NORMALS: normal respiratory effort, No retractions, No use of accessory muscles and clear to auscultation bilaterally AUSCULTATION: clear to auscultation bilaterally Cardio: COMMON NORMALS: regular rhythm RATE: bradycardic RHYTHM: regular rhythm HEART SOUNDS: no murmurs GI: COMMON NORMALS: Normal to inspection, nondistended, normoactive bowel sounds present, Soft to palpation and No hepatosplenomegaly present PALPATION: Yes Soft to palpation and Yes No hepatosplenomegaly present : COMMON NORMALS: Yes no CVA tenderness BLADDER/KIDNEY EXAM: Yes no CVA tenderness Back/Pelvis: COMMON NORMALS: no CVA tenderness LUMBAR SPINE/LOWER BACK: Yes normal to inspection Extremity: COMMON NORMALS: no clubbing, cyanosis or edema, no calf tenderness and no pedal edema Psych: APPEARANCE: Yes well kempt Skin: COMMON NORMALS: no rashes or lesions noted and turgor normal GENERAL SKIN EXAM: no rashes or lesions noted and turgor normal Course Vital Signs: Vital signs: Vital Signs Temperature 97.2 F L 11/02/21 09:53 Pulse Rate 69 11/02/21 09:53 Respiratory Rate 16 11/02/21 09:53 Blood Pressure 163/58 11/02/21 09:53 Pulse Oximetry 93 11/02/21 09:53 MDM - Syncope Medical Decision Making Significant bradycardia. Patient is on amiodarone reviewing the old notes there is question whether or not the amiodarone should be continued Dr. Tierney and seen for this previously she had a Holter monitor and does not look like there is any follow-up. We will put her in on knobs hold the amiodarone to see if she needs to continue with it. Medical Records I reviewed the patient's medical records. Lab Data I reviewed the patient's lab results. : 11/02/21 02:43 11/02/21 02:43 Radiology Impressions Chest X-Ray 11/01/21 08:44 IMPRESSION: 1. Stable cardiomegaly. 2. Chronic emphysematous changes. Mild chronic appearing interstitial thickening. 3. No acute-appearing pulmonary infiltrates. Cervical Spine CT 11/01/21 10:43 IMPRESSION: No evidence of acute fracture or dislocation. Head CT 11/01/21 10:43 IMPRESSION: 1. No evidence of intracranial hemorrhage or mass effect. 2. Mild small vessel changes with moderate parenchymal volume loss. 3. No acute intracranial findings. 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 No acute abnormality. Laboratory Results WBC 9.2 10^3/uL (4.0-10.0) 11/01/21 08:30 RBC 3.81 10^6/uL (4.1-5.3) L 11/01/21 08:30 Hgb 11.6 g/dL (11.5-15.3) 11/01/21 08:30 Hct 36.0 % (37.0-47.0) L 11/01/21 08:30 MCV 94.5 fl (81-99) 11/01/21 08:30 MCH 30.4 pg (28.0-34.0) 11/01/21 08:30 MCHC 32.2 g/dL (30.0-36.0) 11/01/21 08:30 RDW 14.2 % (12.1-15.1) 11/01/21 08:30 Plt Count 209 10^3/cmm (130-400) 11/01/21 08:30 MPV 11.5 fL (7.4-10.4) H 11/01/21 08:30 Neut % (Auto) 70.9 % 11/01/21 08:30 Lymph % (Auto) 16.9 % 11/01/21 08:30 [place] % (Auto) 9.7 % 11/01/21 08:30 Eos % (Auto) 1.3 % 11/01/21 08:30 Baso % (Auto) 0.8 % 11/01/21 08:30 Neut # (Auto) 6.50 10^3/uL (1.8-7.7) 11/01/21 08:30 Lymph # (Auto) 1.6 10^3/uL (0.8-4.8) 11/01/21 08:30 [place] # (Auto) 0.9 10^3/uL (0.2-0.9) 11/01/21 08:30 Eos # (Auto) 0.1 10^3/uL (0.0-0.8) 11/01/21 08:30 Baso # (Auto) 0.1 10^3/uL (0.0-0.1) 11/01/21 08:30 Nucleated RBC % (auto) 0 % 11/01/21 08:30 Nucleated RBCs # 0.0 /100WBC 11/01/21 08:30 Sodium 135 mmol/L (136-145) L 11/01/21 08:30 Potassium 4.1 mmol/L (3.5-5.1) 11/01/21 08:30 Chloride 103 mmol/L (98-107) 11/01/21 08:30 Carbon Dioxide 23 mmol/L (22-29) 11/01/21 08:30 Anion Gap 13.1 (5-19) 11/01/21 08:30 BUN 19 mg/dL (8-23) 11/01/21 08:30 Creatinine 0.7 mg/dL (0.5-0.9) 11/01/21 08:30 GFR Calculation Not Reportable 11/01/21 08:30 Glucose 84 mg/dL (65-115) 11/01/21 08:30 Calculated Osmolality 281 mOsm/kg (285-295) L 11/01/21 08:30 Calcium 8.6 mg/dL (8.5-10.5) 11/01/21 08:30 Magnesium 2.0 mg/dL (1.7-2.3) 11/01/21 08:30 Total Bilirubin 0.3 mg/dL (0.15-1.2) 11/01/21 08:30 AST 19 U/L (0-32) 11/01/21 08:30 ALT 10 U/L (0-33) 11/01/21 08:30 Alkaline Phosphatase 83 IU/L (35-105) 11/01/21 08:30 Creatine Kinase 57 U/L (26-192) 11/01/21 08:30 Troponin T Baseline 19 ng/L (0-10) H 11/01/21 08:30 Troponin T 120 Minute 15.49 ng/L (0-10) H 11/01/21 10:30 Delta Troponin T -3.51 ABS# (0-10) L 11/01/21 10:30 Troponin T Hi Sens 6Hr 15.76 ng/L (0-10) H 11/01/21 14:30 Troponin T Hi Sens 6Hr Delta -3.24 ng/L (0-12) L 11/01/21 14:30 NT-Pro-B Natriuret Pep 852 pg/mL (0-450) H 11/01/21 08:30 Total Protein 5.8 g/dL (6.6-8.7) L 11/01/21 08:30 Albumin 3.8 g/dL (3.5-5.2) 11/01/21 08:30 Globulin 2.0 g/dL (1.3-4.6) 11/01/21 08:30 TSH 0.85 uIU/mL (0.27-4.20) 11/01/21 08:30 Urine Color Yellow (Yellow) 11/01/21 13:46 Urine Appearance Clear (CLEAR) 11/01/21 13:46 Urine pH 7 (5-7) 11/01/21 13:46 Ur Specific [place] 1.005 (1.005-1.030) 11/01/21 13:46 Urine Protein Neg (Negative) 11/01/21 13:46 Urine Glucose (UA) Norm (Normal) 11/01/21 13:46 Urine Ketones Negative (Negative) 11/01/21 13:46 Urine Blood Neg (Negative) 11/01/21 13:46 Urine Nitrate Negative (Negative) 11/01/21 13:46 Urine Bilirubin Neg (Negative) 11/01/21 13:46 Urine Urobilinogen Neg mg/dL (Negative) 11/01/21 13:46 Ur Leukocyte Esterase Negative (Negative) 11/01/21 13:46 Discharge Plan Discharge Patient Disposition: Admitted As Inpatient Admit Provider: Anthony Castillo Clinical Impression: Bradycardia, Paranoid schizophrenia, Urinary tract infection, Syncope, Hearing impaired Condition: Stable Discharge Diet: Cardiac Discharge Activity: Increase activity as tolerated Coding Level of Care Code ED Harness Builder for Chg Fwd Exam Comprehensive
[2021-11-01 10:05] LABS: Troponin(5th) Baseline 19 ng/L (0-10)
[2021-11-01 10:13] LABS: Alanine Aminotransferase 10 U/L (0-33); Albumin Level 3.8 g/dL (3.5-5.2); Alkaline Phosphatase 83 IU/L (35-105); Aspartate Amino Transferase 19 U/L (0-32); Blood Urea Nitrogen 19 mg/dL (8-23); Calcium 8.6 mg/dL (8.5-10.5); Carbon Dioxide 23 mmol/L (22-29); Chloride 103 mmol/L (98-107); Creatine Phosphokinase 57 U/L (26-192); Glucose 84 mg/dL (65-115); NT Pro B Type Natriuretic Pept 852 pg/mL (0-450); Osmolality Calculated 281 mOsm/kg (285-295); Sodium 135 mmol/L (136-145); Thyroid Stimulating Hormone 0.85 uIU/mL (0.27-4.20); Total Bilirubin 0.3 mg/dL (0.15-1.2); Total Protein 5.8 g/dL (6.6-8.7)
[2021-11-01 10:20] LABS: Anion Gap 13.1 (5-19); Potassium 4.1 mmol/L (3.5-5.1)
--- NOTE | 2021-11-01 10:43 | CT_ITS ---
WS: [id number] CT CERVICAL TRAUMA TECHNIQUE: Noncontrast CT of the cervical spine with coronal and sagittal reformatted images. CLINICAL INFORMATION: fall/trauma COMPARISON: April 09, 2021 DLP: 355.[address] scans at [facility] use at least one of these dose optimization techniques: automated e xposure control; mA and/or kV adjustment per patient size (includes targeted exams where dose is matc hed to clinical indication); or iterative reconstruction. FINDINGS: Straightening of the normal cervical lordosis. Slight anterolisthesis C3 on C4 measuring 2.3 mm. Smal l disc osteophyte complexes C4-C5 and C5-C6 with mild central canal stenosis. Mild spondylitic change s. Cervical curve convex left. Normal dens. Normal C1-2 articulation. Advanced right facet arthropath y C3-C4 C4-C5 and C5-C6. CT/CT cervical spin wo con* [id number] IMPRESSION: No evidence of acute fracture or dislocation.
--- NOTE | 2021-11-01 10:43 | CT_ITS ---
WS: [id number] CT HEAD TECHNIQUE: Noncontrast CT of the head obtained from the skullbase to the vertex. CLINICAL INFORMATION: fall/closed head injury COMPARISON: April 09, 2021 DLP: 1092.[address] scans at [facility] use at least one of these dose optimization techniques: automated e xposure control; mA and/or kV adjustment per patient size (includes targeted exams where dose is matc hed to clinical indication); or iterative reconstruction. FINDINGS: No evidence of intracranial hemorrhage or mass effect. Ventricular system and basal cisterns are maldonado nt. Mild small vessel changes with moderate parenchymal volume loss. No extra-axial fluid collections . No evidence of mass or mass effect. Intracranial vascular calcification. Paranasal sinuses and mastoid air cells are well aerated. .Normal visualized soft tissues. CT/CT head wo con* [id number] IMPRESSION: 1. No evidence of intracranial hemorrhage or mass effect. 2. Mild small vessel changes with moderate parenchymal volume loss. 3. No acute intracranial findings.
--- NOTE | 2021-11-01 10:44 | ECG_ITS ---
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 Measurements Intervals [place] Rate: 48 P: 66 DC: 163 QRS: 36 QRSD: 98 T: 66 QT: 468 QTc: 419 Interpretive Statements SINUS BRADYCARDIA LEFT VENTRICULAR HYPERTROPHY AND ST-T CHANGE [VOLTAGE CRITERIA PLUS ST/T ABNORMALITY] Compared to ECG 11/01/2021 08:42:16 Left ventricular hypertrophy now present ST (T wave) deviation now present Sinus rhythm no longer present Electronically Signed On 11-01-2021 17:12:42 PLATE GRAINER APPRENTICE by Sherrill Delgadillo M.D. [id number]
--- NOTE | 2021-11-01 10:44 | XR_ITS ---
WS: [id number] XR shoulder RT min 2V* [id number] REASON FOR EXAM: pain fall FINDINGS: Moderately decreased bone density. Mild narrowing of the acromioclavicular joint with subchondral sclerosis and marginal osteophytosis. No fracture or dislocation. Mild/moderate narrowing of the glenohumeral joint. No fracture or dislocation. 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 No acute abnor mality.
[2021-11-01 11:10] LABS: Troponin 5 2HR 15.49 ng/L (0-10)
[2021-11-01 11:11] LABS: Troponin 5 2HR Delta -3.51 ABS# (0-10)
[2021-11-01] MEDS: acetaminophen 500 mg Tablet 1000 MG PO (12:19)
[2021-11-01 14:02] LABS: Add Urine Microscopic? NO; Charge for UA Resulting for Rev
[2021-11-01 14:12] LABS: Bilirubin Urine Neg (Negative); Blood Urine Neg (Negative); Glucose Urine UA Norm (Normal); Ketones Urine Negative (Negative); Leukocyte Esterase Urine Negative (Negative); Nitrate Urine Negative (Negative); Protein Urine Neg (Negative); Specific Gravity, Urine 1.005 (1.005-1.030); Urine Appearance Clear (CLEAR); Urine Color Yellow (Yellow); Urobilinogen Urine Neg (Negative); pH Urine 7 (5-7)
--- NOTE | 2021-11-01 14:44 | ECG_ITS ---
[facility] Test Date: 2021-11-01 Pat Name: Montse Vu Department: Room: EDIP Gender: Female Composite Assembler: : 1945 Requested By: Gregg Oates Order Number: [id number] Lauren MD: Sherrill Delgadillo M.D. Measurements Intervals [place] Rate: 46 P: 62 ID: 163 QRS: 58 QRSD: 98 T: 64 QT: 477 QTc: 421 Interpretive Statements SINUS BRADYCARDIA LEFT VENTRICULAR HYPERTROPHY AND ST-T CHANGE [VOLTAGE CRITERIA PLUS ST/T ABNORMALITY] Compared to ECG 11/01/2021 10:51:52 No significant changes Electronically Signed On 11-01-2021 17:12:13 SASH INSTALLER by Sherrill Delgadillo M.D. [id number]
--- NOTE | 2021-11-01 14:56 | P.HP_ITS ---
Providers/Chief Complaint Admitting Physician: Anthony Castillo MD Primary Care Provider: JUSTINE Nash Chief Complaint: SYNCOPAL EPISODE History of Present Illness Montse Vu is a 76 year old female presenting from a detention with a syncopal episode. Apparently she fell out of a chair. It is difficult to communicate with her secondary to deafness, and mental health disorder. History was given that she recently had a UTI and was started on ciprofloxacin. I cannot obtain any further history from the patient. I have tried the detention multiple times, but just get a busy signal. From my understanding heart rate was low enough per EMS that she got a dose of atropine. The emergency department physician believes it was as low as the 30s. Since arrival to the e mergency department she has been 40s to 50s. She has seen cardiology in the past, for arrhythmia for which she has been on amiodarone. There was consideration of discontinuing this. Review of Systems General: Reports: ROS unobtainable due to medical condition (Deafness, schizophrenia) Medications/Allergies Home Medications Medication Instructions Recorded Confirmed Last Taken Type aspirin 81 mg tablet,delayed 81 mg PO DAILY@10/28/19 11/01/21 10/31/21 History release (Adult Low Dose Aspirin) ferrous sulfate 325 mg (65 mg 325 mg PO DAILY@10/28/19 11/01/21 10/31/21 History iron) tablet multivitamin 1 tab PO DAILY@10/28/19 11/01/21 04/09/21 07:00 History nitroglycerin 0.4 mg sublingual 0.4 mg SUBLINGUAL Q5M PRN #30 tab 12/14/20 11/01/21 Unknown Rx tablet fluticasone furoate 200 1 inh INHALATION DAILY@04/09/21 11/01/21 10/31/21 History mcg-vilanterol 25 mcg/dose inhalation powder (Breo Ellipta) levothyroxine 25 mcg tablet 25 mcg PO DAILY@04/09/21 11/01/21 04/08/21 History montelukast 10 mg tablet 10 mg PO DAILY@04/09/21 11/01/21 04/08/21 History pantoprazole 40 mg tablet,delayed See Rx Instructions .ROUTE 07/29/21 11/01/21 Unknown Rx release .COMPLEX #90 tablet ibuprofen 600 mg tablet See Rx Instructions .ROUTE 12/27/21 02/01/22 Unknown Rx .COMPLEX #90 tab divalproex 250 mg tablet,extended 250 mg PO BID #60 tab 10/28/21 11/01/21 10/31/21 Rx release 24 hr (Depakote ER) fluoxetine 20 mg capsule (Prozac) 20 mg PO QAM #30 cap 10/28/21 11/01/2110/31 Rx haloperidol 2 mg tablet 2 mg PO BID PRN #60 tab 10/28/21 11/01/21 Unknown Rx lorazepam 0.5 mg tablet (Ativan) 0.25 mg PO BID PRN #30 tab 10/28/21 11/01/21 Unknown Rx ciprofloxacin HCl 250 mg tablet 250 mg PO BID 3 Days #6 tab 10/31/21 11/01/21 10/31/21 Rx (Cipro) amiodarone 200 mg tablet 100 mg PO DAILY@0600 11/01/21 11/01/21 10/31/21 History perphenazine 2 mg tablet 6 mg PO DAILY 11/01/21 11/01/21 Unknown History simvastatin 20 mg tablet 20 mg PO DAILY 11/01/21 11/01/21 Unknown History Allergies Allergy/AdvReac Type Severity Reaction Status Date / Time beta blockers Allergy Unknown Uncoded 07/19/21 09:48 PFSH Acute PFSH: Medical History (Updated 11/01/21 @ 15:12 by Anthony Castillo MD) Acquired hypothyroidism Anemia Anemia Benign hypertension Bilateral deafness CAD (coronary artery disease) COPD (chronic obstructive pulmonary disease) Essential hypertension Fixation hardware in leg Folic acid deficiency GERD (gastroesophageal reflux disease) Hx of fracture of leg Hyperlipidemia Hypertension screen Hypothyroid Iron deficiency Mixed hyperlipidemia On valproate therapy Paranoid schizophrenia Psychiatric care Supracondylar fracture of left femur Urinary tract infection Vitamin D deficiency Surgical History (Updated 11/01/21 @ 15:12 by Anthony Castillo MD) H/O total mastectomy of left breast Postoperative state S/P ORIF (open reduction internal fixation) fracture Status post cholecystectomy Family History Other Family history unknown Social History Alcohol intake: unknown Other PFSH information: Difficult to obtain history secondary to deafness, schizophrenia Vitals/I&O/Wt Last Vital Signs Temp 97.5 F L 11/01/21 08:14 Pulse 50 L 11/01/21 14:20 Resp 17 11/01/21 14:20 BP 182/62 11/01/21 14:20 Pulse Ox 99 11/01/21 13:44 Physical Exam Narrative: EXAM NARRATIVE: General exam no distress HEENT: atraumatic normal cephalic, oropharynx clear Neck supple without LAD, thyromagaly CV: RRR without murmur Lungs CTAB without wheezing, crackles Abdomen soft with postiive bowel sounds. No obvious organomegaly. deferred Ext no C/C/E, cap refill brisk. Skin no rash Neuro no obvious defects. Urinary Catheter Management: Velázquez: Cath Placed During This Visit: yes Urinary Catheter Date of Insertion: 11/01/21 Urinary Catheter Time of Insertion: 13:47 Data : 11/01/21 08:30 11/01/21 08:30 Other Labs: Magnesium normal, calcium normal, LFTs normal. Troponin XIX at baseline with 120-minute troponin of 15 Urinalysis negative Shoulder x-ray, head CT, cervical spine CT, chest x-ray all without acute findings EKG sinus rhythm, normal axis, rate of 61, another EKG with a rate of 48 sinus bradycardia. A&P Assessment and plan (1) Syncope: Concerned this may have been driven by bradycardia. She has had no recurrence here Imaging test negative Continue to monitor heart rhythm on CSU, telemetry Hydrate Check orthostatics Status: Acute (2) Bradycardia: Discontinue amiodarone. Indication not clear. Electrolytes, TSH, magnesium normal Received atropine in the field for heart rate in the 30s On no other medications which could cause other than amiodarone. Check echocardiogram Status: Acute (3) Arrhythmia: Unknown primary arrhythmia. Has seen cardiology, Dr. Tierney, in the past. It appears he was trying to eliminate amiodarone. Status: Acute Qualifiers: Arrhythmia type: unspecified cardiac arrhythmia Qualified Code(s): I49.9 - Cardiac arrhythmia, unspecified (4) COPD (chronic obstructive pulmonary disease): No evidence of exacerbation Status: Acute Qualifiers: COPD type: unspecified COPD Qualified Code(s): J44.9 - Chronic obstr uctive pulmonary disease, unspecified (5) Paranoid schizophrenia: Stable per detention Status: Chronic (6) CAD (coronary artery disease): Troponin without significant delta Status: Acute Attestations Medical Necessity Statement*: Will need less than 2 midnight stay for evaluation of syncope Coding Level of Care Code Acute Lens Mold Setter for g Fwd Diagnoses Syncope R55 Bradycardia R00.1 Arrhythmia I49.9 Arrhythmia type: unspecified cardiac arrhythmia COPD (chronic obstructive pulmonary disease) J44.9 COPD type: unspecified COPD Paranoid schizophrenia F20.0 CAD (coronary artery disease) I25.10 Comment Greater than 35 minutes spent in evaluation and treatment during
[2021-11-01 15:12] LABS: Troponin 5 6HR 15.76 ng/L (0-10)
[2021-11-01 15:14] LABS: Troponin 5 6HR Delta -3.24 ng/L (0-12)
--- NOTE | 2021-11-01 15:20 | USCV_ITS ---
Montse Vu Age: 76 Gender: F : 1945 Exam Date: 11/01/2021 16:50 Ordering Phys: Anthony Castillo MD Technologist: Alex Edwards Exam Location: [facility] [place] Indication: ARRHYTHMIA BP: 178 / 67 HR: 55 Rhythm: Sinus Technical Quality: Adequate MEASUREMENTS (Male / Female) Normal Values 2D ECHO LV Diastolic Diameter PLAX 3.1 cm 4.2 - 5.9 / 3.9 - 5.3 cm LV Systolic Diameter PLAX 2.2 cm IVS Diastolic Thickness 1.0 cm 0.6 - 1.0 / 0.6 - 0.9 cm IVS Systolic Thickness 1.4 cm LVPW Diastolic Thickness 1.4 cm 0.6 - 1.0 / 0.6 - 0.9 cm LVPW Systolic Thickness 1.6 cm LVOT Diameter 2.0 cm LV Ejection Fraction 2D Teich 59.1 % LV Ejection Fraction MOD 2C 67.4 % LV Ejection Fraction 2C AL 68.4 % LA Diameter 3.8 cm LA Width 3.3 cm LA Height 5.1 cm RA Width 0.0 cm RA Height 0.0 cm Aorta at Sinotubular Diameter 2.3 cm M-MODE Aortic Annulus Diameter 2.8 cm LA Ao Ratio MM 1.4 MV E Point Septal Separation 0.6 cm DOPPLER AV Peak Velocity 251.0 cm/s LVOT Peak Velocity 160.0 cm/s AV Area Cont Eq vti 2.1 cm squared AV Area Cont Eq pk 2.0 cm squared MV E' Velocity 12.0 cm/s TR Peak Velocity 306.3 cm/s TR Peak Gradient 37.5 mmHg TR Mean Velocity 243.1 cm/s TR Mean Gradient 24.5 mmHg TR Velocity Time Integral 97.3 cm Right Atrial Pressure 3.0 mmHg Pulmonary Artery Systolic Pressu 40.5 mmHg RV Acceleration Time 0.1 s RV Ejection Time 0.3 s RV AcT/ET 0.3 FINDINGS Left Ventricle Normal left ventricular size. LV systolic function is normal with EF of 55-60%. No regional wall motion abnormalities. Grade 1 diastolic dysfunction Right Ventricle The right ventricle is normal in size and function. Right Atrium The right atrium is normal in size. Left Atrium The left atrium is normal in size. Mitral Valve Mild mitral annular calcification. There is mild mitral regurgitation. Aortic Valve Aortic valve is thickened. Mild aortic stenosis was noted with mean gradient across aortic valve of 12 mmHg and aortic valve area of 2 cm2 Tricuspid Valve Structurally normal tricuspid valve without significant stenosis. Mild tricuspid regurgitation. Insufficient TR jet to calculate RVSP. Pulmonic Valve Grossly normal Pericardium Normal pericardium without effusion. Aorta Normal ascending aorta dimension. CONCLUSIONS LV systolic function is normal with EF of 55-60%. Grade 1 diastolic dysfunction. Mild mitral regurgitation. Mild mitral annular calcification. Aortic valve is thickened. Mild aortic stenosis. Mild tricuspid regurgitation. Compared to prior echocardiogram from 04/08/2015, no significant changes are noted. Demarcus Rene MD (Electronically Signed) Final Date: 02 November 2021 09:23 S
[2021-11-01] MEDS: sodium chloride 0.9% 1,000 ML 75 ML IV (16:01)
[2021-11-01] MEDS: enoxaparin 30 mg/0.3 mL Syringe SUBCUT (16:01)
[2021-11-01] MEDS: pantoprazole DR 40 mg Tablet PO (18:11)
[2021-11-01] MEDS: acetaminophen 325 mg Tablet 650 MG PO (18:11)
--- NOTE | 2021-11-01 18:14 | PM.CONSULT ---
Providers/Reason For Consult Consulting Physician/Specialty*: Demarcus Rene MD/ Cardiology Reason for Consult*: Syncope/bradycardia Requesting Physician: Dr Ramírez Attending Physician: Anthony Castillo MD Primary Care Provider: JUSTINE Nash History of Present Illness History of Present Illness Montse Vu is a 76 year old female with past medical history of schizophrenia, cardiac arrhythmia( unknown) on amiodarone, coronary artery disease with prior PCI of LAD done in remote past, hypertension, hypothyroidism who presented with a syncopal episode at a longterm. Patient is very hard of hearing and has mental health disorder. Unable to obtain meaningful history. After the syncopal episode, EMS found her to have sinus bradycardia and dose of atropine was given. Her heart rate was in 30s at the time. Since arrival to the emergency room it is in the 40s to 50s. Sinus bradycardia was noted on EKG. Review of Systems General: Reports: ROS unobtainable due to medical condition (Deafness, schizophrenia) Medications/Allergies Home Medications Medication Instructions Recorded Confirmed Last Taken Type aspirin 81 mg tablet,delayed 81 mg PO DAILY@10/28/19 11/01/21 10/31/21 History release (Adult Low Dose Aspirin) ferrous sulfate 325 mg (65 mg 325 mg PO DAILY@10/28/19 11/01/21 10/31/21 History iron) tablet multivitamin 1 tab PO DAILY@10/28/19 11/01/21 04/09/21 07:00 History nitroglycerin 0.4 mg sublingual 0.4 mg SUBLINGUAL Q5M PRN #30 tab 12/14/20 11/01/21 Unknown Rx tablet fluticasone furoate 200 1 inh INHALATION DAILY@04/09/21 11/01/21 10/31/21 History mcg-vilanterol 25 mcg/dose inhalation powder (Breo Ellipta) levothyroxine 25 mcg tablet 25 mcg PO DAILY@04/09/21 11/01/21 04/08/21 History montelukast 10 mg tablet 10 mg PO DAILY@04/09/21 11/01/21 04/08/21 History pantoprazole 40 mg tablet,delayed See Rx Instructions .ROUTE 07/29/21 11/01/21 Unknown Rx release .COMPLEX #90 tablet ibuprofen 600 mg tablet See Rx Instructions .ROUTE 09/26/21 11/01/21 Unknown Rx .COMPLEX #90 tab divalproex 250 mg tablet,extended 250 mg PO BID #60 tab 10/28/21 11/01/21 10/31/21 Rx release 24 hr (Depakote ER) fluoxetine 20 mg capsule (Prozac) 20 mg PO QAM #30 cap 10/28/21 11/01/21 10/31/21 Rx haloperidol 2 mg tablet 2 mg PO BID PRN #60 tab 10/28/21 11/01/21 Unknown Rx lorazepam 0.5 mg tablet (Ativan) 0.25 mg PO BID PRN #30 tab 10/28/21 11/01/21 Unknown Rx ciprofloxacin HCl 250 mg tablet 250 mg PO BID 3 Days #6 tab 10/31/21 11/01/21 10/31/21 Rx (Cipro) amiodarone 200 mg tablet 100 mg PO DAILY@0600 11/01/21 11/01/21 10/31/21 History perphenazine 2 mg tablet 6 mg PO DAILY 11/01/21 11/01/21 Unknown History simvastatin 20 mg tablet 20 mg PO DAILY 11/01/21 11/01/21 Unknown History Allergies Allergy/AdvReac Type Severity Reaction Status Date / Time beta blockers Allergy Unknown Uncoded 07/19/21 09:48 Current Medications Generic Name Dose Route Start Last Admin Trade Name Freq PRN Reason Stop Dose Admin Acetaminophen 650 mg 11/01/21 14:14 11/01/21 18:11 Acetaminophen 325 Mg Tablet PO 650 mg Q6H PRN Administration Mild/Mod Pain Or Temp >/= 101 Enoxaparin Sodium 30 mg 11/01/21 15:15 11/01/21 16:01 Enoxaparin 30 Mg/0.3 Ml Syringe SUBCUT 30 mg Q24H AYLA Administration Sodium Chloride 1,000 mls @ 75 mls/hr 11/01/21 15:15 11/01/21 16:01 Sodium Chloride 0.9% IV 75 mls/hr .[id number] AYLA Administration Pantoprazole Sodium 40 mg 11/01/21 15:30 11/01/21 18:[address] 40 Mg Tablet PO 40 mg QD AYLA Administration PFSH Acute PFSH: Medical History Acquired hypothyroidism Anemia Anemia Benign hypertension Bilateral deafness CAD (coronary artery disease) COPD (chronic obstructive pulmonary disease) Essential hypertension Fixation hardware in leg Folic acid deficiency GERD (gastroesophageal reflux disease) Hx of fracture of leg Hyperlipidemia Hypertension screen Hypothyroid Iron deficiency Mixed hyperlipidemia On valproate therapy Paranoid schizophrenia Psychiatric care Supracondylar fracture of left femur Urinary tract infection Vitamin D deficiency Surgical History H/O total mastectomy of left breast Postoperative state S/P ORIF (open reduction internal fixation) fracture Status post cholecystectomy Family History Other Family history unknown Social History Alcohol intake: unknown Vitals/I&O/Wt Last Vital Signs Temp 98.6 F 11/01/21 15:48 Pulse 49 L 11/01/21 17:40 Resp 17 11/01/21 17:40 BP 178/67 11/01/21 15:48 Pulse Ox 98 11/01/21 17:40 Weight last 48 hrs Weight 150 lb Physical Exam Narrative: EXAM NARRATIVE: GENERAL: Patient is alert, unable to assess orientation because of patient's deafness and mental health disorder. NECK: No jugular vein distension. [] HEENT: No cyanosis. No icterus. No pallor. [] HEART: Regular S1 and S2. No murmur, rub or gallop. [] LUNGS: Clear to auscultate bilaterally. [] ABDOMEN: Soft, nontender and nondistended. Positive bowel sounds. No guarding, rebound or tenderness. [] CENTRAL NERVOUS SYSTEM: Grossly nonfocal. [] EXTREMITIES: Lower extremities with no edema bilaterally. Pulses palpable in the lower extremities, both dorsalis pedis and posterior tibial. [] Urinary Catheter Management: Velázquez: Cath Placed During This Visit: yes Urinary Catheter Date of Insertion: 11/01/21 Urinary Catheter Time of Insertion: 13:47 Data : 11/02/21 02:43 11/02/21 02:43 A&P Assessment and plan (1) Syncope: Status: Acute (2) Bradycardia: Status: Acute (3) Benign hypertension: Status: Acute (4) Hypothyroid: Status: Acute (5) Paranoid schizophrenia: Status: Chronic (6) CAD (coronary artery disease): Status: Acute Plan Patient has presented with a syncopal episode however his history is not clear. She was found to be in sinus bradycardia. No AV block or pauses were noted. She had prior event monitor that revealed sinus bradycardia but no pauses or AV block at that time. Hold all rate controlling medications including amiodarone. Telemetry monitoring for now. Monitor electrolytes. No indication for pacemaker at this time. Patient may benefit from another event monitor at time of discharge. Thank you for involving us with care of this patient. We will continue to follow. 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
--- NOTE | 2021-11-01 19:35 | PC.NURSE ---
Received report from JUAN Wong. Patient resting in bed watching tv. Patient is deaf and unable to speak clearly. Patient has writing material at bedside for communication. Patient c/o mild pain to bilateral sides under arms. No other distress observed. Will continue to monitor.
--- NOTE | 2021-11-01 19:40 | PC.NURSE ---
Shift Note Frequent safety and comfort rounds continue. Orders and/or nursing care completed as indicated. Patient monitored for response to intervention and treatment(s). Education provided includes fluids, cardiology consult for bradycardia. Patient and/or accounting representative verbalizes understanding. Will continue to monitor.
[2021-11-01] MEDS: levothyroxine 25 mcg Tablet PO (20:25)
[2021-11-01] MEDS: divalproex ER 250 mg Tablet (24H) PO (20:25)
[2021-11-02] VITALS (7 sets, daily range): BP systolic 132–163; BP diastolic 58–69; PULSE 58–69; RESP 12–16; TEMP 36.2–36.6; O2SAT 91–93
[2021-11-02 03:38] LABS: Basophils # 0.1 10^3/uL (0.0-0.1); Basophils % 0.9 %; Eosinophils # 0.3 10^3/uL (0.0-0.8); Eosinophils % 3.2 %; Hematocrit 32.1 % (37.0-47.0); Hemoglobin 10.7 g/dL (11.5-15.3); Lymphocytes # 3.6 10^3/uL (0.8-4.8); Lymphocytes % 46.2 %; Mean Corpuscular HGB Conc 33.3 g/dL (30.0-36.0); Mean Platelet Volume 11.3 fL (7.4-10.4); Monocytes # 0.9 10^3/uL (0.2-0.9); Monocytes % 10.9 %; Neutrophils # 3.04 10^3/uL (1.8-7.7); Neutrophils % 38.5 %; Nucleated Red Blood Cells % 0 %; Platelet Count 241 10^3/cmm (130-400); Red Blood Count 3.45 10^6/uL (4.1-5.3); Red Cell Distribution Width 14.6 % (12.1-15.1); White Blood Count 7.9 10^3/uL (4.0-10.0)
[2021-11-02 04:25] LABS: Alanine Aminotransferase 10 U/L (0-33); Albumin Level 3.3 g/dL (3.5-5.2); Alkaline Phosphatase 86 IU/L (35-105); Anion Gap 14.1 (5-19); Aspartate Amino Transferase 17 U/L (0-32); Blood Urea Nitrogen 21 mg/dL (8-23); Calcium 7.9 mg/dL (8.5-10.5); Carbon Dioxide 22 mmol/L (22-29); Chloride 104 mmol/L (98-107); Glucose 77 mg/dL (65-115); Osmolality Calculated 284 mOsm/kg (285-295); Potassium 4.1 mmol/L (3.5-5.1); Sodium 136 mmol/L (136-145); Total Bilirubin 0.2 mg/dL (0.15-1.2); Total Protein 5.3 g/dL (6.6-8.7)
[2021-11-02] MEDS: sodium chloride 0.9% 1,000 ML 75 ML IV (05:16)
[2021-11-02] MEDS: fluoxetine 20 mg Capsule PO (05:17)
[2021-11-02] MEDS: aspirin 81 mg EC Tablet PO (05:17)
--- NOTE | 2021-11-02 08:24 | P.PN_ITS ---
Subjective Subjective: Interval history: Patient is feeling better. Denies any complaints. Vitals/I&O/Wt Last Vital Signs Temp 98 F 11/02/21 03:23 Pulse 69 11/02/21 07:53 Resp 16 11/02/21 07:53 BP 137/59 11/02/21 03:25 Pulse Ox 93 11/02/21 07:53 11/01/21 11/02/21 11/02/21 22:59 06:59 14:59 Intake Total 600 / 600 1093.75 / 1693.75 Output Total 750 / 750 Balance 600 / 600 343.75 / 943.75 Weight last 48 hrs Weight 145 lb Weight 150 lb Physical Exam Narrative: EXAM NARRATIVE: GENERAL: Patient is alert, unable to assess orientation because of patient's deafness and mental health disorder. NECK: No jugular vein distension. [] HEENT: No cyanosis. No icterus. No pallor. [] HEART: Regular S1 and S2. No murmur, rub or gallop. [] LUNGS: Clear to auscultate bilaterally. [] ABDOMEN: Soft, nontender and nondistended. Positive bowel sounds. No guarding, rebound or tenderness. [] CENTRAL NERVOUS SYSTEM: Grossly nonfocal. [] EXTREMITIES: Lower extremities with no edema bilaterally. Pulses palpable in the lower extremities, both dorsalis pedis and posterior tibial. [] Urinary Catheter Management: Velázquez: Cath Placed During This Visit: yes Reason for Continuing Indwelling Catheter: Acute Urinary Retention or Obstruction Urinary Catheter Date of Insertion: 11/01/21 Urinary Catheter Time of Insertion: 13:47 Data : 11/02/21 02:43 11/02/21 02:43 A&P Assessment and plan (1) Bradycardia: Status: Acute (2) Syncope: Status: Acute (3) Benign hypertension: Status: Acute (4) Hypothyroid: Status: Acute (5) Paranoid schizophrenia: Status: Chronic (6) CAD (coronary artery disease): Status: Acute Plan Patient presented with a syncopal episode however his history is not clear. She was found to be in sinus bradycardia. No AV block or pauses were noted. She had prior event monitor that revealed sinus bradycardia but no pauses or AV block at that time. Stop amiodarone No significant abnormalities on telemetry monitoring. No indication for pacemaker at this time. Can put on an event monitor as an outpatient Thank you for involving us with care of this patient. Patient is stable to be discharged from cardiology standpoint. Please call with questions Attestations Medical Necessity Statement*: Care expected to cross two midnights. 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
--- NOTE | 2021-11-02 08:59 | PC.CHAP ---
Pastoral Care Encounter/Spiritual Assessment Type of Contact [] Declined cotton buyer visit [] Patient/Family/Request visit [] Outpatient visit [] Follow-up visit [] Physician referral [] Code/Alert [x] Routine visit [] Staff referral [] Actively dying [] Patient sleeping [] Family support [] [] Out of room [] Palliative care [] [] Receiving care in room [] Pre-surgical visit [] Trauma [] Long length of stay [] ICU visit [] Other: Relational/Emotional Strength [] Patient feels connected with others/family/visitors/staff [] Distress [] Loneliness/isolation [] Abandonment Spirituality of Patient [] Person of Tracie [] Attends Mormon of their Tracie [] Believes in Prayer [] Reads Bible or Judaism materials [] There are Spiritual issues to be addressed Dispatcher Refinery Interventions [x] Prayer [] Active listening [] Non-anxious presence [] Spiritual/emotional support [] Crisis/trauma care [] Spiritual counseling [] Bereavement support [] Provided bereavement packet [] Provided Bible/devotional materials [] Provided toy/stuffed animal, coloring book to patient or family member [] Provided Communion [] Anointing/[place] [] Salvation [x] Completed spiritual assessment [] Other: Impact on Illness or Injury [] Angry [] Fearful [] Anxious [] Often cries [] Exhaustion [] Unable to work [] Unable to attend jewish [] Unable to walk/stand [] Unable to read [] Unable to drive [] Unable to eat/drink [] Unable to sleep [] Unable to be with family [] Patient intubated [] Other: Summary patient having breakfast... patient deaf hard of hearing... removed my mask to pray and speak to her.... Time spent with patient 5 min
--- NOTE | 2021-11-02 09:40 | PM.DCS ---
Discharge Providers Date of Admission: 11/01/21 15:05 Date of Discharge: November 02, 2021 Attending Provider at Admission: nAthony Castillo MD Attending Provider at Discharge: Anthony Castillo MD Primary Care Provider: JUSTINE Nash Diagnoses at Discharge Discharge Diagnosis (1) Syncope: Status: Acute (2) Bradycardia: Status: Acute (3) Benign hypertension: Status: Acute (4) Hypothyroid: Status: Acute (5) Paranoid schizophrenia: Status: Chronic (6) CAD (coronary artery disease): Status: Acute Reason for Visit Reason for Visit: SYNCOPAL EPISODE Hospital Course Hospital Course Montse presented to the hospital with a syncopal episode. Apparently on arrival, she had a heart rate of around 30 and EMS gave a dose of atropine. Here in the hospital only sinus bradycardia was noted 40 or greater. She was asymptomatic. Electrolytes including magnesium were normal. She had recently been on an antibiotic, ciprofloxacin for, for UTI. Troponin did not have significant delta. She was placed under observation and an echocardiogram was performed which demonstrated preserved EF, mild aortic stenosis. Cardiology was consulted, and they recommended stopping amiodarone. This was discontinued and patient was monitored overnight. She had no pauses. Heart rate was low 40s when sleeping and asymptomatic, increasing appropriately to 70s when awake. It was thought she could be discharged home with cardiology follow-up and an event monitor. This was arranged. Physical Exam Narrative: EXAM NARRATIVE: General exam no distress Neck is supple Cardiovascular regular rate and rhythm with a 2/6 systolic murmur Lungs clear Abdomen is soft, positive bowel sounds Extremities no cyanosis clubbing or edema Urinary Catheter Management: Velázquez: Cath Placed During This Visit: yes Reason for Continuing Indwelling Catheter: Acute Urinary Retention or Obstruction Urinary Catheter Date of Insertion: 11/01/21 Urinary Catheter Time of Insertion: 13:47 Discharge Data Studies Completed and Pending Completed Studies During Hospitalization Category Date Time Status CT cervical spin wo con* [id number] Stat Cat Scan 11/01/21 10:[address] head wo con* [id number] Stat Cat Scan 11/01/21 10:43 Completed XR chest 1V portable [id number] Stat Exams 11/01/21 08:44 Completed XR shoulder RT min 2V* [id number] Stat Exams 11/01/21 10:44 Completed CV. echo complete* [id number] Routine Ultrasound 11/01/21 15:20 Completed Radiology Impressions Chest X-Ray 11/01/21 08:44 IMPRESSION: 1. Stable cardiomegaly. 2. Chronic emphysematous changes. Mild chronic appearing interstitial thickening. 3. No acute-appearing pulmonary infiltrates. Cervical Spine CT 11/01/21 10:43 IMPRESSION: No evidence of acute fracture or dislocation. Head CT 11/01/21 10:43 IMPRESSION: 1. No evidence of intracranial hemorrhage or mass effect. 2. Mild small vessel changes with moderate parenchymal volume loss. 3. No acute intracranial findings. 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 No acute abnormality. Laboratory Results WBC 7.9 10^3/uL (4.0-10.0) 11/02/21 02:43 RBC 3.45 10^6/uL (4.1-5.3) L 11/02/21 02:43 Hgb 10.7 g/dL (11.5-15.3) L 11/02/21 02:43 Hct 32.1 % (37.0-47.0) L 11/02/21 02:43 MCV 93.0 fl (81-99) 11/02/21 02:43 MCH 31.0 pg (28.0-34.0) 11/02/21 02:43 MCHC 33.3 g/dL (30.0-36.0) 11/02/21 02:43 RDW 14.6 % (12.1-15.1) 11/02/21 02:43 Plt Count 241 10^3/cmm (130-400) 11/02/21 02:43 MPV 11.3 fL (7.4-10.4) H 11/02/21 02:43 Neut % (Auto) 38.5 % 11/02/21 02:43 Lymph % (Auto) 46.2 % 11/02/21 02:43 Cole % (Auto) 10.9 % 11/02/21 02:43 Eos % (Auto) 3.2 % 11/02/21 02:43 Baso % (Auto) 0.9 % 11/02/21 02:43 Neut # (Auto) 3.04 10^3/uL (1.8-7.7) 11/02/21 02:43 Lymph # (Auto) 3.6 10^3/uL (0.8-4.8) 11/02/21 02:43 Cole # (Auto) 0.9 10^3/uL (0.2-0.9) 11/02/21 02:43 Eos # (Auto) 0.3 10^3/uL (0.0-0.8) 11/02/21 02:43 Baso # (Auto) 0.1 10^3/uL (0.0-0.1) 11/02/21 02:43 Nucleated RBC % (auto) 0 % 11/02/21 02:43 Nucleated RBCs # 0.0 /100WBC 11/02/21 02:43 Sodium 136 mmol/L (136-145) 11/02/21 02:43 Potassium 4.1 mmol/L (3.5-5.1) 11/02/21 02:43 Chloride 104 mmol/L (98-107) 11/02/21 02:43 Carbon Dioxide 22 mmol/L (22-29) 11/02/21 02:43 Anion Gap 14.1 (5-19) 11/02/21 02:43 BUN 21 mg/dL (8-23) 11/02/21 02:43 Creatinine 0.6 mg/dL (0.5-0.9) 11/02/21 02:43 GFR Calculation Not Reportable 11/02/21 02:43 Glucose 77 mg/dL (65-115) 11/02/21 02:43 Calculated Osmolality 284 mOsm/kg (285-295) L 11/02/21 02:43 Calcium 7.9 mg/dL (8.5-10.5) L 11/02/21 02:43 Magnesium 2.0 mg/dL (1.7-2.3) 11/01/21 08:30 Total Bilirubin 0.2 mg/dL (0.15-1.2) 11/02/21 02:43 AST 17 U/L (0-32) 11/02/21 02:43 ALT 10 U/L (0-33) 11/02/21 02:43 Alkaline Phosphatase 86 IU/L (35-105) 11/02/21 02:43 Creatine Kinase 57 U/L (26-192) 11/01/21 08:30 Troponin T Baseline 19 ng/L (0-10) H 11/01/21 08:30 Troponin T 120 Minute 15.49 ng/L (0-10) H 11/01/21 10:30 Delta Troponin T -3.51 ABS# (0-10) L 11/01/21 10:30 Troponin T Hi Sens 6Hr 15.76 ng/L (0-10) H 11/01/21 14:30 Troponin T Hi Sens 6Hr Delta -3.24 ng/L (0-12) L 11/01/21 14:30 NT-Pro-B Natriuret Pep 852 pg/mL (0-450) H 11/01/21 08:30 Total Protein 5.3 g/dL (6.6-8.7) L 11/02/21 02:43 Albumin 3.3 g/dL (3.5-5.2) L 11/02/21 02:43 Globulin 2.0 g/dL (1.3-4.6) 11/02/21 02:43 TSH 0.85 uIU/mL (0.27-4.20) 11/01/21 08:30 Urine Color Yellow (Yellow) 11/01/21 13:46 Urine Appearance Clear (CLEAR) 11/01/21 13:46 Urine pH 7 (5-7) 11/01/21 13:46 Ur Specific [place] 1.005 (1.005-1.030) 11/01/21 13:46 Urine Protein Neg (Negative) 11/01/21 13:46 Urine Glucose (UA) Norm (Normal) 11/01/21 13:46 Urine Ketones Negative (Negative) 11/01/21 13:46 Urine Blood Neg (Negative) 11/01/21 13:46 Urine Nitrate Negative (Negative) 11/01/21 13:46 Urine Bilirubin Neg (Negative) 11/01/21 13:46 Urine Urobilinogen Neg mg/dL (Negative) 11/01/21 13:46 Ur Leukocyte Esterase Negative (Negative) 11/01/21 13:46 Vitals Last Vital Signs Temp 98 F 11/02/21 03:23 Pulse 69 11/02/21 07:53 Resp 16 11/02/21 07:53 BP 137/59 11/02/21 03:25 Pulse Ox 93 11/02/21 07:53 Discharge Plan Discharge Patient Disposition: Home Condition: Stable Prescriptions: Continued aspirin [Adult Low Dose Aspirin] 81 mg tablet,delayed release (DR/EC) 81 mg PO DAILY@06 0RF ferrous sulfate 325 mg (65 mg iron) tablet 325 mg PO DAILY@06 0RF multivitamin Tablet 1 tab PO DAILY@06 0RF divalproex [Depakote ER] 250 mg tablet extended release 24 hr 250 mg PO BID Qty: 60 6RF Rx Instructions: Take one tablet twice per day fluoxetine [Prozac] 20 mg capsule 20 mg PO QAM Qty: 30 6RF Rx Instructions: Take one capsule every morning haloperidol 2 mg tablet 2 mg PO BID PRN (Reason: agitation) Qty: 60 3RF Rx Instructions: for acute severe agitation lorazepam [Ativan] 0.5 mg tablet 0.25 mg PO BID PRN (Reason: anxiety) Qty: 30 3RF nitroglycerin 0.4 mg tablet, sublingual 0.4 mg SUBLINGUAL Q5M PRN (Reason: Chest Pain) Qty: 30 0RF pantoprazole 40 mg tablet,delayed release (DR/EC) See Rx Instructions .ROUTE .COMPLEX Qty: 90 3RF Dose Instruction: TAKE ONE TABLET BY MOUTH EVERY DAY Rx Instructions: TAKE ONE TABLET BY MOUTH EVERY DAY perphenazine 2 mg tablet 6 mg PO DAILY 0RF Rx Instructions: Take three tablets every morning simvastatin 20 mg tablet 20 mg PO DAILY 0RF levothyroxine 25 mcg tablet 25 mcg PO DAILY@21 0RF montelukast 10 mg tablet 10 mg PO DAILY@21 0RF Breo Ellipta 200-25 mcg/dose blister with device 1 inh inhalation DAILY@06 0RF Discontinued ibuprofen 600 mg tablet See Rx Instructions .ROUTE .COMPLEX Qty: 90 3RF Dose Instruction: TAKE ONE TABLET BY MOUTH THREE TIMES DAILY Rx Instructions: TAKE ONE TABLET BY MOUTH THREE TIMES DAILY ciprofloxacin HCl [Cipro] 250 mg tablet 250 mg PO BID 3 Days Qty: 6 0RF amiodarone 200 mg tablet 100 mg PO DAILY@0600 0RF Discharge Orders: Discharge Order (Routine); Ordered 11/02/21 Ordered By: Anthony Castillo Other Ambulatory Orders: MCT/Event Monitor 21 Days (Routine) Timeframe: 1 Day Facility: [facility] - Location: Radiology Ordered By: Anthony Castillo Referrals: Erin Tierney MD [Physician] - 11/16/21 12:45 pm (Follow-up syncope, arrhythmia) KOSTAS Pereira, CUTTING AND CREASING PRESS OPERATOR [Primary Care Provider] - 11/07/21 10:15 am Discharge Diet: Cardiac Discharge Activity: Increase activity as tolerated Patient Instructions: Bradycardia, Syncope, Opioid Safety Activity Restrictions/Additional Instructions: Take all medicine as prescribed. return for any concerns Encourage hydration. Stop Amiodarone The heart monitor will be mailed to your home to be placed. Discharge Attestations Time Spent in Discharge Care*: greater than 30 min Quality Metrics Clinical Quality Measures [ No reported AMI, CVA or VTE this stay] Coding Level of Care Code Acute Chg FW DC note Diagnoses Syncope R55 Bradycardia R00.1 Benign hypertension I10 Hypothyroid E03.9 Paranoid schizophrenia F20.0 CAD (coronary artery disease) I25.10
[2021-11-02] MEDS: atorvastatin 40 mg Tablet 20 MG PO (09:53)
[2021-11-02] MEDS: perphenazine 4 mg Tablet 6 MG PO (09:55)
[2021-11-02] MEDS: divalproex ER 250 mg Tablet (24H) PO (09:55)
== END 2021-11-02 11:15 | disposition home or self-care (01) ==
LOC: ER 10:40 → ER IP 14:51 → CSU 15:08 → ER IP 16:26
PROVIDERS: Admitting Provider Internal Medicine; Emergency Provider Family Medicine; PCP Nurse Practitioner Family; Visit Provider Internal Medicine
DX: R55 Syncope and collapse (principal); R00.1 Bradycardia, unspecified; I10 Essential (primary) hypertension; E03.9 Hypothyroidism, unspecified; F20.0 Paranoid schizophrenia; I25.10 Atherosclerotic heart disease of native coronary artery without angina pectoris; M19.019 Primary osteoarthritis, unspecified shoulder; Z79.82 Long term (current) use of aspirin; J44.9 Chronic obstructive pulmonary disease, unspecified; K21.9 Gastro-esophageal reflux disease without esophagitis; E78.2 Mixed hyperlipidemia
CPT/HCPCS: 36415; 51702; 70450; 71045; 72125; 73030; 80053; 81003; 82550; 83735; 83880; 84443; 84484; 85025; 93005; 93306; 96360; 96361; 96372; 99285; G0378; J1650; J7030; Q0175

== ENCOUNTER → 2021-12-07 11:20 | Outpatient (BNVA) | payer MEDICARE, MEDICAID, SELFPAY | PROVIDERS: PCP Nurse Practitioner Family; Visit Provider Nurse Practitioner Family | DX: Z09 Encounter for follow-up examination after completed treatment for conditions other than malignant neoplasm (principal); R55 Syncope and collapse; I10 Essential (primary) hypertension | CPT/HCPCS: 99214 ==

== ENCOUNTER → 2021-12-19 09:34 | Outpatient (BNVA) | payer MEDICARE, MEDICAID, SELFPAY | PROVIDERS: PCP Nurse Practitioner Family; Visit Provider Nurse Practitioner Family | DX: E55.9 Vitamin D deficiency, unspecified (principal); D64.9 Anemia, unspecified; Z13.6 Encounter for screening for cardiovascular disorders; Z79.899 Other long term (current) drug therapy; Z00.00 Encounter for general adult medical examination without abnormal findings; Z90.12 Acquired absence of left breast and nipple | CPT/HCPCS: 80061; 80164; 81003; 82306; 83921 ==

== ENCOUNTER 2022-01-12 09:44 | Outpatient (CLI) | payer MEDICARE, MEDICAID, SELFPAY ==
--- NOTE | 2022-01-12 10:00 | MM_ITS ---
WS: [id number] DIAGNOSTIC RIGHT DIGITAL MAMMOGRAM WITH CAD, 3-D imaging. 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 Technique: CC, MLO and ML views. Breast composition: There are scattered areas of fibroglandular density. Extensive vascular calcific ations and scattered round coarse calcifications. MM/[place] [id number] IMPRESSION: BI-RADS: 2-Benign FOLLOW UP: 1 Year Follow-up
== END 2022-01-12 09:45 | disposition home or self-care (01) ==
LOC: RAD 09:50
PROVIDERS: PCP Nurse Practitioner Family; Visit Provider Nurse Practitioner Family
DX: Z90.12 Acquired absence of left breast and nipple (principal)
CPT/HCPCS: 77061

== ENCOUNTER → 2022-01-27 08:16 | Outpatient (BNVA) | payer MEDICARE, MEDICAID, SELFPAY | PROVIDERS: PCP Nurse Practitioner Family; Visit Provider Nurse Practitioner Psychiatric/Mental Health | DX: F20.0 Paranoid schizophrenia (principal); Z79.899 Other long term (current) drug therapy | CPT/HCPCS: 99214 ==

== ENCOUNTER → 2022-02-07 11:11 | Outpatient (BNVA) | payer MEDICARE, MEDICAID, SELFPAY | PROVIDERS: PCP Nurse Practitioner Family; Visit Provider Nurse Practitioner | DX: Z13.6 Encounter for screening for cardiovascular disorders (principal); I10 Essential (primary) hypertension; E03.9 Hypothyroidism, unspecified | CPT/HCPCS: 80053; 80061; 81000; 84443; 85025 ==

== ENCOUNTER → 2022-06-14 11:48 | Outpatient (BNVA) | payer MEDICARE, OTHER, SELFPAY | PROVIDERS: PCP Nurse Practitioner; Visit Provider Nurse Practitioner | DX: I10 Essential (primary) hypertension (principal); E03.9 Hypothyroidism, unspecified; Z79.899 Other long term (current) drug therapy; E78.5 Hyperlipidemia, unspecified; I25.10 Atherosclerotic heart disease of native coronary artery without angina pectoris | CPT/HCPCS: 80053; 80061; 80164; 81000; 84443; 85025 ==

== ENCOUNTER → 2022-06-26 12:07 | Outpatient (BNVA) | payer MEDICARE, MEDICAID, SELFPAY | PROVIDERS: PCP Nurse Practitioner; Visit Provider Internal Medicine Cardiovascular Disease | DX: I25.10 Atherosclerotic heart disease of native coronary artery without angina pectoris (principal); I10 Essential (primary) hypertension; F20.0 Paranoid schizophrenia; J44.9 Chronic obstructive pulmonary disease, unspecified; E78.2 Mixed hyperlipidemia; Z87.891 Personal history of nicotine dependence | CPT/HCPCS: 99214 ==

== ENCOUNTER → 2022-08-28 09:57 | Outpatient (BNVA) | payer MEDICARE, MEDICAID, SELFPAY | PROVIDERS: PCP Nurse Practitioner; Visit Provider Podiatrist Foot & Ankle Surgery | DX: B35.1 Tinea unguium (principal); Q82.8 Other specified congenital malformations of skin; M25.471 Effusion, right ankle; M25.472 Effusion, left ankle | CPT/HCPCS: 99203 ==

== ENCOUNTER 2022-11-06 11:05 | Emergency (ER) | payer MEDICARE, MEDICAID, SELFPAY ==
[2022-11-06] VITALS (22 sets, daily range): BP systolic 109–144; BP diastolic 60–107; PULSE 56–90; RESP 17–29; O2SAT 79–100; BMI 22.3
--- NOTE | 2022-11-06 11:11 | W.ED.WEAKNES ---
HPI - Weakness General: Chief complaint: General Medical Stated complaint: WEAK CANT WALK Time Seen by Provider: 11/06/22 11:11 Limitations: physical limitation History of Present Illness: Ms. Vu is a 77-year-old lady with history of deafness (per chart review COPD, hypertension, CAD, hyperlipidemia, schizophrenia) presenting to the emergency department for questionable syncopal episode. The patient herself is deaf and provides very very limited history if any. Per staff upon their arrival she was ambulating to a van for a podiatry appointment when she had weakness mostly it seemed on the left. No collapse or head injury. She apparently then sat in the van and started shaking. Currently back to baseline. Staff is unsure of recent changes in health however does endorse possible increased sleeping per other staff member report over the past few days. History is otherwise limited by communication barrier. Review of Systems General: Reports: ROS unobtainable due to medical condition PFS ED PFSH: Medical History Acquired hypothyroidism Anemia Anemia Benign hypertension Bilateral deafness CAD (coronary artery disease) COPD (chronic obstructive pulmonary disease) Essential hypertension Fixation hardware in leg Folic acid deficiency GERD (gastroesophageal reflux disease) Hx of fracture of leg Hyperlipidemia Hypertension screen Hypothyroid Iron deficiency Mixed hyperlipidemia On valproate therapy Paranoid schizophrenia Psychiatric care Supracondylar fracture of left femur Urinary tract infection Vitamin D deficiency Surgical History H/O total mastectomy of left breast Postoperative state S/P ORIF (open reduction internal fixation) fracture Status post cholecystectomy Family History Other Family history unknown Social History Smoking and tobacco status: former smoker Alcohol intake: unknown Physical Exam Const: COMMON NORMALS: alert GENERAL APPEARANCE: cooperative, well developed and frail appearing HENMT: COMMON NORMALS: normocephalic and atraumatic HEAD & SCALP: normocephalic and atraumatic THROAT: posterior oropharynx normal Eye: COMMON NORMALS: conjunctivae normal CONJUNCTIVA: Yes conjunctivae normal SCLERA: sclerae normal Neck/C-Spine: COMMON NORMALS: supple GENERAL: Yes trachea midline Resp: COMMON NORMALS: clear to auscultation bilaterally EFFORT & INSPECTION: Yes able to speak in complete sentences AUSCULTATION: clear to auscultation bilaterally Cardio: COMMON NORMALS: regular rate and regular rhythm RATE: regular rate RHYTHM: regular rhythm GI: COMMON NORMALS: Soft to palpation PALPATION: Yes Soft to palpation and No Tenderness to palpation present (GI) Extremity: GENERAL: Yes normal exam except as noted and No edema Neuro: COMMON NORMALS: CN's II-XII intact bilaterally, moves all extremities, no focal motor deficits and no sensory deficits noted SENSORIUM/ORIENTATION: Yes alert and No Orientation impaired OTHER: Reportedly baseline hearing impairment Psych: COMMON NORMALS: mental status grossly normal Course Vital Signs: Vital signs: Vital Signs Pulse Rate 62 11/06/22 13:35 Respiratory Rate 22 H 11/06/22 13:35 Blood Pressure 139/107 11/06/22 13:35 Pulse Oximetry 96 11/06/22 13:35 Oxygen Delivery Me thod 11/06/22 12:00 MDM - Weakness Medical Decision Making 77-year-old lady presenting with weakness and possible tremor/shaking episode. Limited exam secondary to baseline hearing impairment. No focal neurologic deficits. Patient is nontoxic though frail-appearing. Broad differential considered and testing ordered as appropriate based on clinical likelihood and morbidity/mortality associated conditions. EKG notable for sinus rhythm, borderline left axis deviation, bradycardia, normal intervals, nonspecific ST segment abnormalities. No STEMI. Similar upon repeat and in comparison. Labs with no significant hematologic abnormalities, mild hyponatremia on metabolic panel. Hyponatremia is worse than baseline however patient does have a history of hyponatremia. I do not believe that value is low enough to create mental status change. Negative range 2-hour delta troponin. Normal TSH. No evidence of urinary tract infection. Chest x-ray similar to prior with no lobar consolidation or pneumothorax. Head CT without acute intracranial pathology. Patient treated with IV fluids and felt improved. The exact cause of patient's symptoms is unspecified episode of weakness. In clarification of clinical history patient has recurrent episodes and I believe that symptoms are most likely related to baseline medical state with possible exacerbation secondary to dehydration/hyponatremia. I do not see evidence and history as not consistent with seizure or syncopal episode. No evidence of TIA/stroke. The results of ED evaluation were discussed with the patient and staff including prescriptions and/or symptomatic cares (if applicable) including appropriate and responsible use, followup plan, and return precautions. The patient and staff verbalized understanding and felt safe for discharge. Medical Records I reviewed the patient's medical records. Lab Data I reviewed the patient's lab results. 11/06/22 11:35 11/06/22 11:35 Radiology Impressions Chest X-Ray 11/06/22 11:19 IMPRESSION: No acute cardiopulmonary abnormality. Head CT 11/06/22 11:19 IMPRESSION: 1. No evidence of intracranial hemorrhage or mass effect. 2. Mild small vessel changes with moderate parenchymal volume loss. 3. Vascular calcification. 4. No acute intracranial findings. Laboratory Results WBC 8.6 10^3/uL (4.0-10.0) 11/06/22 11:35 RBC 4.24 10^6/uL (4.1-5.3) 11/06/22 11:35 Hgb 13.0 g/dL (11.5-15.3) 11/06/22 11:35 Hct 39.0 % (37.0-47.0) 11/06/22 11:35 MCV 92.0 fl (81-99) 11/06/22 11:35 MCH 30.7 pg (28.0-34.0) 11/06/22 11:35 MCHC 33.3 g/dL (30.0-36.0) 11/06/22 11:35 RDW 13.8 % (12.1-15.1) 11/06/22 11:35 Plt Count 247 10^3/cmm (130-400) 11/06/22 11:35 MPV 10.1 fL (7.4-10.4) 11/06/22 11:35 Neut % (Auto) 67.9 % 11/06/22 11:35 Lymph % (Auto) 19.5 % 11/06/22 11:35 Edgar % (Auto) 10.7 % 11/06/22 11:35 Eos % (Auto) 0.9 % 11/06/22 11:35 Baso % (Auto) 0.7 % 11/06/22 11:35 Neut # (Auto) 5.85 10^3/uL (1.8-7.7) 11/06/22 11:35 Lymph # (Auto) 1.7 10^3/uL (0.8-4.8) 11/06/22 11:35 Edgar # (Auto) 0.9 10^3/uL (0.2-0.9) 11/06/22 11:35 Eos # (Auto) 0.1 10^3/uL (0.0-0.8) 11/06/22 11:35 Baso # (Auto) 0.1 10^3/uL (0.0-0.1) 11/06/22 11:35 Nucleated RBC % (auto) 0 % 11/06/22 11:35 Nucleated RBCs # 0.0 /100WBC 11/06/22 11:35 Sodium 126 mmol/L (136-145) L 11/06/22 11:35 Potassium 4.4 mmol/L (3.5-5.1) 11/06/22 11:35 Chloride 92 mmol/L (98-107) L 11/06/22 11:35 Carbon Dioxide 27 mmol/L (22-29) 11/06/22 11:35 Anion Gap 11.4 (5-19) 11/06/22 11:35 BUN 17 mg/dL (8-23) 11/06/22 11:35 Creatinine 0.5 mg/dL (0.5-0.9) 11/06/22 11:35 GFR Calculation Not Reportable 11/06/22 11:35 Glucose 96 mg/dL (65-115) 11/06/22 11:35 POC Glucose 101 mg/dL (70-110) 11/06/22 11:35 Calculated Osmolality 263 mOsm/kg (285-295) L 11/06/22 11:35 Calcium 9.3 mg/dL (8.5-10.5) 11/06/22 11:35 Total Bilirubin 0.3 mg/dL (0.15-1.2) 11/06/22 11:35 AST 21 U/L (0-32) 11/06/22 11:35 ALT 12 U/L (0-33) 11/06/22 11:35 Alkaline Phosphatase 102 U/L (35-105) 11/06/22 11:35 Troponin T Baseline 14 ng/L (0-10) H 11/06/22 11:35 Troponin T 120 Minute 11.75 ng/L (0-10) H 11/06/22 13:27 Delta Troponin T -2.25 ABS# (0-10) L 11/06/22 13:27 Total Protein 6.4 g/dL (6.6-8.7) L 11/06/22 11:35 Albumin 4.0 g/dL (3.5-5.2) 11/06/22 11:35 Globulin 2.4 g/dL (1.3-4.6) 11/06/22 11:35 TSH 1.49 uIU/mL (0.27-4.20) 11/06/22 11:35 Urine Color Yellow (Yellow) 11/06/22 11:50 Urine Appearance Clear (CLEAR) 11/06/22 11:50 Urine pH 6.5 (5-7) 11/06/22 11:50 Ur Specific Avalon 1.005 (1.005-1.030) 11/06/22 11:50 Urine Protein Neg (Negative) 11/06/22 11:50 Urine Glucose (UA) Norm (Normal) 11/06/22 11:50 Urine Ketones Negative (Negative) 11/06/22 11:50 Urine Blood Neg (Negative) 11/06/22 11:50 Urine Nitrate Negative (Negative) 11/06/22 11:50 Urine Bilirubin Neg (Negative) 11/06/22 11:50 Urine Urobilinogen 1 mg/dL (Negative) H 11/06/22 11:50 Ur Leukocyte Esterase Negative (Negative) 11/06/22 11:50 Discharge Plan Discharge Patient Disposition: Home Clinical Impression: Generalized weakness, Dehydration, Hyponatremia Condition: Stable Prescriptions: No Action aspirin [Adult Low Dose Aspirin] 81 mg tablet,delayed release (DR/EC) 81 mg PO DAILY@06 ferrous sulfate 325 mg (65 mg iron) tablet 325 mg PO DAILY@06 multivitamin Tablet 1 tab PO DAILY@06 fluoxetine [Prozac] 20 mg capsule 20 mg PO QAM Qty: 30 6RF divalproex [Depakote ER] 250 mg tablet extended release 24 hr 250 mg PO BID Qty: 60 6RF nitroglycerin 0.4 mg tablet, sublingual See Rx Instructions .ROUTE .COMPLEX Qty: 25 0RF Dose Instruction: PLACE ONE TABLET UNDER TONGUE EVERY 5 MINUTES NEEDED FOR CHEST PAIN Rx Instructions: PLACE ONE TABLET UNDER TONGUE EVERY 5 MINUTES NEEDED FOR CHEST PAIN montelukast 10 mg tablet 10 mg PO DAILY@21 Qty: 30 5RF simvastatin 20 mg tablet See Rx Instructions .ROUTE .COMPLEX Qty: 90 3RF Dose Instruction: TAKE ONE TABLET BY MOUTH EVERY DAY Rx Instructions: TAKE ONE TABLET BY MOUTH EVERY DAY haloperidol 5 mg tablet 5 mg PO BID PRN (Reason: severe agitation) Qty: 60 3RF calcium carbonate-vitamin D3 250 mg-3.125 mcg (125 unit) tablet See Rx Instructions .ROUTE .COMPLEX Qty: 180 1RF Dose Instruction: TAKE 1 TABLET BY MOUTH TWICE DAILY Rx Instructions: TAKE 1 TABLET BY MOUTH TWICE DAILY Vitamin B-12 1,000 mcg Tablet 1,000 mcg PO DAILY perphenazine 2 mg tablet 6 mg PO QAM levothyroxine 25 mcg tablet 25 mcg PO DAILY Ativan 0.5 mg tablet 0.5 mg PO BID pantoprazole 40 mg tablet,delayed release (DR/EC) 40 mg PO DAILY Breo Ellipta 200-25 mcg/dose blister with device 1 inh inhalation DAILY Discharge Orders: Discharge ED (Routine); Ordered 11/06/22 Ordered By: Alex Fink Referrals: Sindhu England FNP [Primary Care Provider] - Discharge Diet: Usual diet Discharge Activity: Resume usual activity Patient Instructions: Dehydration (ED), Hyponatremia (ED) Activity Restrictions/Additional Instructions: Thank you for visiting the emergency department. You were seen and evaluated for generalized weakness episode. The most likely cause of your weakness is dehydration with acute on chronic hyponatremia. Please ensure adequate p.o. intake. Please follow-up with your primary care provider. Return to the emergency department for any new neurologic symptoms, recurrent symptoms, or anything else that you are concerned about and feel needs emergency department evaluation. Coding Level of Care Code ED Corporate Responsibility Officer for Basilio Toth
--- NOTE | 2022-11-06 11:19 | CT_ITS ---
WS: [id number] CT HEAD TECHNIQUE: Noncontrast CT of the head obtained from the skullbase to the vertex. CLINICAL INFORMATION: generalized weakness, possible syncope COMPARISON: None. DLP: 1214.[address] scans at [facility] use at least one of these dose optimization techniques: automated e xposure control; mA and/or kV adjustment per patient size (includes targeted exams where dose is matc hed to clinical indication); or iterative reconstruction. FINDINGS: No evidence of intracranial hemorrhage or mass effect. Ventricular system and basal cisterns are maldonado nt. Mild small vessel changes with moderate parenchymal volume loss. No extra-axial fluid collections . No evidence of mass or mass effect. Intracranial vascular calcification. Paranasal sinuses and mastoid air cells are well aerated. .Normal visualized soft tissues CT/CT head wo con* [id number] IMPRESSION: 1. No evidence of intracranial hemorrhage or mass effect. 2. Mild small vessel changes with moderate parenchymal volume loss. 3. Vascular calcification. 4. No acute intracranial findings.
--- NOTE | 2022-11-06 11:19 | XRR_ITS ---
PROCEDURE INFORMATION: Exam: XR Chest Exam date and time: 11/06/2022 11:24 AM Age: 77 years old Clinical indication: Other: Generalized weakness; Additional info: Generalized weakness, possible syncope TECHNIQUE: Imaging protocol: Radiologic exam of the chest. Views: 1 view. COMPARISON: CR XR chest 1V portable [id number] 11/01/2021 9:17 AM FINDINGS: Lungs: No focal airspace disease. Pleural spaces: Unremarkable. No pleural effusion. No pneumothorax. Heart/Mediastinum: Cardiomediastinal silhouette is within normal limits. Bones/joints: Unremarkable. XR/XR chest 1V portable [id number] IMPRESSION: No acute cardiopulmonary abnormality.
--- NOTE | 2022-11-06 11:29 | ECG_ITS ---
[facility] Test Date: 2022-11-06 Pat Name: Montse Vu Department: Room: Gender: Female Production Control Expediter: : 1945 Requested By: Alex Fink Order Number: [id number] Aguilar MD: Sherrill Delgadillo M.D. Measurements Intervals [place] Rate: 55 P: 66 RI: 161 QRS: 17 QRSD: 93 T: 66 QT: 418 QTc: 402 Interpretive Statements SINUS BRADYCARDIA Compared to ECG 11/01/2021 12:10:36 Left ventricular hypertrophy no longer present ST (T wave) deviation no longer present Electronically Signed On 11-06-2022 20:43:34 MINE CAR DISPATCHER by Sherrill Delgadillo M.D. [id number]
[2022-11-06 11:37] LABS: Glucose Point of Care 101 mg/dL (70-110)
[2022-11-06 11:44] LABS: Basophils # 0.1 10^3/uL (0.0-0.1); Basophils % 0.7 %; Eosinophils # 0.1 10^3/uL (0.0-0.8); Eosinophils % 0.9 %; Lymphocytes # 1.7 10^3/uL (0.8-4.8); Lymphocytes % 19.5 %; Mean Corpuscular HGB Conc 33.3 g/dL (30.0-36.0); Mean Corpuscular Hemoglobin 30.7 pg (28.0-34.0); Mean Platelet Volume 10.1 fL (7.4-10.4); Monocytes # 0.9 10^3/uL (0.2-0.9); Monocytes % 10.7 %; Neutrophils # 5.85 10^3/uL (1.8-7.7); Neutrophils % 67.9 %; Nucleated Red Blood Cells % 0 %; Platelet Count 247 10^3/cmm (130-400); Red Blood Count 4.24 10^6/uL (4.1-5.3); Red Cell Distribution Width 13.8 % (12.1-15.1); White Blood Count 8.6 10^3/uL (4.0-10.0)
[2022-11-06 11:59] LABS: Add Urine Microscopic? NO; Charge for UA Resulting for Rev
[2022-11-06 12:02] LABS: Bilirubin Urine Neg (Negative); Blood Urine Neg (Negative); Glucose Urine UA Norm (Normal); Ketones Urine Negative (Negative); Leukocyte Esterase Urine Negative (Negative); Nitrate Urine Negative (Negative); Protein Urine Neg (Negative); Specific Gravity, Urine 1.005 (1.005-1.030); Urine Appearance Clear (CLEAR); Urine Color Yellow (Yellow); Urobilinogen Urine 1 mg/dL (Negative); pH Urine 6.5 (5-7)
[2022-11-06 12:07] LABS: Troponin(5th) Baseline 14 ng/L (0-10)
[2022-11-06 12:15] LABS: Alanine Aminotransferase 12 U/L (0-33); Alkaline Phosphatase 102 U/L (35-105); Anion Gap 11.4 (5-19); Aspartate Amino Transferase 21 U/L (0-32); Blood Urea Nitrogen 17 mg/dL (8-23); Calcium 9.3 mg/dL (8.5-10.5); Carbon Dioxide 27 mmol/L (22-29); Chloride 92 mmol/L (98-107); Globulin 2.4 g/dL (1.3-4.6); Glucose 96 mg/dL (65-115); Osmolality Calculated 263 mOsm/kg (285-295); Potassium 4.4 mmol/L (3.5-5.1); Sodium 126 mmol/L (136-145); Thyroid Stimulating Hormone 1.49 uIU/mL (0.27-4.20); Total Bilirubin 0.3 mg/dL (0.15-1.2); Total Protein 6.4 g/dL (6.6-8.7)
[2022-11-06] MEDS: sodium chloride 0.9% 1,000 ML 999 ML IV (12:49)
--- NOTE | 2022-11-06 13:24 | ECG_ITS ---
[facility] Test Date: 2022-11-06 Pat Name: Montse Vu Department: Room: Gender: Female Marketing Recruiter: : 1945 Requested By: Alex Fink Order Number: [id number] Lauren MD: Sherrill Delgadillo M.D. Measurements Intervals [place] Rate: 61 P: 68 ID: [id number] QRS: 45 QRSD: 93 T: 74 QT: 410 QTc: 416 Interpretive Statements SINUS RHYTHM Compared to ECG 11/06/2022 11:29:48 Sinus bradycardia no longer present Electronically Signed On 11-06-2022 22:08:08 PAYROLL COORDINATOR by Sherrill Delgadillo M.D. [id number]
[2022-11-06 13:55] LABS: Troponin 5 2HR 11.75 ng/L (0-10)
[2022-11-06 13:59] LABS: Troponin 5 2HR Delta -2.25 ABS# (0-10)
== END 2022-11-06 15:26 | disposition home or self-care (01) ==
PROVIDERS: Emergency Provider Emergency Medicine; PCP Nurse Practitioner
DX: R53.1 Weakness (principal); E86.0 Dehydration; E87.1 Hypo-osmolality and hyponatremia; Z79.82 Long term (current) use of aspirin; Z87.891 Personal history of nicotine dependence; I10 Essential (primary) hypertension; I25.10 Atherosclerotic heart disease of native coronary artery without angina pectoris; J44.9 Chronic obstructive pulmonary disease, unspecified; E78.2 Mixed hyperlipidemia
CPT/HCPCS: 36416; 70450; 71045; 80053; 81003; 82962; 84443; 84484; 85025; 93005; 96360; 99285; J7030

== ENCOUNTER → 2022-11-10 10:58 | Outpatient (BNVA) | payer MEDICARE, MEDICAID, SELFPAY | PROVIDERS: PCP Nurse Practitioner; Visit Provider Nurse Practitioner | DX: E87.1 Hypo-osmolality and hyponatremia (principal); E86.0 Dehydration; Z09 Encounter for follow-up examination after completed treatment for conditions other than malignant neoplasm | CPT/HCPCS: 80053; 80164 ==

== ENCOUNTER 2023-01-29 11:17 | Outpatient (CLI) | payer MEDICARE, MEDICAID, OTHER, SELFPAY ==
--- NOTE | 2023-01-29 11:51 | MM_ITS ---
WS: [id number] DIAGNOSTIC RIGHT DIGITAL MAMMOGRAPHY WITH CAD. HISTORY: HX OF SELF BREAST CA/CANNOT HOLD BREATH COMPARISON: 01/12/2022, 11/04/2020 Technique: CC, MLO and ML views. 2-D only. Breast composition: There are scattered areas of fibroglandular density. Benign and vascular calcifi cations in the RIGHT breast. No suspicious masses or distortion. MM/[place] [id number] IMPRESSION: BI-RADS: 2-Benign FOLLOW UP: 1 Year Follow-up
== END 2023-01-29 11:18 | disposition home or self-care (01) ==
LOC: RAD 11:23
PROVIDERS: PCP Nurse Practitioner; Visit Provider Nurse Practitioner
DX: Z12.31 Encounter for screening mammogram for malignant neoplasm of breast (principal); Z85.3 Personal history of malignant neoplasm of breast; Z90.12 Acquired absence of left breast and nipple
CPT/HCPCS: 77065

== ENCOUNTER → 2023-02-23 09:49 | Outpatient (BNVA) | payer MEDICARE, MEDICAID, OTHER, SELFPAY | PROVIDERS: PCP Nurse Practitioner; Visit Provider Nurse Practitioner | DX: Z79.899 Other long term (current) drug therapy (principal) | CPT/HCPCS: 80061; 80164; 83036 ==

== ENCOUNTER 2023-05-09 09:39 | Emergency (ER) | payer MEDICARE, MEDICAID, SELFPAY ==
[2023-05-09 09:40] VITALS: PULSE 49; RESP 18; TEMP 36.4; O2SAT 88; BMI 18.3
--- NOTE | 2023-05-09 09:41 | W.ED.SYNCOPE ---
HPI - Syncope General: Chief Complaint: Syncope Stated Complaint: syncope Time Seen by Provider: 05/09/23 09:40 Limitations: physical limitation (Deaf) History of Present Illness: Ms. Vu is a 77-year-old lady who is deaf and resides at a residential care facility presenting to the emergency department for possible syncopal episode. Reportedly no recent changes in health or medication. She was taking her medication this morning when she stiffened and slid down in her wheelchair. She was able to swallow her pills and no reported choking with these. She shakes at baseline however reports that this was more pronounced. She apparently reported headache and some abdominal pain though this is improved. History otherwise limited by patient's baseline communication barrier. History provided by staff at bedside. Onset (ago): minute(s) Witnessed: Yes - by Bystander Context: at rest Review of Systems General: Reports: 10 or more systems reviewed and unremarkable except in HPI and below PFSH ED PFSH: Medical History Acquired hypothyroidism Anemia Anemia Benign hypertension Bilateral deafness CAD (coronary artery disease) COPD (chronic obstructive pulmonary disease) Essential hypertension Fixation hardware in leg Folic acid deficiency GERD (gastroesophageal reflux disease) Hx of fracture of leg Hyperlipidemia Hypertension screen Hypothyroid Iron deficiency Mixed hyperlipidemia On valproate therapy Paranoid schizophrenia Psychiatric care Supracondylar fracture of left femur Urinary tract infection Vitamin D deficiency Surgical History H/O total mastectomy of left breast Postoperative state S/P ORIF (open reduction internal fixation) fracture Status post cholecystectomy Family History Other Family history unknown Social History Smoking and tobacco status: former smoker Alcohol intake: unknown Substance/Drug Use: unknown Physical Exam Const: COMMON NORMALS: alert GENERAL APPEARANCE: cooperative and well developed HENMT: COMMON NORMALS: normocephalic and atraumatic HEAD & SCALP: normocephalic and atraumatic Eye: COMMON NORMALS: conjunctivae normal CONJUNCTIVA: Yes conjunctivae normal SCLERA: sclerae normal Neck/C-Spine: COMMON NORMALS: supple GENERAL: Yes trachea midline Resp: COMMON NORMALS: clear to auscultation bilaterally AUSCULTATION: clear to auscultation bilaterally Cardio: COMMON NORMALS: regular rate and regular rhythm RATE: regular rate RHYTHM: regular rhythm GI: COMMON NORMALS: Soft to palpation PALPATION: Yes Soft to palpation and No Tenderness to palpation present (GI) Extremity: GENERAL: Yes normal exam except as noted and No edema Neuro: COMMON NORMALS: moves all extremities SENSORIUM/ORIENTATION: Yes alert and No Orientation impaired Psych: COMMON NORMALS: mental status grossly normal and Normal thought process present THOUGHT PROCESS: Normal thought process present Course Vital Signs: Vital signs: Vital Signs Temperature 97.5 F L 05/09/23 09:40 Pulse Rate 56 L 05/09/23 13:44 Respiratory Rate 18 05/09/23 09:40 Blood Pressure 132/82 05/09/23 10:33 Pulse Oximetry 96 05/09/23 13:44 Oxygen Delivery Me thod Room Air 05/09/23 12:06 Oxygen Flow Rate 2 05/09/23 10:33 MDM - Syncope Medical Decision Making 77-year-old lady presenting with syncopal episode. Exam as above with limited exam secondary to deafness however no focal neurodeficits or other obvious abnormality identified. EKG demonstrates sinus bradycardia, no STEMI. Labs with no significant hematologic or metabolic abnormalities. Negative range 2-hour delta troponin. No UTI. Chest x-ray with no lobar consolidation or pneumothorax. No hemorrhage or mass on head CT. Exact etiology of symptoms is somewhat unclear. Adequate blood pressure with low heart rate. Discussed with patient and caregiver were comfortable with outpatient follow-up. The results of ED evaluation were given to the patient including prescriptions and/or symptomatic cares (if applicable) including appropriate and responsible use, followup plan, and return precautions. The patient verbalized understanding and felt safe for discharge. Medical Records I reviewed the patient's medical records. Lab Data I reviewed the patient's lab results. 05/09/23 10:23 05/09/23 10:[address] 05/09/23 09:58 IMPRESSION: 1. Age appropriate supratentorial and infratentorial atrophy. 2. Moderate chronic white matter microvascular ischemic disease. 3. No acute intracranial abnormality identified. Laboratory Results WBC 8.7 10^3/uL (4.0-10.0) 05/09/23 10:23 RBC 4.41 10^6/uL (4.1-5.3) 05/09/23 10:23 Hgb 13.5 g/dL (11.5-15.3) 05/09/23 10:23 Hct 41.5 % (37.0-47.0) 05/09/23 10:23 MCV 94.1 fl (81-99) 05/09/23 10:23 MCH 30.6 pg (28.0-34.0) 05/09/23 10:23 MCHC 32.5 g/dL (30.0-36.0) 05/09/23 10:23 RDW 14.3 % (12.1-15.1) 05/09/23 10:23 Plt Count 194 10^3/cmm (130-400) 05/09/23 10:23 MPV 10.4 fL (7.4-10.4) 05/09/23 10:23 Neut % (Auto) 68.0 % 05/09/23 10:23 Lymph % (Auto) 18.8 % 05/09/23 10:23 [place] % (Auto) 9.6 % 05/09/23 10:23 Eos % (Auto) 2.3 % 05/09/23 10:23 Baso % (Auto) 1.0 % 05/09/23 10:23 Neut # (Auto) 5.87 10^3/uL (1.8-7.7) 05/09/23 10:23 Lymph # (Auto) 1.6 10^3/uL (0.8-4.8) 05/09/23 10:23 [place] # (Auto) 0.8 10^3/uL (0.2-0.9) 05/09/23 10:23 Eos # (Auto) 0.2 10^3/uL (0.0-0.8) 05/09/23 10:23 Baso # (Auto) 0.1 10^3/uL (0.0-0.1) 05/09/23 10:23 Nucleated RBC % (auto) 0 % 05/09/23 10:23 Nucleated RBCs # 0.0 /100WBC 05/09/23 10:23 Sodium 133 mmol/L (136-145) L 05/09/23 10:23 Potassium 4.3 mmol/L (3.5-5.1) 05/09/23 10:23 Chloride 98 mmol/L (98-107) 05/09/23 10:23 Carbon Dioxide 23 mmol/L (22-29) 05/09/23 10:23 Anion Gap 16.3 (5-19) 05/09/23 10:23 BUN 18 mg/dL (8-23) 05/09/23 10:23 Creatinine 0.5 mg/dL (0.5-0.9) 05/09/23 10:23 GFR Calculation Not Reportable 05/09/23 10:23 Glucose 97 mg/dL (65-115) 05/09/23 10:23 POC Glucose 87 mg/dL (70-110) 05/09/23 10:42 Calculated Osmolality 278 mOsm/kg (285-295) L 05/09/23 10:23 Calcium 9.3 mg/dL (8.5-10.5) 05/09/23 10:23 Total Bilirubin 0.3 mg/dL (0.15-1.2) 05/09/23 10:23 AST 21 U/L (0-32) 05/09/23 10:23 ALT 13 U/L (0-33) 05/09/23 10:23 Alkaline Phosphatase 75 U/L (35-105) 05/09/23 10:23 Troponin T Baseline 14 ng/L (0-10) H 05/09/23 10:23 Troponin T 120 Minute 13.17 ng/L (0-10) H 05/09/23 12:23 Delta Troponin T -0.83 ABS# (0-10) L 05/09/23 12:23 C-Reactive Protein 3.0 mg/L (0.0-4.9) 05/09/23 10:23 Total Protein 6.0 g/dL (6.6-8.7) L 05/09/23 10:23 Albumin 3.8 g/dL (3.5-5.2) 05/09/23 10:23 Globulin 2.2 g/dL (1.3-4.6) 05/09/23 10:23 Procalcitonin 0.03 ng/mL (0-0.5) 05/09/23 10:23 TSH 1.29 uIU/mL (0.27-4.20) 05/09/23 10:23 Urine Color Dark yellow (Yellow) 05/09/23 11:02 Urine Appearance Clear (CLEAR) 05/09/23 11:02 Urine pH 6.5 (5-7) 05/09/23 11:02 Ur Specific [place] 1.010 (1.005-1.030) 05/09/23 11:02 Urine Protein Trace (Negative) 05/09/23 11:02 Urine Glucose (UA) Norm (Normal) 05/09/23 11:02 Urine Ketones 1+ (Negative) H 05/09/23 11:02 Urine Blood Neg (Negative) 05/09/23 11:02 Urine Nitrate Negative (Negative) 05/09/23 11:02 Urine Bilirubin Neg (Negative) 05/09/23 11:02 Urine Urobilinogen Norm mg/dL (Negative) 05/09/23 11:02 Ur Leukocyte Esterase Negative (Negative) 05/09/23 11:02 Urine RBC 0-4 /hpf (0-2) H 05/09/23 11:02 Urine WBC 0-4 /hpf (0-5) H 05/09/23 11:02 Ur Squamous Epith Cells 0-4 /hpf (0-5) H 05/09/23 11:02 Amorphous Sediment Not Reportable 05/09/23 11:02 Urine Bacteria Trace /hpf (NONE) 05/09/23 11:02 Urine Mucus Trace /hpf 05/09/23 11:02 Discharge Plan Discharge Patient Disposition: Home Clinical Impression: Syncope, Bradycardia, sinus Condition: Stable Prescriptions: No Action aspirin [Adult Low Dose Aspirin] 81 mg tablet,delayed release (DR/EC) 81 mg PO DAILY@06 ferrous sulfate 325 mg (65 mg iron) tablet 325 mg PO DAILY@06 multivitamin Tablet 1 tab PO DAILY@06 divalproex [Depakote ER] 250 mg tablet extended release 24 hr 250 mg PO BID Qty: 60 6RF fluoxetine [Prozac] 20 mg capsule 20 mg PO QAM Qty: 30 6RF haloperidol 5 mg tablet 5 mg PO BID PRN (Reason: severe agitation) Qty: 60 3RF nitroglycerin 0.4 mg tablet, sublingual See Rx Instructions .ROUTE .COMPLEX Qty: 25 0RF Dose Instruction: PLACE ONE TABLET UNDER TONGUE EVERY 5 MINUTES NEEDED FOR CHEST PAIN Rx Instructions: PLACE ONE TABLET UNDER TONGUE EVERY 5 MINUTES NEEDED FOR CHEST PAIN lorazepam [Ativan] 0.5 mg tablet 0.5 mg PO BID Qty: 60 3RF Rx Instructions: Take one tablet twice per day Breo Ellipta 200-25 mcg/dose blister with device 1 inh inhalation DAILY Qty: 28 0RF perphenazine 2 mg tablet 6 mg PO .morning Rx Instructions: Take three tablets every morning, (total dose 6 mg in am) simvastatin 20 mg tablet 20 mg PO DAILY montelukast 10 mg tablet 10 mg PO DAILY Rx Instructions: AT 10 PM calcium carbonate-vitamin D3 250 mg-3.125 mcg (125 unit) tablet 1 tab PO BID cyanocobalamin (vitamin B-12) [Vitamin B-12] 1,000 mcg Tablet 1,000 mcg PO DAILY levothyroxine 25 mcg tablet 25 mcg PO DAILY pantoprazole 40 mg tablet,delayed release (DR/EC) 40 mg PO DAILY Discharge Orders: Discharge ED (Routine); Ordered 05/09/23 Ordered By: Alex Fink Referrals: Sindhu England FNP [Primary Care Provider] - Discharge Diet: Usual diet Discharge Activity: Resume usual activity Patient Instructions: Syncope (ED), Bradycardia (ED) Activity Restrictions/Additional Instructions: Thank you for visiting the emergency department. You were seen and evaluated for syncope. The exact cause of this event is unclear however does not appear to need hospitalization at this time. I will message case management for cardiology follow-up regarding bradycardia though I believe that this is unlikely to have caused the event. Please also follow-up with primary care. You may continue medication regimen. Return for recurrent symptoms, any new neurologic symptoms, or anything else that you are concerned about and feel needs emergency department evaluation. Coding Level of Care Code ED Speeder Worker for Basilio Toth
--- NOTE | 2023-05-09 09:58 | CTR_ITS ---
PROCEDURE INFORMATION: Exam: CT Head Without Contrast Exam date and time: 05/09/2023 10:06 AM Age: 77 years old Clinical indication: Syncope and collapse TECHNIQUE: Imaging protocol: Computed tomography of the head without contrast. Radiation optimization: All CT scans at this facility use at least one of these dose optimization techniques: automated exposure control; mA and/or kV adjustment per patient size (includes targeted exams where dose is matched to clinical indication); or iterative reconstruction. REPORTING DATA: Count of CT and Cardiac NM exams in prior 12 months: This patient has received [address] and 0 known cardiac nuclear medicine studies in the 12 months prior to the current study. COMPARISON: CT head wo con* [id number] 11/06/2022 12:05 PM RADIATION DOSE METRICS: Total DLP (mGy-cm): 1177.74 FINDINGS: Brain: Moderate hypoattenuating foci are noted in the anterior lateral ventricular periventricular white matter bilaterally. No intracranial hemorrhage. No mass or acute cortical infarction identified. Ventricles: Prominence of the ventricular system and subarachnoid spaces is consistent with the patient's age of 77 years. Prominent left lateral ventricular temporal horn, stable. Paranasal sinuses: A cyst/polyp is present in the posterior left maxillary sinus. Mastoid air cells: Visualized mastoid air cells are well aerated. Orbital cavities: Bilateral prior cataract surgery with lens replacements. Bones/joints: No acute abnormality. No acute fracture. Soft tissues: Unremarkable. Vasculature: Atherosclerotic calcifications are present involving the carotid artery siphons and vertebral arteries bilaterally. CT/CT head wo con* [id number] IMPRESSION: 1. Age appropriate supratentorial and infratentorial atrophy. 2. Moderate chronic white matter microvascular ischemic disease. 3. No acute intracranial abnormality identified.
--- NOTE | 2023-05-09 09:58 | XR_ITS ---
WS: [id number] XR chest 1V portable [id number] REASON FOR EXAM: syncope FINDINGS: Chest is unchanged compared to 03/20/2023. Moderate tortuosity and ectasia of the thoracic aorta. No cardiomegaly. Calcified granulomatous disease in both hemithoraces. No focal or diffuse pulmonary parenchymal abnor mality. Mild elevation of the right hemidiaphragm. Bony thorax intact without significant focal abnormality. IMPRESSION: Stable chest with no acute abnormality.
[2023-05-09 10:33] VITALS: BP 132/82; PULSE 54; O2SAT 92
[2023-05-09 10:33] LABS: Basophils # 0.1 10^3/uL (0.0-0.1); Eosinophils # 0.2 10^3/uL (0.0-0.8); Eosinophils % 2.3 %; Hematocrit 41.5 % (37.0-47.0); Hemoglobin 13.5 g/dL (11.5-15.3); Lymphocytes # 1.6 10^3/uL (0.8-4.8); Lymphocytes % 18.8 %; Mean Corpuscular HGB Conc 32.5 g/dL (30.0-36.0); Mean Corpuscular Hemoglobin 30.6 pg (28.0-34.0); Mean Corpuscular Volume 94.1 fl (81-99); Mean Platelet Volume 10.4 fL (7.4-10.4); Monocytes # 0.8 10^3/uL (0.2-0.9); Monocytes % 9.6 %; Neutrophils # 5.87 10^3/uL (1.8-7.7); Nucleated Red Blood Cells % 0 %; Platelet Count 194 10^3/cmm (130-400); Red Blood Count 4.41 10^6/uL (4.1-5.3); Red Cell Distribution Width 14.3 % (12.1-15.1); White Blood Count 8.7 10^3/uL (4.0-10.0)
[2023-05-09 10:44] LABS: Glucose Point of Care 87 mg/dL (70-110)
--- NOTE | 2023-05-09 10:53 | ECG_ITS ---
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 Measurements Intervals [place] Rate: 46 P: 47 MA: 159 QRS: 2 QRSD: 90 T: 47 QT: 459 QTc: 403 Interpretive Statements SINUS BRADYCARDIA Compared to ECG 11/06/2022 13:24:28 Sinus rhythm no longer present Electronically Signed On 05-09-2023 16:47:12 CDT by Edilson Nguyen M.D. [id number]
[2023-05-09 11:02] LABS: Procalcitonin 0.03 ng/mL (0-0.5); Thyroid Stimulating Hormone 1.29 uIU/mL (0.27-4.20)
[2023-05-09 11:03] LABS: Troponin(5th) Baseline 14 ng/L (0-10)
[2023-05-09 11:13] LABS: Alanine Aminotransferase 13 U/L (0-33); Albumin Level 3.8 g/dL (3.5-5.2); Alkaline Phosphatase 75 U/L (35-105); Anion Gap 16.3 (5-19); Aspartate Amino Transferase 21 U/L (0-32); Blood Urea Nitrogen 18 mg/dL (8-23); Calcium 9.3 mg/dL (8.5-10.5); Carbon Dioxide 23 mmol/L (22-29); Chloride 98 mmol/L (98-107); Globulin 2.2 g/dL (1.3-4.6); Glucose 97 mg/dL (65-115); Osmolality Calculated 278 mOsm/kg (285-295); Potassium 4.3 mmol/L (3.5-5.1); Sodium 133 mmol/L (136-145); Total Bilirubin 0.3 mg/dL (0.15-1.2)
[2023-05-09 11:19] LABS: Bilirubin Urine Neg (Negative); Blood Urine Neg (Negative); Glucose Urine UA Norm (Normal); Ketones Urine 1+ (Negative); Nitrate Urine Negative (Negative); Protein Urine Trace (Negative); Urine Appearance Clear (CLEAR); Urine Color Dark yellow (Yellow); pH Urine 6.5 (5-7)
[2023-05-09 11:20] LABS: Add Urine Culture? No; Add Urine Microscopic? YES; Bacteria Urine TRACE /hpf; Leukocyte Esterase Urine Negative (Negative); Mucus Urine TRACE /hpf; RBC Urine 0-4 /hpf (0-2); Squamous Epithelial Cell Urine 0-4 /hpf (0-5); Urobilinogen Urine Norm (Negative); WBC Urine 0-4 /hpf (0-5)
--- NOTE | 2023-05-09 11:58 | ECG_ITS ---
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 Measurements Intervals [place] Rate: 49 P: 0 WV: 0 QRS: 3 QRSD: 89 T: 14 QT: 468 QTc: 424 Interpretive Statements Uninterpretable due to to baseline artifact CRITICAL TEST RESULT Compared to ECG 05/09/2023 10:53:34 Electronically Signed On 05-09-2023 16:49:52 CDT by Edilson Nguyen M.D. [id number]
[2023-05-09 12:06] VITALS: PULSE 49; O2SAT 96
[2023-05-09 12:56] LABS: Troponin 5 2HR 13.17 ng/L (0-10)
[2023-05-09 12:57] LABS: Troponin 5 2HR Delta -0.83 ABS# (0-10)
[2023-05-09 13:44] VITALS: PULSE 56; O2SAT 96
== END 2023-05-09 13:45 | disposition home or self-care (01) ==
PROVIDERS: Emergency Provider Emergency Medicine; PCP Nurse Practitioner
DX: R55 Syncope and collapse (principal); R00.1 Bradycardia, unspecified; H91.93 Unspecified hearing loss, bilateral
CPT/HCPCS: 36415; 36416; 70450; 71045; 80053; 81001; 82962; 84145; 84443; 84484; 85025; 86140; 93005; 99285

== ENCOUNTER → 2023-06-25 09:48 | Outpatient (BNVA) | payer MEDICARE, MEDICAID, SELFPAY | PROVIDERS: PCP Nurse Practitioner; Visit Provider Internal Medicine Cardiovascular Disease | DX: R55 Syncope and collapse (principal); E78.2 Mixed hyperlipidemia; F20.0 Paranoid schizophrenia; I10 Essential (primary) hypertension; I25.118 Atherosclerotic heart disease of native coronary artery with other forms of angina pectoris; Z87.891 Personal history of nicotine dependence | CPT/HCPCS: 99214 ==

== ENCOUNTER → 2023-10-24 10:59 | Outpatient (BNVA) | payer MEDICARE, MEDICAID, OTHER, SELFPAY | PROVIDERS: PCP Nurse Practitioner Family; Visit Provider Nurse Practitioner Family | DX: E55.9 Vitamin D deficiency, unspecified (principal); I10 Essential (primary) hypertension; E78.2 Mixed hyperlipidemia; E03.9 Hypothyroidism, unspecified; E53.8 Deficiency of other specified B group vitamins; E61.1 Iron deficiency; D64.9 Anemia, unspecified; Z79.899 Other long term (current) drug therapy; Z12.31 Encounter for screening mammogram for malignant neoplasm of breast | CPT/HCPCS: 80053; 80061; 81003; 82306; 82607; 82746; 83036; 83550; 84443; 85025 ==

== ENCOUNTER 2023-11-14 10:42 | Outpatient (CLI) | payer MEDICARE, MEDICAID, SELFPAY ==
--- NOTE | 2023-11-14 10:56 | MM_ITS ---
WS: [id number] RIGHT DIGITAL MAMMOGRAPHY WITH CAD. HISTORY: ANNUAL, HX OF BR CA COMPARISON: None available. Technique: CC, MLO and ML views. Breast composition: The breasts are heterogeneously dense, which may obscure small masses. Difficult mammographic evaluation due to patient's clinical condition. Extensive arterial calcifications. Benig n round punctate calcifications. IMPRESSION: MM/[place] [id number] BI-RADS: 2-Benign FOLLOW UP: 1 Year Follow-up
== END 2023-11-14 10:43 | disposition home or self-care (01) ==
LOC: RAD 10:43
PROVIDERS: PCP Nurse Practitioner Family; Visit Provider Nurse Practitioner Family
DX: Z85.3 Personal history of malignant neoplasm of breast (principal); R92.331 Mammographic heterogeneous density, right breast; R92.1 Mammographic calcification found on diagnostic imaging of breast
CPT/HCPCS: 77065

== ENCOUNTER 2023-12-24 08:24 | Emergency (ER) | payer MEDICARE, MEDICAID, SELFPAY ==
[2023-12-24 08:26] VITALS: BP 151/56; PULSE 52; RESP 16; TEMP 36.6; O2SAT 94; BMI 27.4
--- NOTE | 2023-12-24 08:35 | XRR_ITS ---
PROCEDURE INFORMATION: Exam: XR Left Hip Exam date and time: 12/24/2023 8:40 AM Age: 78 years old Clinical indication: Injury or trauma; Fall; Blunt trauma (contusions or hematomas); Left; Hip; Additional info: Trauma/pain TECHNIQUE: Imaging protocol: Radiologic exam of the left hip. Views: 2 or 3 views hip with pelvis when performed. COMPARISON: CR XR hip LT 2-3V wo/w pel* [id number] 07/19/2021 9:54 AM FINDINGS: Bones/joints: Diffuse bony demineralization without evidence of acute fracture or dislocation. Chronic fracture deformity at the distal femur with intact intramedullary nail and screw fixation showing no perihardware lucency. Degenerative change of the knee. Soft tissues: Unremarkable. Vasculature: Peripheral arterial calcifications. XR/XR hip LT 2-3V wo/w pel* [id number] IMPRESSION: 1. Osteopenia without evidence of acute fracture or dislocation. 2. Chronic distal femur fracture deformity. 3. Intact femoral hardware without evidence of complication.
--- NOTE | 2023-12-24 08:35 | PC.PHAR ---
PT IS FROM [facility].
[2023-12-24 08:37] VITALS: BP 126/51; PULSE 52; RESP 16; O2SAT 94
[2023-12-24 08:43] LABS: Basophils # 0.1 10^3/uL (0.0-0.1); Basophils % 1.2 %; Eosinophils # 0.6 10^3/uL (0.0-0.8); Eosinophils % 7.1 %; Hematocrit 39.1 % (36-47); Lymphocytes # 3.1 10^3/uL (0.8-4.8); Lymphocytes % 39.9 %; Mean Corpuscular Hemoglobin 31.2 pg (27-33); Mean Corpuscular Volume 94.4 fl (85-98); Mean Platelet Volume 11.2 fL (7.4-10.4); Monocytes # 0.9 10^3/uL (0.2-0.9); Monocytes % 11.2 %; Neutrophils # 3.14 10^3/uL (1.8-7.7); Neutrophils % 40.3 %; Nucleated Red Blood Cells % 0 %; Platelet Count 260 10^3/cmm (157-399); Red Blood Count 4.14 10^6/uL (3.85-5.65); Red Cell Distribution Width 14.6 % (12.1-15.1); White Blood Count 7.77 10^3/uL (3.29-11.43)
--- NOTE | 2023-12-24 08:56 | XRR_ITS ---
PROCEDURE INFORMATION: Exam: XR Right Knee Exam date and time: 12/24/2023 9:06 AM Age: 78 years old Clinical indication: Injury or trauma; Fall; Blunt trauma; Knee; Right TECHNIQUE: Imaging protocol: Radiologic exam of the right knee. Views: 3 views. COMPARISON: CR XR knee RT 3V* [id number] 05/17/2018 4:41 PM FINDINGS: Bones/joints: Diffuse bony demineralization without evidence of acute fracture. Moderate tricompartmental osteoarthritic change. Soft tissues: Unremarkable. Vasculature: Peripheral arterial calcifications. XR/XR knee RT 3V* [id number] IMPRESSION: Osteopenia without evidence of acute fracture or dislocation.
--- NOTE | 2023-12-24 08:56 | XRR_ITS ---
PROCEDURE INFORMATION: Exam: XR Right Hip Exam date and time: 12/24/2023 9:10 AM Age: 78 years old Clinical indication: Injury or trauma; Fall; Blunt trauma (contusions or hematomas); Right; Hip TECHNIQUE: Imaging protocol: Radiologic exam of the right hip. Views: 1 view hip with pelvis when performed. COMPARISON: CT abdomen pelvis wo con [id number] 04/11/2021 10:44 PM FINDINGS: Bones/joints: Diffuse bony demineralization without evidence of acute fracture or dislocation. Hip joint spacing and alignment are maintained. Chronic fracture deformity of the right sacrum. Chronic fracture deformity of the right pubis with associated pubic symphysis malalignment. Soft tissues: Partially visualized left femoral nail. Vasculature: Peripheral arterial calcifications. XR/XR hip RT 2-3V wo/w pel* [id number] IMPRESSION: Osteopenia without evidence of acute fracture or dislocation.
--- NOTE | 2023-12-24 08:56 | XRR_ITS ---
PROCEDURE INFORMATION: Exam: XR Left Knee Exam date and time: 12/24/2023 9:15 AM Age: 78 years old Clinical indication: Injury or trauma; Fall; Blunt trauma; Knee; Left TECHNIQUE: Imaging protocol: Radiologic exam of the left knee. Views: 3 views. COMPARISON: CR XR femur LT min 2V* [id number] 10/05/2021 11:39 AM FINDINGS: Bones/joints: Diffuse bony demineralization without evidence of acute fracture or dislocation. Chronic fracture deformity of the distal femur with intramedullary nail and screw fixation without evidence of hardware complication. Moderate tricompartmental osteoarthritic change. Soft tissues: Unremarkable. Vasculature: Peripheral arterial calcifications. XR/XR knee LT 3V* [id number] IMPRESSION: Osteopenia without evidence of acute fracture or dislocation.
--- NOTE | 2023-12-24 08:58 | ED_ITS ---
HPI - Extremity Problem 2 General: Chief complaint: Extremity Injury, Lower Stated complaint: Fall Time Seen by Provider: 12/24/23 08:27 Source: patient and family Mode of arrival: EMS History of Present Illness: 78-year-old female presents emergency ro om complaining of hip pain. She went to sit in a chair and fell and landed on her right side according to the caregiver that is with her. The initial nurses note reported left hip pain. She is also complaining of bilateral knee pain. Patient is deaf caregiver at the bedside assisted with communication with signing. No report of striking her head no loss conscious no pain in the other area at this time. MD Complaint: extremity pain Onset (ago): minute(s) Pain Consistency: constant Location: lower extremity (Bilateral knees, right hip) Relieving factors: nothing Exacerbating factors: range of motion and palpation Associated symptoms: Deny arthralgias, chest pain, fever(s), myalgias, rash or short of breath Review of Systems 2 Const: Denies: fever(s) Card: Denies: chest pain Resp: Denies: dyspnea GI: Denies: abdominal pain : Denies: dysuria, urinary frequency or urinary urgency Musc: Denies: neck pain or back pain Skin/Breast: Denies: rash PFSH ED 2 PFSH: Medical History Breast cancer screening by mammogram Fixation hardware in leg Hx of fracture of leg Urinary tract infection Hypertension screen Mixed hyperlipidemia Anemia Benign hypertension On valproate therapy Iron deficiency Hypothyroid Psychiatric care Supracondylar fracture of left femur Anemia Vitamin D deficiency CAD (coronary artery disease) Acquired hypothyroidism Bilateral deafness COPD (chronic obstructive pulmonary disease) Essential hypertension Folic acid deficiency Hyperlipidemia GERD (gastroesophageal reflux disease) Paranoid schizophrenia Surgical History S/P ORIF (open reduction internal fixation) fracture Postoperative state H/O total mastectomy of left breast Status post cholecystectomy Family History Other Family history unknown Social History Smoking and tobacco/nicotine status: former use of tobacco/nicotine Alcohol intake: unknown Substance/Drug Use: unknown Physical Exam 2 Const: COMMON NORMALS: no acute distress GENERAL APPEARANCE: cooperative and comfortable ORIENTATION/CONSCIOUSNESS: Yes awake HENMT: COMMON NORMALS: normocephalic and atraumatic HEAD & SCALP: n ormocephalic and atraumatic Resp: COMMON NORMALS: normal respiratory effort, No retractions, No use of accessory muscles and clear to auscultation bilaterally AUSCULTATION: clear to auscultation bilaterally Cardio: COMMON NORMALS: regular rate, regular rhythm and No murmurs present (Cardio) RATE: regular rate RHYTHM: regular rhythm GI: COMMON NORMALS: Soft to palpation and No hepatosplenomegaly present A USCULTATION: Yes normoactive bowel sounds PALPATION: Yes Soft to palpation, No Tenderness to palpation present (GI), No Guarding due to palpation present (GI) and Yes No hepatosplenomegaly present Extremity: COMMON NORMALS: normal to inspection, capillary refill normal, no clubbing, cyanosis or edema, no calf tenderness and no pedal edema Skin: COMMON NORMALS: no rashes or lesions noted GENERAL SKIN EXAM: no rashes or lesions noted Course 2 Vital Signs: Vital signs: Vital Signs Temperature 97.8 F 12/24/23 08:26 Pulse Rate 50 L 12/24/23 11:12 Respiratory Rate 16 12/24/23 08:37 Blood Pressure 110/78 12/24/23 11:12 Pulse Oximetry 95 12/24/23 11:12 Oxygen Delivery Me thod Room Air 12/24/23 08:37 MDM - Extremity (Nontraumatic) Medical Decision Making No acute fractures on imaging. Labs otherwise unremarkable patient able to stand and tolerate. On repeat exam range of motion only extremities without significant pain. Discharge home supportive cares Tylenol or Profen as needed follow-up with primary care if has further problems. Medical Records I reviewed the patient's medical records. Lab Data I reviewed the patient's lab results. 12/24/23 08:33 12/24/23 08:33 Radiology Impressions Hip/Pelvis X-Ray 12/24/23 08:56 IMPRESSION: Osteopenia without evidence of acute fracture or dislocation. Knee X-Ray 12/24/23 08:56 IMPRESSION: Osteopenia without evidence of acute fracture or dislocation. Laboratory Results WBC 7.77 10^3/uL (3.29-11.43) 12/24/23 08:33 RBC 4.14 10^6/uL (3.85-5.65) 12/24/23 08:33 Hgb 12.90 g/dL (11.27-16.99) 12/24/23 08:33 Hct 39.1 % (36-47) 12/24/23 08:33 MCV 94.4 fl (85-98) 12/24/23 08:33 MCH 31.2 pg (27-33) 12/24/23 08:33 MCHC 33.0 g/dL (30-55) 12/24/23 08:33 RDW 14.6 % (12.1-15.1) 12/24/23 08:33 Plt Count 260 10^3/cmm (157-399) 12/24/23 08:33 MPV 11.2 fL (7.4-10.4) H 12/24/23 08:33 Neut % (Auto) 40.3 % 12/24/23 08:33 Lymph % (Auto) 39.9 % 12/24/23 08:33 [place] % (Auto) 11.2 % 12/24/23 08:33 Eos % (Auto) 7.1 % 12/24/23 08:33 Baso % (Auto) 1.2 % 12/24/23 08:33 Neut # (Auto) 3.14 10^3/uL (1.8-7.7) 12/24/23 08:33 Lymph # (Auto) 3.1 10^3/uL (0.8-4.8) 12/24/23 08:33 [place] # (Auto) 0.9 10^3/uL (0.2-0.9) 12/24/23 08:33 Eos # (Auto) 0.6 10^3/uL (0.0-0.8) 12/24/23 08:33 Baso # (Auto) 0.1 10^3/uL (0.0-0.1) 12/24/23 08:33 Nucleated RBC % (auto) 0 % 12/24/23 08:33 Nucleated RBCs # 0.0 /100WBC 12/24/23 08:33 Sodium 136 mmol/L (136-145) 12/24/23 08:33 Potassium 3.9 mmol/L (3.5-5.1) 12/24/23 08:33 Chloride 102 mmol/L (98-107) 12/24/23 08:33 Carbon Dioxide 24 mmol/L (22-29) 12/24/23 08:33 Anion Gap 13.9 (5-19) 12/24/23 08:33 BUN 18 mg/dL (8-23) 12/24/23 08:33 Creatinine 0.6 mg/dL (0.5-0.9) 12/24/23 08:33 GFR Calculation Not Reportable 12/24/23 08:33 Glucose 75 mg/dL (65-115) 12/24/23 08:33 Calculated Osmolality 283 mOsm/kg (285-295) L 12/24/23 08:33 Calcium 9.2 mg/dL (8.5-10.5) 12/24/23 08:33 Total Bilirubin 0.3 mg/dL (0.15-1.2) 12/24/23 08:33 AST 22 U/L (0-32) 12/24/23 08:33 ALT 13 U/L (0-33) 12/24/23 08:33 Alkaline Phosphatase 76 U/L (35-105) 12/24/23 08:33 Total Protein 6.3 g/dL (6.6-8.7) L 12/24/23 08:33 Albumin 3.8 g/dL (3.5-5.2) 12/24/23 08:33 Globulin 2.5 g/dL (1.3-4.6) 12/24/23 08:33 All radiology interpretation(s) finalized by discharge Discharge Plan Discharge Patient Disposition: Home Clinical Impression: Fall, Acute hip pain, Acute knee pain Condition: Stable Prescriptions: No Action aspirin [Adult Low Dose Aspirin] 81 mg tablet,delayed release (DR/EC) 81 mg PO DAILY@06 ferrous sulfate 325 mg (65 mg iron) tablet 325 mg PO DAILY@06 multivitamin Tablet 1 tab PO DAILY@06 divalproex [Depakote ER] 250 mg tablet extended release 24 hr 250 mg PO BID Qty: 60 6RF fluoxetine [Prozac] 20 mg capsule 20 mg PO QAM Qty: 30 6RF lorazepam [Ativan] 0.5 mg tablet 0.5 mg PO BID Qty: 60 3RF perphenazine 2 mg tablet 6 mg PO .morning Qty: 90 6RF Rx Instructions: Take three tablets every morning, (total dose 6 mg in am) Breo Ellipta 200-25 mcg/dose blister with device 1 inh inhalation DAILY Qty: 28 5RF haloperidol 5 mg tablet 5 mg PO BID PRN (Reason: severe agitation) Qty: 60 3RF nitroglycerin 0.4 mg tablet, sublingual See Rx Instructions .ROUTE .COMPLEX Qty: 25 1RF Dose Instruction: DISSOLVE 1 TABLET UNDER TONGUE EVERY 5 MINUTES NEEDED FOR CHEST PAIN. MAY TAKE UP TO 3 DOSES PER EPISODE; IF NO RELIEF AFTER 3RD DOSE, CALL 911 OR SEEK EMERGENCY CARE Rx Instructions: DISSOLVE 1 TABLET UNDER TONGUE EVERY 5 MINUTES NEEDED FOR CHEST PAIN. MAY TAKE UP TO 3 DOSES PER EPISODE; IF NO RELIEF AFTER 3RD DOSE, CALL 911 OR SEEK EMERGENCY CARE calcium carbonate-vitamin D3 250 mg-3.125 mcg (125 unit) tablet See Rx Instructions .ROUTE .COMPLEX Qty: 180 1RF Dose Instruction: TAKE 1 TABLET BY MOUTH TWICE DAILY Rx Instructions: TAKE 1 TABLET BY MOUTH TWICE DAILY montelukast 10 mg tablet 10 mg PO DAILY Rx Instructions: AT 10 PM levothyroxine 25 mcg tablet 25 mcg PO DAILY pantoprazole 40 mg tablet,delayed release (DR/EC) 40 mg PO DAILY simvastatin 20 mg tablet 20 mg PO DAILY cyanocobalamin (vitamin B-12) [Vitamin B-12] 1,000 mcg Tablet 1,000 mcg PO DAILY Discharge Orders: Discharge ED (Routine); Ordered 12/24/23 Ordered By: Gregg Ramírez Referrals: KOSTAS Pereira, TRANSFER KNITTER [Primary Care Provider] - Discharge Diet: Usual diet Discharge Activity: Resume usual activity Patient Instructions: Opioid Safety, Pain Management Activity Restrictions/Additional Instructions: Thank you for choosing [facility] for your healthcare needs today. Please realize this is an emergency room and that we are providing you with a medical screening exam and this may not be complete and all inclusive of all the testing and or work up that you may need to determine your ailment or severity of your illness. It is very important that you follow up as instructed or that you return to the Emergency Department should you have concerns or if your condition changes or worsens in any way. Coding Level of Care Code ED Hemp Fiber Taker Off for Basilio Toth
[2023-12-24 09:01] LABS: Alanine Aminotransferase 13 U/L (0-33); Albumin Level 3.8 g/dL (3.5-5.2); Alkaline Phosphatase 76 U/L (35-105); Anion Gap 13.9 (5-19); Aspartate Amino Transferase 22 U/L (0-32); Blood Urea Nitrogen 18 mg/dL (8-23); Calcium 9.2 mg/dL (8.5-10.5); Carbon Dioxide 24 mmol/L (22-29); Chloride 102 mmol/L (98-107); Creatinine Clr Calc Pharmacy 54.4958; Globulin 2.5 g/dL (1.3-4.6); Glucose 75 mg/dL (65-115); Osmolality Calculated 283 mOsm/kg (285-295); Potassium 3.9 mmol/L (3.5-5.1); Sodium 136 mmol/L (136-145); Total Bilirubin 0.3 mg/dL (0.15-1.2); Total Protein 6.3 g/dL (6.6-8.7)
[2023-12-24 11:12] VITALS: BP 110/78; PULSE 50; O2SAT 95
== END 2023-12-24 11:13 | disposition home or self-care (01) ==
PROVIDERS: Emergency Provider Family Medicine; PCP Nurse Practitioner Family
DX: M25.551 Pain in right hip (principal); M25.562 Pain in left knee; M25.561 Pain in right knee; Z79.82 Long term (current) use of aspirin; Z87.891 Personal history of nicotine dependence; E78.2 Mixed hyperlipidemia; I10 Essential (primary) hypertension; I25.10 Atherosclerotic heart disease of native coronary artery without angina pectoris; J44.9 Chronic obstructive pulmonary disease, unspecified
CPT/HCPCS: 73502; 73562; 80053; 85025; 99284

== ENCOUNTER → 2024-01-24 13:57 | Outpatient (BNVA) | payer MEDICARE, MEDICAID, SELFPAY | PROVIDERS: PCP Nurse Practitioner Family; Visit Provider Internal Medicine Cardiovascular Disease | DX: I25.10 Atherosclerotic heart disease of native coronary artery without angina pectoris (principal); E78.2 Mixed hyperlipidemia; I10 Essential (primary) hypertension; I49.9 Cardiac arrhythmia, unspecified; F20.0 Paranoid schizophrenia; Z87.891 Personal history of nicotine dependence | CPT/HCPCS: 99214 ==

== ENCOUNTER → 2024-03-11 09:06 | Outpatient (BNVA) | payer MEDICARE, OTHER, SELFPAY | PROVIDERS: PCP Nurse Practitioner Family; Visit Provider Nurse Practitioner Family | DX: Z79.899 Other long term (current) drug therapy (principal) | CPT/HCPCS: 80164 ==

== ENCOUNTER → 2024-05-19 11:04 | Outpatient (BNVA) | payer MEDICARE, MEDICAID, SELFPAY | PROVIDERS: PCP Nurse Practitioner Family; Visit Provider Nurse Practitioner Family | DX: Z79.899 Other long term (current) drug therapy (principal) | CPT/HCPCS: 80053; 80164; 81003; 87086 ==

== ENCOUNTER → 2024-08-06 08:58 | Outpatient (BNVA) | payer MEDICARE, MEDICAID, SELFPAY | PROVIDERS: PCP Nurse Practitioner Family; Visit Provider Nurse Practitioner Family | DX: Z79.899 Other long term (current) drug therapy (principal) | CPT/HCPCS: 80053; 80164; 81003; 87086 ==

== ENCOUNTER 2024-10-13 12:06 | Emergency (ER) | payer MEDICARE, MEDICAID, SELFPAY ==
--- NOTE | 2024-10-13 12:08 | XR_ITS ---
WS: [id number] [place] [id number] REASON FOR EXAM: trauma FINDINGS: Fracture of the olecranon process of the proximal ulna. The humerus is intact. No dislocation of the glenohumeral or acromioclavicular joint. XR/[place] [id number] IMPRESSION: Fracture of the proximal ulna.
--- NOTE | 2024-10-13 12:08 | XR_ITS ---
WS: [id number] XR elbow LT min 3V* [id number] REASON FOR EXAM: trauma FINDINGS: Fracture of the olecranon which involves the base of the coronoid process. Significant displacement b etween the olecranon fragment and the ulna. There is an additional fracture fragment adjacent to the coronoid process. XR/XR elbow LT min 3V* [id number] IMPRESSION: Fracture of the proximal left ulna as above.
[2024-10-13 12:15] VITALS: BP 112/81; PULSE 76; RESP 16; TEMP 36.9; O2SAT 94; BMI 19.5
[2024-10-13 12:19] VITALS: BP 112/81; PULSE 76; RESP 16; TEMP 36.9; O2SAT 94
--- NOTE | 2024-10-13 12:55 | PC.PHAR ---
patient is from [facility]
[2024-10-13 13:01] LABS: Basophils # 0.1 10^3/uL (0.0-0.1); Basophils % 0.6 %; Eosinophils # 0.1 10^3/uL (0.0-0.8); Eosinophils % 0.4 %; Lymphocytes # 2.3 10^3/uL (0.8-4.8); Lymphocytes % 19.4 %; Mean Corpuscular HGB Conc 34.4 g/dL (30-55); Mean Corpuscular Hemoglobin 31.2 pg (27-33); Mean Corpuscular Volume 90.5 fl (85-98); Mean Platelet Volume 10.2 fL (7.4-10.4); Monocytes % 8.3 %; Neutrophils # 8.51 10^3/uL (1.8-7.7); Nucleated Red Blood Cells % 0 %; Platelet Count 271 10^3/cmm (157-399); Red Blood Count 3.98 10^6/uL (3.85-5.65); Red Cell Distribution Width 13.6 % (12.1-15.1)
[2024-10-13 13:14] LABS: Alanine Aminotransferase 15 U/L (0-33); Albumin Level 3.7 g/dL (3.5-5.2); Alkaline Phosphatase 72 U/L (35-105); Anion Gap 15.8 (5-19); Aspartate Amino Transferase 34 U/L (0-32); Blood Urea Nitrogen 16 mg/dL (8-23); Calcium 9.3 mg/dL (8.5-10.5); Carbon Dioxide 23 mmol/L (22-29); Chloride 93 mmol/L (98-107); Creatinine Clr Calc Pharmacy 46.2671; Globulin 2.5 g/dL (1.3-4.6); Glucose 108 mg/dL (65-115); Osmolality Calculated 266 mOsm/kg (285-295); Potassium 4.8 mmol/L (3.5-5.1); Sodium 127 mmol/L (136-145); Total Bilirubin 0.4 mg/dL (0.15-1.2); Total Protein 6.2 g/dL (6.6-8.7)
--- NOTE | 2024-10-13 13:15 | ED_ITS ---
HPI - Extremity Problem 2 General: Chief complaint: Extremity Injury, Upper Stated complaint: fall, left elbow pain Time Seen by Provider: 10/13/24 12:08 History of Present Illness: 79-year-old female presents emergency ro om after a fall at her [facility] yesterday. She has significant amount of bruising on her left elbow no report of other injury. She also has a lot of swelling at the left elbow patient has significant dementia and is noncommunicative for the most part. Related Data Home Medications Medication Instructions Recorded Confirmed aspirin 81 mg tablet,delayed 81 mg PO DAILY@10/28/19 10/13/24 release (Adult Low Dose Aspirin) ferrous sulfate 325 mg (65 mg 325 mg PO DAILY@10/28/19 10/13/24 iron) tablet multivitamin 1 tab PO DAILY@10/28/19 10/13/24 cyanocobalamin (vitamin B-12) 1,000 mcg PO DAILY 11/06/22 10/13/24 1,000 mcg tablet (Vitamin B-12) pantoprazole 40 mg tablet,delayed 40 mg PO DAILY 12/24/23 10/13/24 release calcium 250 mg (as 1 tab PO BID 10/13/24 10/13/24 carbonate)-vitamin D3 3.125 mcg (125 unit) tablet fluticasone propionate 115 2 inh inhalation BID 10/13/24 10/13/24 mcg-salmeterol 21 mcg/actuation HFA inhaler (Advair HFA) montelukast 10 mg tablet 10 mg PO DAILY 10/13/24 10/13/24 Previous Rx's Medication Instructions Recorded nitroglycerin 0.4 mg sublingual See Rx Instructions .Route 12/05/23 tablet .COMPLEX #25 tabs levothyroxine 25 mcg tablet 25 mcg PO DAILY #90 tabs 07/21/24 divalproex 250 mg tablet,delayed 250 mg PO BID #60 tabs 07/25/24 release (Depakote) fluoxetine 20 mg capsule (Prozac) 20 mg PO QAM #30 caps 07/25/24 haloperidol 5 mg tablet 5 mg PO BID PRN severe agitation 07/25/24 #60 tabs lorazepam 0.5 mg tablet (Ativan) 0.5 mg PO BID anxiety #60 tabs 07/25/24 perphenazine 2 mg tablet 6 mg (3 x 2 mg) PO .morning #90 07/25/24 tabs simvastatin 20 mg tablet 20 mg PO DAILY #90 tabs 09/30/24 cefdinir 300 mg capsule 300 mg PO BID 7 days #14 caps 10/13/24 hydrocodone 5 mg-acetaminophen 325 1 tab PO Q4H PRN pain #25 tabs 10/13/24 mg tablet Allergies Allergy/AdvReac Type Severity Reaction Status Date / Time beta blockers Allergy Unknown Uncoded 08/06/24 08:28 Review of Systems 2 General: Reports: ROS unobtainable due to mental status PFSH ED 2 PFSH: Medical History Medication management E. coli UTI Encounter for medication review Breast cancer screening by mammogram Fixation hardware in leg Hx of fracture of leg Urinary tract infection Hypertension screen Mixed hyperlipidemia Anemia Benign hypertension On valproate therapy Iron deficiency Hypothyroid Psychiatric care Supracondylar fracture of left femur Anemia Vitamin D deficiency CAD (coronary artery disease) Acquired hypothyroidism Bilateral deafness COPD (chronic obstructive pulmonary disease) Essential hypertension Folic acid deficiency Hyperlipidemia GERD (gastroesophageal reflux disease) Paranoid schizophrenia Surgical History S/P ORIF (open reduction internal fixation) fracture Postoperative state H/O total mastectomy of left breast Status post cholecystectomy Family History Other Family history unknown Social History Smoking and tobacco/nicotine status: never used tobacco/nicotine Alcohol intake: unknown Substance/Drug Use: unknown Physical Exam 2 Const: ORIENTATION/CONSCIOUSNESS: Yes awake HENMT: COMMON NORMALS: normocephalic and atraumatic HEAD & SCALP: n ormocephalic and atraumatic Resp: COMMON NORMALS: normal respiratory effort, No retractions, No use of accessory muscles and clear to auscultation bilaterally AUSCULTATION: clear to auscultation bilaterally Cardio: COMMON NORMALS: regular rate, regular rhythm and No murmurs present (Cardio) RATE: regular rate RHYTHM: regular rhythm GI: COMMON NORMALS: Soft to palpation and No hepatosplenomegaly present A USCULTATION: Yes normoactive bowel sounds PALPATION: Yes Soft to palpation, No Tenderness to palpation present (GI), No Guarding due to palpation present (GI) and Yes No hepatosplenomegaly present Extremity: OTHER: Left elbow held flex past 90 degrees. Significant amount of ecchymosis and swelling that appears to have dependent edema at the elbow no pain with palpation of the proximal humerus wrist or hand. Skin: COMMON NORMALS: no rashes or lesions noted GENERAL SKIN EXAM: no rashes or lesions noted Course 2 Vital Signs: Vital signs: Vital Signs Temperature 98.4 F 10/13/24 12:19 Pulse Rate 83 10/13/24 15:23 Respiratory Rate 16 10/13/24 17:26 Blood Pressure 138/71 10/13/24 15:23 Pulse Oximetry 99 10/13/24 17:26 Oxygen Delivery Me thod Room Air 10/13/24 17:26 MDM - Extremity (Nontraumatic) Medical Decision Making Discussed on-call orthopedics. Placed patient in a posterior long-arm splint on the affected limb scheduled for outpatient evaluation with Dr. Diego to review definitive treatment plans patient will likely need to have surgical reduction of the fracture. Additionally patient has mild hyponatremia which can be rechecked at the [facility]. She also has a cystitis which we initiated antibiotics for Medical Records I reviewed the patient's medical records. Lab Data I reviewed the patient's lab results. 10/13/24 12:50 10/13/24 12:50 Radiology Impressions Elbow X-Ray 10/13/24 12:08 IMPRESSION: Fracture of the proximal left ulna as above. Humerus X-Ray 10/13/24 12:08 IMPRESSION: Fracture of the proximal ulna. Laboratory Results WBC 12.00 10^3/uL (3.29-11.43) H 10/13/24 12:50 RBC 3.98 10^6/uL (3.85-5.65) 10/13/24 12:50 Hgb 12.40 g/dL (11.27-16.99) 10/13/24 12:50 Hct 36.0 % (36-47) 10/13/24 12:50 MCV 90.5 fl (85-98) 10/13/24 12:50 MCH 31.2 pg (27-33) 10/13/24 12:50 MCHC 34.4 g/dL (30-55) 10/13/24 12:50 RDW 13.6 % (12.1-15.1) 10/13/24 12:50 Plt Count 271 10^3/cmm (157-399) 10/13/24 12:50 MPV 10.2 fL (7.4-10.4) 10/13/24 12:50 Neut % (Auto) 71.0 % 10/13/24 12:50 Lymph % (Auto) 19.4 % 10/13/24 12:50 [place] % (Auto) 8.3 % 10/13/24 12:50 Eos % (Auto) 0.4 % 10/13/24 12:50 Baso % (Auto) 0.6 % 10/13/24 12:50 Neut # (Auto) 8.51 10^3/uL (1.8-7.7) H 10/13/24 12:50 Lymph # (Auto) 2.3 10^3/uL (0.8-4.8) 10/13/24 12:50 [place] # (Auto) 1.0 10^3/uL (0.2-0.9) H 10/13/24 12:50 Eos # (Auto) 0.1 10^3/uL (0.0-0.8) 10/13/24 12:50 Baso # (Auto) 0.1 10^3/uL (0.0-0.1) 10/13/24 12:50 Nucleated RBC % (auto) 0 % 10/13/24 12:50 Nucleated RBCs # 0.0 /100WBC 10/13/24 12:50 Sodium 127 mmol/L (136-145) L 10/13/24 12:50 Potassium 4.8 mmol/L (3.5-5.1) 10/13/24 12:50 Chloride 93 mmol/L (98-107) L 10/13/24 12:50 Carbon Dioxide 23 mmol/L (22-29) 10/13/24 12:50 Anion Gap 15.8 (5-19) 10/13/24 12:50 BUN 16 mg/dL (8-23) 10/13/24 12:50 Creatinine 0.6 mg/dL (0.5-0.9) 10/13/24 12:50 GFR Calculation Not Reportable 10/13/24 12:50 Glucose 108 mg/dL (65-115) 10/13/24 12:50 Calculated Osmolality 266 mOsm/kg (285-295) L 10/13/24 12:50 Calcium 9.3 mg/dL (8.5-10.5) 10/13/24 12:50 Total Bilirubin 0.4 mg/dL (0.15-1.2) 10/13/24 12:50 AST 34 U/L (0-32) H 10/13/24 12:50 ALT 15 U/L (0-33) 10/13/24 12:50 Alkaline Phosphatase 72 U/L (35-105) 10/13/24 12:50 Total Protein 6.2 g/dL (6.6-8.7) L 10/13/24 12:50 Albumin 3.7 g/dL (3.5-5.2) 10/13/24 12:50 Globulin 2.5 g/dL (1.3-4.6) 10/13/24 12:50 Urine Color Yellow (Yellow) 10/13/24 13:23 Urine Appearance Turbid (CLEAR) A 10/13/24 13:23 Urine pH 6.0 (5-7) 10/13/24 13:23 Ur Specific [place] 1.020 (1.005-1.030) 10/13/24 13:23 Urine Protein 1+ (Negative) A 10/13/24 13:23 Urine Glucose (UA) Negative (Normal) 10/13/24 13:23 Urine Ketones Trace (Negative) 10/13/24 13:23 Urine Blood 2+ (Negative) A 10/13/24 13:23 Urine Nitrate Positive (Negative) A 10/13/24 13:23 Urine Bilirubin Negative (Negative) 10/13/24 13:23 Urine Urobilinogen 1.0 mg/dL (Negative) 10/13/24 13:23 Ur Leukocyte Esterase 3+ (Negative) A 10/13/24 13:23 Urine RBC 0-2 /hpf (0-2) 10/13/24 13:23 Urine WBC >100 /hpf (0-5) H 10/13/24 13:23 Ur Squamous Epith Cells 0-5 /hpf (0-5) 10/13/24 13:23 Amorphous Sediment Not Reportable 10/13/24 13:23 Urine Bacteria 4+ /hpf (NONE) H 10/13/24 13:23 Hyaline Casts 5.77 /lpf 10/13/24 13:23 All radiology interpretation(s) finalized by discharge Discharge Plan Discharge Patient Disposition: Home Clinical Impression: Olecranon fracture, Cystitis, Hyponatremia Condition: Stable Prescriptions: New hydrocodone-acetaminophen 5-325 mg tablet 1 tab PO Q4H PRN (Reason: pain) Qty: 25 0RF cefdinir 300 mg capsule 300 mg PO BID 7 Days Qty: 14 0RF No Action aspirin [Adult Low Dose Aspirin] 81 mg tablet,delayed release (DR/EC) 81 mg PO DAILY@06 ferrous sulfate 325 mg (65 mg iron) tablet 325 mg PO DAILY@06 multivitamin Tablet 1 tab PO DAILY@06 divalproex [Depakote] 250 mg tablet,delayed release (DR/EC) 250 mg PO BID Qty: 60 4RF Rx Instructions: Take one tablet twice per day fluoxetine [Prozac] 20 mg capsule 20 mg PO QAM Qty: 30 6RF haloperidol 5 mg tablet 5 mg PO BID PRN (Reason: severe agitation) Qty: 60 3RF lorazepam [Ativan] 0.5 mg tablet 0.5 mg PO BID Qty: 60 3RF perphenazine 2 mg tablet 6 mg PO .morning Qty: 90 6RF Rx Instructions: Take three tablets every morning, (total dose 6 mg in am) nitroglycerin 0.4 mg tablet, sublingual See Rx Instructions .ROUTE .COMPLEX Qty: 25 1RF Dose Instruction: DISSOLVE 1 TABLET UNDER TONGUE EVERY 5 MINUTES NEEDED FOR CHEST PAIN. MAY TAKE UP TO 3 DOSES PER EPISODE; IF NO RELIEF AFTER 3RD DOSE, CALL 911 OR SEEK EMERGENCY CARE Rx Instructions: DISSOLVE 1 TABLET UNDER TONGUE EVERY 5 MINUTES NEEDED FOR CHEST PAIN. MAY TAKE UP TO 3 DOSES PER EPISODE; IF NO RELIEF AFTER 3RD DOSE, CALL 911 OR SEEK EMERGENCY CARE levothyroxine 25 mcg tablet 25 mcg PO DAILY Qty: 90 3RF simvastatin 20 mg tablet 20 mg PO DAILY Qty: 90 1RF pantoprazole 40 mg tablet,delayed release (DR/EC) 40 mg PO DAILY montelukast 10 mg tablet 10 mg PO DAILY Rx Instructions: TAKE 1 TABLET (10 MG) BY MOUTH DAILY@2100 calcium carbonate-vitamin D3 250 mg-3.125 mcg (125 unit) tablet 1 tab PO BID Rx Instructions: TAKE 1 TABLET BY MOUTH TWICE DAILY fluticasone propion-salmeterol [Advair HFA] 115-21 mcg/actuation HFA aerosol inhaler 2 inh inhalation BID Rx Instructions: USE 2 INHALATIONS BY MOUTH TWICE DAILY cyanocobalamin (vitamin B-12) [Vitamin B-12] 1,000 mcg Tablet 1,000 mcg PO DAILY Discharge Orders: Discharge ED (Routine); Ordered 10/13/24 Ordered By: Gregg Ramírez Referrals: KOSTAS Pereira, JUSTINE [Primary Care Provider] - Discharge Diet: Usual diet Discharge Activity: Resume usual activity Patient Instructions: Opioid Safety, Pain Management Activity Restrictions/Additional Instructions: Thank you for choosing [facility] for your healthcare needs today. It is very important that you follow up as instructed or that you return to the Emergency Department should you have concerns or if your condition changes or worsens in any way. You are seen in the emergency room after a fall. You have a fracture of your left elbow this was splinted oil field caser will make arrangements for you to follow-up with Dr. Diego in his office for definitive care. You are also noted to have a bladder infection for which an antibiotic was sent in for you to take 1 pill twice a day for 7 days. Finally with some mild hyponatremia your sodium should be rechecked in about 3 to 5 days Coding Level of Care Code ED Director Clinical Operations for Basilio Toth
[2024-10-13 13:32] LABS: Bilirubin Urine Negative (Negative); Blood Urine 2+ (Negative); Glucose Urine UA Negative (Normal); Ketones Urine Trace (Negative); Leukocyte Esterase Urine 3+ (Negative); Nitrate Urine Positive (Negative); Protein Urine 1+ (Negative); Urine Appearance Turbid (CLEAR); Urine Color Yellow (Yellow)
[2024-10-13 13:34] LABS: Add Urine Microscopic? YES; Bacteria Urine 4+ /hpf; Hyaline Casts Urine 5.77 /lpf; RBC Urine 0-2 /hpf (0-2); Squamous Epithelial Cell Urine 0-5 /hpf (0-5); WBC Urine >100 /hpf (0-5)
[2024-10-13 13:53] LABS: Add Urine Culture? Yes; UA Slide Review UA Slide Review Perf
[2024-10-13] MEDS: morphine 4 mg/mL SDV 1 mL IVP (14:07)
[2024-10-13 14:40] VITALS: PULSE 75; O2SAT 96
[2024-10-13 15:23] VITALS: BP 138/71; PULSE 83; O2SAT 95
[2024-10-13 17:26] VITALS: RESP 16; O2SAT 99
--- NOTE | 2024-10-13 17:27 | PC.NURSE ---
PATIENT RESTING IN BED WITH CAST IN PLACE. PATIENT RESPIRATIONS EVEN AND UNLABORED.
== END 2024-10-13 17:57 | disposition home or self-care (01) ==
PROVIDERS: Emergency Provider Family Medicine; PCP Nurse Practitioner Family
DX: S52.022A Displaced fracture of olecranon process without intraarticular extension of left ulna, initial encounter for closed fracture (principal); N30.90 Cystitis, unspecified without hematuria; Z79.82 Long term (current) use of aspirin; I25.10 Atherosclerotic heart disease of native coronary artery without angina pectoris; I10 Essential (primary) hypertension; J44.9 Chronic obstructive pulmonary disease, unspecified; W19.XXXA Unspecified fall, initial encounter
CPT/HCPCS: 29105; 36415; 51701; 73060; 73080; 80053; 81001; 85025; 87077; 87086; 87186; 96374; 99284; J2270

== ENCOUNTER → 2024-10-21 07:52 | Outpatient (BNVA) | payer MEDICARE, MEDICAID, OTHER, SELFPAY | PROVIDERS: PCP Nurse Practitioner Family; Visit Provider Orthopaedic Surgery | DX: M25.529 Pain in unspecified elbow; S52.202A Unspecified fracture of shaft of left ulna, initial encounter for closed fracture; W19.XXXA Unspecified fall, initial encounter | CPT/HCPCS: 36415; 73080; 80053; 81001; 85025; 99204 ==

== ENCOUNTER 2024-10-21 10:22 | Outpatient (CLI) | payer MEDICARE, MEDICAID, OTHER, SELFPAY | END 2024-10-21 10:23 | disposition home or self-care (01) | LOC: SPT 10:23 | PROVIDERS: PCP Nurse Practitioner Family; Visit Provider Orthopaedic Surgery | DX: Z46.89 Encounter for fitting and adjustment of other specified devices (principal); S42.402D Unspecified fracture of lower end of left humerus, subsequent encounter for fracture with routine healing; X58.XXXD Exposure to other specified factors, subsequent encounter | CPT/HCPCS: 97760; L3761 ==

== ENCOUNTER 2024-10-24 09:58 | Day surgery (SDC) | payer MEDICARE, MEDICAID, SELFPAY ==
[2024-10-24] VITALS (14 sets, daily range): BP systolic 122–168; BP diastolic 61–95; PULSE 72–87; RESP 16–22; TEMP 36.1–37; O2SAT 90–96; BMI 19.5
--- NOTE | 2024-10-24 10:40 | P.ANESASSM_ITS ---
Pre-Anesthetic Assessment Height/Weight: Height 1.6 m Weight 49.895 kg O2 Del Method Room Air 10/24/24 10:30 Preop Diagnosis: Left olecranon fracture Operation Date: 10/24/24 11:35 Proposed Procedures p ORIF Elbow ORIF Olecranon Fracture(Left) - Shukri Diego DO Familial anesthetic complications: none Was Beta Audrey taken within 24 hours: N/A Was Clonidine taken within 24 hours: N/A Last intake: Intake Last Liquid Date 10/23/24 Last Liquid Time 17:30 Last Solid Date 10/23/24 Last Solid Time 17:30 Social No alcohol and No tobacco Exam alert, oriented x 3, clear to auscultation bilaterally and regular rate & rhythm Airway Mallampati: Class I Dentition: other (none) Pulmonary Chronic Obstructive Pulmonary Disease CV/HEM Arrythmia, Coronary Artery Disease and Hypertension GI Gastroesophageal Reflux Disease Anesthetic Plan ASA status: 3 Anesthesia: General and Regional (specify below) Risk of > 500 ml blood loss (7ml/kg in children): No Medications/Allergies Home Medications Medication Instructions Recorded Confirmed Last Taken Type aspirin 81 mg tablet,delayed 81 mg PO DAILY@10/28/19 10/23/24 10/21/24 History release (Adult Low Dose Aspirin) ferrous sulfate 325 mg (65 mg 325 mg PO DAILY@10/28/19 10/23/24 10/22/24 History iron) tablet multivitamin 1 tab PO DAILY@10/28/19 10/23/24 10/22/24 History cyanocobalamin (vitamin B-12) 1,000 mcg PO DAILY 11/06/22 10/23/24 10/22/24 History 1,000 mcg tablet (Vitamin B-12) nitroglycerin 0.4 mg sublingual See Rx Instructions .Route 12/05/23 10/23/24 Unknown Rx tablet .COMPLEX #25 tabs pantoprazole 40 mg tablet,delayed 40 mg PO DAILY 12/24/23 10/23/24 10/22/24 Hist ory release levothyroxine 25 mcg tablet 25 mcg PO DAILY #90 tabs 07/21/24 10/23/24 10/22/24 Rx divalproex 250 mg tablet,delayed 250 mg PO BID #60 tabs 07/25/24 10/23/24 10/22/24 Rx release (Depakote) fluoxetine 20 mg capsule (Prozac) 20 mg PO QAM #30 caps 07/25/24 10/23/24 10/22/24 Rx haloperidol 5 mg tablet 5 mg PO BID PRN severe agitation 07/25/24 10/23/24 10/22/24 Rx #60 tabs lorazepam 0.5 mg tablet (Ativan) 0.5 mg PO BID anxiety #60 tabs 07/25/24 10/23/24 10/22/24 Rx perphenazine 2 mg tablet 6 mg (3 x 2 mg) PO .morning #90 07/25/24 10/23/24 10/22/24 Rx tabs simvastatin 20 mg tablet 20 mg PO DAILY #90 tabs 09/30/24 10/23/24 10/22/24 Rx calcium 250 mg (as 1 tab PO BID 10/13/24 10/23/24 10/22/24 History carbonate)-vitamin D3 3.125 mcg (125 unit) tablet fluticasone propionate 115 2 inh inhalation BID 10/13/24 10/23/24 10/22/24 History mcg-salmeterol 21 mcg/actuation HFA inhaler (Advair HFA) hydrocodone 5 mg-acetaminophen 325 1 tab PO Q4H PRN pain #25 tabs 10/13/24 10/23/24 10/22/24 Rx mg tablet montelukast 10 mg tablet 10 mg PO DAILY 10/13/24 10/23/24 10/22/24 History hinged elbow brace #1 ea 10/21/24 10/21/24 Unknown Rx Allergies Allergy/AdvReac Type Severity Reaction Status Date / Time beta blockers Allergy Unknown Uncoded 10/21/24 08:06 [facility] Anesthesia Medical History Medication management E. coli UTI Encounter for medication review Breast cancer screening by mammogram Fixation hardware in leg Hx of fracture of leg Urinary tract infection Hypertension screen Mixed hyperlipidemia Anemia Benign hypertension On valproate therapy Iron deficiency Hypothyroid Psychiatric care Supracondylar fracture of left femur Anemia Vitamin D deficiency CAD (coronary artery disease) Acquired hypothyroidism Bilateral deafness COPD (chronic obstructive pulmonary disease) Essential hypertension Folic acid deficiency Hyperlipidemia GERD (gastroesophageal reflux disease) Paranoid schizophrenia Surgical History S/P ORIF (open reduction internal fixation) fracture Postoperative state H/O total mastectomy of left breast Status post cholecystectomy Family History Other Family history unknown Social History Smoking and tobacco/nicotine status: never used tobacco/nicotine Alcohol intake: unknown Substance/Drug Use: unknown Data Anesthesia Cardiac Studies: Echocardiogram 11/01/21 Cardiac Event Monitor 11/02/21
[2024-10-24] MEDS: sodium chloride 0.9% 1,000 ML 30 ML IV (10:49)
--- NOTE | 2024-10-24 11:09 | ANES.PREANE2 ---
Pre-Anesthetic Assessment Height/Weight: Height 1.6 m Weight 49.895 kg O2 Del Method Room Air 10/24/24 10:30 Preop Diagnosis: Left olecranon fracture Operation Date: 10/24/24 11:35 Proposed Procedures p ORIF Elbow ORIF Olecranon Fracture(Left) - Shukri Diego DO Familial anesthetic complications: None Was Beta Audrey taken within 24 hours: N/A Was Clonidine taken within 24 hours: N/A Last intake: Intake Last Liquid Date 10/23/24 Last Liquid Time 17:30 Last Solid Date 10/23/24 Last Solid Time 17:30 Social No alcohol and No tobacco Exam alert, oriented x 3, clear to auscultation bilaterally and regular rate & rhythm Airway Mallampati: Class II Dentition: other (no teeth) Pulmonary Chronic Obstructive Pulmonary Disease CV/HEM Anemia, Coronary Artery Disease and Hypertension GI Gastroesophageal Reflux Disease Medications/Allergies Home Medications Medication Instructions Recorded Confirmed Last Taken Type aspirin 81 mg tablet,delayed 81 mg PO DAILY@10/28/19 10/23/24 10/21/24 History release (Adult Low Dose Aspirin) ferrous sulfate 325 mg (65 mg 325 mg PO DAILY@10/28/19 10/23/24 10/22/24 History iron) tablet multivitamin 1 tab PO DAILY@10/28/19 10/23/24 10/22/24 History cyanocobalamin (vitamin B-12) 1,000 mcg PO DAILY 11/06/22 10/23/24 10/22/24 History 1,000 mcg tablet (Vitamin B-12) nitroglycerin 0.4 mg sublingual See Rx Instructions .Route 12/05/23 10/24/24 4 Years Ago Rx tablet .COMPLEX #25 tabs ~10/24/20 pantoprazole 40 mg tablet,delayed 40 mg PO DAILY 12/24/23 10/23/24 10/23/24 History release levothyroxine 25 mcg tablet 25 mcg PO DAILY #90 tabs 07/21/24 10/23/24 10/23/24 Rx divalproex 250 mg tablet,delayed 250 mg PO BID #60 tabs 07/25/24 10/23/24 10/23/24 Rx release (Depakote) fluoxetine 20 mg capsule (Prozac) 20 mg PO QAM #30 caps 07/25/24 10/23/2410/22/25 Rx haloperidol 5 mg tablet 5 mg PO BID PRN severe agitation 07/25/24 10/23/24 10/21/24 Rx #60 tabs lorazepam 0.5 mg tablet (Ativan) 0.5 mg PO BID anxiety #60 tabs 07/25/24 10/23/24 10/23/24 Rx perphenazine 2 mg tablet 6 mg (3 x 2 mg) PO .morning #90 07/25/24 10/23/24 10/22/24 Rx tabs simvastatin 20 mg tablet 20 mg PO DAILY #90 tabs 09/30/24 10/23/24 10/23/24 Rx calcium 250 mg (as 1 tab PO BID 10/13/24 10/23/24 10/22/24 History carbonate)-vitamin D3 3.125 mcg (125 unit) tablet fluticasone propionate 115 2 inh inhalation BID 10/13/24 10/23/24 10/22/24 History mcg-salmeterol 21 mcg/actuation HFA inhaler (Advair HFA) hydrocodone 5 mg-acetaminophen 325 1 tab PO Q4H PRN pain #25 tabs 10/13/24 10/23/24 10/22/24 Rx mg tablet montelukast 10 mg tablet 10 mg PO DAILY 10/13/24 10/23/24 10/23/24 History hinged elbow brace #1 ea 10/21/24 10/21/24 Unknown Rx Allergies Allergy/AdvReac Type Severity Reaction Status Date / Time beta blockers Allergy Unknown Uncoded 10/21/24 08:06 Current Medications Generic Name Dose Route Start Last Admin Trade Name Alexanderq PRN Reason Stop Dose Admin Sodium Chloride 1,000 mls @ 30 mls/hr 10/24/24 10:15 10/24/24 10:49 Sodium Chloride 0.9% IV 10/25/24 10:14 30 mls/hr .Q24H AYLA Administration PFSH Anesthesia Medical History Medication management E. coli UTI Encounter for medication review Breast cancer screening by mammogram Fixation hardware in leg Hx of fracture of leg Urinary tract infection Hypertension screen Mixed hyperlipidemia Anemia Benign hypertension On valproate therapy Iron deficiency Hypothyroid Psychiatric care Supracondylar fracture of left femur Anemia Vitamin D deficiency CAD (coronary artery disease) Acquired hypothyroidism Bilateral deafness COPD (chronic obstructive pulmonary disease) Essential hypertension Folic acid deficiency Hyperlipidemia GERD (gastroesophageal reflux disease) Paranoid schizophrenia Surgical History S/P ORIF (open reduction internal fixation) fracture Postoperative state H/O total mastectomy of left breast Status post cholecystectomy Family History Other Family history unknown Social History Smoking and tobacco/nicotine status: never used tobacco/nicotine Alcohol intake: unknown Substance/Drug Use: unknown Data Anesthesia Cardiac Studies: Echocardiogram 11/01/21 Cardiac Event Monitor 11/02/21
--- NOTE | 2024-10-24 11:15 | ANES.PROC ---
Anesthesia Procedures Procedure/Date: 10/24/24 Nerve Block ^: Nerve Block 1: Main Anesthesia: general anesthesia Time Out Performed: Yes Consent: requested by attending/covering physician, from patient, from other, risks and benefits reviewed and patient agrees to proceed Nerve block location: supraclavicular (L) Anesthesia monitors applied: pulse oximetry, EKG and BP cuff Nerve block position: semi sitting Anesthetic Used: ropivicaine 0.5% (20 ml) and with decadron (4 mg) Ultrasound used to: recognize landmarks, visualize and ID brachial plexus and in supraclavicular region Nerve Stimulator Used?: No Interscalene/Femoral BLK: 4 stimuplex 21 g needle used for position and inplane approach, visualize local anesthetic spread and no vascular puncture identified Injection: neg aspiration of heme Complications: none Additional Comments: Patient unable to position arm appropriately for axillary block without undue discomfort. Performed supraclavicular block instead
--- NOTE | 2024-10-24 11:28 | W.PM.OPSUD ---
Surgery/Procedure H&P Update DATE OF PROCEDURE: October 24, 2024 DATE H&P PERFORMED: 10/21/24 H&P UPDATE INFORMATION: I have reviewed H&P completed within last 30 days, I have examined patient prior to procedure and No changes to prior documentation PREOP DIAGNOSIS: Left olecranon fracture PLANNED PROCEDURE: Operation Date: 10/24/24 11:35 Proposed Procedures p ORIF Elbow ORIF Olecranon Fracture(Left) - Shukri Diego DO
[2024-10-24] MEDS: ceFAZolin 2,000 mg SDV 2000 MG IVP (11:31)
[2024-10-24] MEDS: VANCOMYCIN ADD-Vantage 1,000 MG VIAL 1000 MG XX (12:45)
--- NOTE | 2024-10-24 12:57 | XR_ITS ---
WS: [id number] Lumbar spine, Dr. Diego performed vertebroplasty, 10/24/2024 Clinical Data: OR PICS Comparison: None. Findings: Dr. Diego performed vertebroplasty on the lumbar vertebral bodies. XR/XR lumbar spine 2-3V* [id number] Impression: Lumbar vertebroplasties.
--- NOTE | 2024-10-24 12:58 | PM.OP ---
Operative Report Date of procedure: October 24, 2024 Pre-op diagnosis: Olecranon fracture on the left Post-op diagnosis: same Procedure done: Open reduction internal fixation of left olecranon fracture Surgeon: Shukri Diego DO Estimated blood loss (mL): 25 Procedure: Open reduction internal fixation of left olecranon fracture. Patient brought the op suite after undergoing anesthesia patient was placed in supine position. All areas impingement well-padded. Patient's prepped draped in also fashion. We not use a tourniquet during this case because the patient had mastectomies. At this point skin incision was made over the left olecranon chin incision over the likely on towards the radial side ordered of avoid the ulnar nerve. Skin incision made down to bone fracture was identified fracture was reduced. [id number] reduction clamps and K wires used to hold the fracture reduced. Next the plate was placed on the bone and drill holes were passed followed by screws. 2 screws were placed from the proximal end of the olecranon into the shaft of the ulna. And then 3 screws were placed into the shaft of the ulna to hold the fracture reduced. AP lateral fluoroscopy ensured that the screws were in good position. Fracture was it was reduced. Wounds were irrigated closed with Vicryl and nylon suture. Sterile dressings were applied patient was placed in a posterior splint and transferred to the PACU in stable condition.
[2024-10-24] MEDS: fentaNYL 50 mcg/mL INJ 2mL IVP (13:42)
== END 2024-10-24 15:00 | disposition home or self-care (01) ==
PROVIDERS: PCP Nurse Practitioner Family; Visit Provider Orthopaedic Surgery
PROC: (CPT 24685; principal; 2024-10-24 11:25)
DX: S52.022A Displaced fracture of olecranon process without intraarticular extension of left ulna, initial encounter for closed fracture (principal); X58.XXXA Exposure to other specified factors, initial encounter; J44.9 Chronic obstructive pulmonary disease, unspecified; I25.10 Atherosclerotic heart disease of native coronary artery without angina pectoris; I10 Essential (primary) hypertension; K21.9 Gastro-esophageal reflux disease without esophagitis; Z79.82 Long term (current) use of aspirin; E78.2 Mixed hyperlipidemia; E03.9 Hypothyroidism, unspecified
CPT/HCPCS: 24685; 72100; 76000; C1713; J0690; J1100; J2704; J2795; J3010; J3370; J3490; J7030

== ENCOUNTER → 2024-11-13 10:19 | Outpatient (BNVA) | payer MEDICARE, MEDICAID, SELFPAY | PROVIDERS: PCP Nurse Practitioner Family; Visit Provider Orthopaedic Surgery | DX: S52.032D Displaced fracture of olecranon process with intraarticular extension of left ulna, subsequent encounter for closed fracture with routine healing (principal); X58.XXXD Exposure to other specified factors, subsequent encounter | CPT/HCPCS: 99024 ==

== ENCOUNTER → 2024-11-24 09:56 | Outpatient (BNVA) | payer MEDICARE, MEDICAID, SELFPAY | PROVIDERS: PCP Nurse Practitioner Family; Visit Provider Nurse Practitioner Family | DX: E55.9 Vitamin D deficiency, unspecified (principal); I10 Essential (primary) hypertension; E78.2 Mixed hyperlipidemia; E03.9 Hypothyroidism, unspecified; Z79.899 Other long term (current) drug therapy | CPT/HCPCS: 80053; 80061; 82306; 83036; 84443; 85025 ==

== ENCOUNTER → 2024-11-25 08:28 | Outpatient (BNVA) | payer MEDICARE, MEDICAID, SELFPAY | PROVIDERS: PCP Nurse Practitioner Family; Visit Provider Orthopaedic Surgery | DX: S52.032D Displaced fracture of olecranon process with intraarticular extension of left ulna, subsequent encounter for closed fracture with routine healing (principal); X58.XXXD Exposure to other specified factors, subsequent encounter; M25.522 Pain in left elbow | CPT/HCPCS: 73080; 99024 ==

== ENCOUNTER 2024-11-29 06:30 | Outpatient (RCR) | payer MEDICARE, MEDICAID, SELFPAY | END 2024-12-29 23:59 | disposition home or self-care (01) | LOC: WPT 06:30 | PROVIDERS: PCP Nurse Practitioner Family; Visit Provider Orthopaedic Surgery | DX: S62.92XD Unspecified fracture of left hand, subsequent encounter for fracture with routine healing (principal); X58.XXXD Exposure to other specified factors, subsequent encounter | CPT/HCPCS: 97110; 97161 ==

== ENCOUNTER → 2024-12-11 10:21 | Outpatient (BNVA) | payer MEDICARE, MEDICAID, SELFPAY | PROVIDERS: PCP Nurse Practitioner Family; Visit Provider Orthopaedic Surgery | DX: S52.032D Displaced fracture of olecranon process with intraarticular extension of left ulna, subsequent encounter for closed fracture with routine healing (principal); X58.XXXD Exposure to other specified factors, subsequent encounter | CPT/HCPCS: 73080; 99024 ==

== ENCOUNTER 2024-12-16 08:50 | Outpatient (CLI) | payer MEDICARE, MEDICAID, SELFPAY ==
--- NOTE | 2024-12-16 08:57 | MM_ITS ---
WS: [id number] RIGHT 2D mammography with CAD. HISTORY: HX OF BR CA COMPARISON: 11/14/2023, 01/29/2023, 01/12/2022 Technique: CC, MLO and ML views. Breast composition: The breasts are heterogeneously dense, which may obscure small masses. Dense benign calcifications and arterial calcifications within the RIGHT breast. No suspicious masses or calcifications. MM/[place] [id number] IMPRESSION: BI-RADS: 2 - Benign FOLLOW UP: 1 Year Follow-up
== END 2024-12-16 08:51 | disposition home or self-care (01) ==
PROVIDERS: PCP Nurse Practitioner Family; Visit Provider Nurse Practitioner Family
DX: Z85.3 Personal history of malignant neoplasm of breast (principal); R92.333 Mammographic heterogeneous density, bilateral breasts; R92.1 Mammographic calcification found on diagnostic imaging of breast
CPT/HCPCS: 77061; 77065; G0279

== ENCOUNTER → 2024-12-18 10:09 | Outpatient (BNVA) | payer MEDICARE, MEDICAID, SELFPAY | PROVIDERS: PCP Nurse Practitioner Family; Visit Provider Nurse Practitioner Family | DX: I10 Essential (primary) hypertension (principal); E78.2 Mixed hyperlipidemia; E03.9 Hypothyroidism, unspecified; E55.9 Vitamin D deficiency, unspecified | CPT/HCPCS: 81003; 87077; 87086; 87184 ==

== ENCOUNTER 2024-12-30 06:00 | Outpatient (RCR) | payer MEDICARE, MEDICAID, SELFPAY | END 2025-01-28 23:59 | disposition home or self-care (01) | LOC: WPT 06:00 | PROVIDERS: PCP Nurse Practitioner Family; Visit Provider Orthopaedic Surgery | DX: S62.92XD Unspecified fracture of left hand, subsequent encounter for fracture with routine healing (principal); X58.XXXD Exposure to other specified factors, subsequent encounter | CPT/HCPCS: 97110; 97140; 97530 ==

== ENCOUNTER 2025-01-29 06:30 | Outpatient (RCR) | payer MEDICARE, MEDICAID, SELFPAY | END 2025-02-03 12:55 | disposition home or self-care (01) | LOC: WPT 06:30 | PROVIDERS: PCP Nurse Practitioner Family; Visit Provider Orthopaedic Surgery | DX: S62.91XD Unspecified fracture of right hand, subsequent encounter for fracture with routine healing (principal); X58.XXXD Exposure to other specified factors, subsequent encounter | CPT/HCPCS: 97110; 97140; 97530 ==

== ENCOUNTER → 2025-03-12 10:37 | Outpatient (BNVA) | payer MEDICARE, MEDICAID, SELFPAY | PROVIDERS: PCP Nurse Practitioner Family; Visit Provider Orthopaedic Surgery | DX: Z98.890 Other specified postprocedural states (principal) | CPT/HCPCS: 73080; 99213 ==

== ENCOUNTER → 2025-04-08 09:52 | Outpatient (BNVA) | payer MEDICARE, MEDICAID, SELFPAY | PROVIDERS: PCP Nurse Practitioner Family; Visit Provider Internal Medicine Cardiovascular Disease | DX: I25.10 Atherosclerotic heart disease of native coronary artery without angina pectoris (principal); E78.2 Mixed hyperlipidemia; I10 Essential (primary) hypertension; I49.9 Cardiac arrhythmia, unspecified; F20.0 Paranoid schizophrenia | CPT/HCPCS: 99213 ==

== ENCOUNTER 2025-05-15 13:44 | Emergency (ER) | payer MEDICARE, MEDICAID, SELFPAY ==
[2025-05-15] VITALS (7 sets, daily range): BP systolic 111–179; BP diastolic 79–111; PULSE 64–122; RESP 21–29; TEMP 36.7; O2SAT 92–96
--- NOTE | 2025-05-15 13:50 | XR_ITS ---
WS: [id number] Portable AP semiupright chest, 05/15/2025 Clinical Data: dyspnea/cough Comparison: Portable chest, 05/09/2023 Findings: No nodules, masses or effusions are seen. The heart is normal. The pulmonary vascularity is not increased. No pneumonia or pneumothorax is seen. There are calcified granulomas in the lungs. The aortic arch and descending thoracic aorta show tortuosity. Monitor leads are on the chest wall. XR/XR chest 1V portable [id number] Impression: Atherosclerosis.
--- NOTE | 2025-05-15 13:51 | ECG_ITS ---
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 Measurements Intervals [place] Rate: 87 P: 72 RI: 153 QRS: 5 QRSD: 86 T: 73 QT: 388 QTc: 468 Interpretive Statements SINUS RHYTHM Compared to ECG 05/09/2023 11:58:17 SEVERE TRACING ARTIFACT NO LONGER PRESENT Electronically Signed On 05-15-2025 14:36:20 CDT by Jacky Casas M.D. [id number]
[2025-05-15 14:13] LABS: Hematocrit 37.6 % (36-47); Hemoglobin 12.10 g/dL (11.27-16.99); Mean Corpuscular HGB Conc 32.2 g/dL (30-55); Mean Corpuscular Hemoglobin 30.6 pg (27-33); Mean Corpuscular Volume 94.9 fl (85-98); Nucleated Red Blood Cells % 0 %; Platelet Count 275 10^3/cmm (157-399); Red Blood Count 3.96 10^6/uL (3.85-5.65); White Blood Count 10.09 10^3/uL (3.29-11.43)
[2025-05-15 14:38] LABS: Glucose Urine UA Negative (Normal); Nitrate Urine Positive (Negative); Specific Gravity, Urine 1.017 (1.005-1.030)
[2025-05-15 14:39] LABS: Troponin(5th) Baseline 33 ng/L (0-10)
[2025-05-15 14:43] LABS: Alanine Aminotransferase 11 U/L (0-33); Albumin Level 3.9 g/dL (3.5-5.2); Alkaline Phosphatase 94 U/L (35-105); Anion Gap 15.9 (5-19); Aspartate Amino Transferase 25 U/L (0-32); Blood Urea Nitrogen 23 mg/dL (8-23); Calcium 9.1 mg/dL (8.5-10.5); Carbon Dioxide 26 mmol/L (22-29); Chloride 105 mmol/L (98-107); Creatinine Clr Calc Pharmacy 51.9836; Globulin 2.2 g/dL (1.3-4.6); Glucose 87 mg/dL (65-115); Lipase 16 U/L (13-60); Osmolality Calculated 299 mOsm/kg (285-295); Potassium 3.9 mmol/L (3.5-5.1); Sodium 143 mmol/L (136-145); Total Protein 6.1 g/dL (6.6-8.7)
--- NOTE | 2025-05-15 14:43 | PC.PHAR ---
Pt is resident at [facility]
[2025-05-15 14:45] LABS: Lactic Sepsis W/Reflex 1.2 mmol/L (0.5-2.2)
[2025-05-15 14:59] LABS: UA Manual Slide Review YES
[2025-05-15 15:00] LABS: Add Urine Microscopic? YES
--- NOTE | 2025-05-15 15:32 | W.ED.AMS ---
HPI - Altered Mental Status General: Chief Complaint: Altered Mental Status Stated Complaint: AMS Time Seen by Provider: 05/15/25 13:50 History of Present Illness: 79-year-old female presents emergency room [facility]. Patient has a history of dementia severe hearing loss does not communicate well. She also has some schizophrenia. They reported she did not seem normal she had an unresponsive episode earlier today her vital signs been relatively stable blood pressure 104/60 pulse 62 glucose 247. Glucose is 84 on arrival here. Unable to get any meaningful history from patient she is not able to respond to any verbal questions. Related Data Home Medications ?Medication ?Instructions ?Recorded ?Confirmed calcium 250 mg (as 1 tab PO BID 10/13/24 05/15/25 carbonate)-vitamin D3 3.125 mcg (125 unit) tablet lorazepam 1 mg tablet 1 mg PO BID 04/08/25 05/15/25 olanzapine 10 mg tablet 10 mg PO BID 04/08/25 05/15/25 tramadol 50 mg tablet 50 mg PO TID PRN Pain 04/08/25 05/15/25 acetaminophen 500 mg tablet 1,000 mg PO Q6H PRN pain or temp 05/15/25 05/15/25 fluticasone propionate 115 2 puff inhalation BID 05/15/25 05/15/25 mcg-salmeterol 21 mcg/actuation HFA inhaler (Advair HFA) levothyroxine 25 mcg tablet 25 mcg PO QAM 05/15/25 05/15/25 montelukast 10 mg tablet 10 mg PO BEDTIME 05/15/25 05/15/25 pantoprazole 40 mg tablet,delayed 40 mg PO DAILY 05/15/25 05/15/25 release simvastatin 20 mg tablet 20 mg PO BEDTIME 05/15/25 05/15/25 Previous Rx's ?Medication ?Instructions ?Recorded divalproex 250 mg tablet,delayed 250 mg PO BID #60 tabs 01/23/25 release (Depakote) fluoxetine 20 mg capsule (Prozac) 20 mg PO QAM #30 caps 01/23/25 perphenazine 2 mg tablet 6 mg (3 x 2 mg) PO .morning #90 01/23/25 tabs Wheelchair #1 ea 02/19/25 Allergies Allergy/AdvReac Type Severity Reaction Status Date / Time beta blockers Allergy Unknown Uncoded 04/08/25 10:23 Review of Systems General: Reports: ROS unobtainable due to medical condition and ROS unobtainable due to mental status PFSH ED PFSH: Medical History At risk for falls HX: breast cancer Medication management E. coli UTI Encounter for medication review Breast cancer screening by mammogram Fixation hardware in leg Hx of fracture of leg Urinary tract infection Hypertension screen Mixed hyperlipidemia Anemia Benign hypertension On valproate therapy Iron deficiency Hypothyroid Psychiatric care Supracondylar fracture of left femur Anemia Vitamin D deficiency CAD (coronary artery disease) Acquired hypothyroidism Bilateral deafness COPD (chronic obstructive pulmonary disease) Essential hypertension Folic acid deficiency Hyperlipidemia GERD (gastroesophageal reflux disease) Paranoid schizophrenia Surgical History Hx of left mastectomy S/P ORIF (open reduction internal fixation) fracture Postoperative state H/O total mastectomy of left breast Status post cholecystectomy Family History Other Family history unknown Social History Smoking and tobacco/nicotine status: unknown if used tobacco/nicotine Alcohol intake: unknown Substance/Drug Use: unknown Physical Exam HENMT: COMMON NORMALS: normocephalic, atraumatic and hearing grossly normal bilaterally HEAD & SCALP: normocephalic and atraumatic Resp: COMMON NORMALS: normal respiratory effort, No retractions, No use of accessory muscles and clear to auscultation bilaterally AUSCULTATION: clear to auscultation bilaterally Cardio: COMMON NORMALS: regular rate, regular rhythm and No murmurs present (Cardio) RATE: regular rate RHYTHM: regular rhythm GI: COMMON NORMALS: Soft to palpation and No hepatosplenomegaly present AUSCULTATION: Yes normoactive bowel sounds PALPATION: Yes Soft to palpation, No Tenderness to palpation present (GI), No Guarding due to palpation present (GI) and Yes No hepatosplenomegaly present Extremity: COMMON NORMALS: normal to inspection, capillary refill normal, no clubbing, cyanosis or edema, no calf tenderness and no pedal edema Skin: COMMON NORMALS: no rashes or lesions noted GENERAL SKIN EXAM: no rashes or lesions noted Course Vital Signs: Vital signs: Vital Signs Temperature 98.0 F 05/15/25 13:45 Pulse Rate 87 05/15/25 18:15 Respiratory Rate 29 H 05/15/25 17:48 Blood Pressure 157/83 05/15/25 18:15 Pulse Oximetry 95 05/15/25 18:15 Oxygen Delivery Me thod Room Air 05/15/25 17:48 MDM - Altered Mental Status Medical Decision Making No leukocytosis moderate dementia. Patient does have a cystitis we will start on antibiotics initially given Rocephin and discharged home on oral antibiotics Lab Data 05/15/25 14:04 05/15/25 14:04 Radiology Impressions Chest X-Ray 05/15/25 13:50 Impression: Atherosclerosis. Laboratory Results WBC 10.09 10^3/uL (3.29-11.43) 05/15/25 14:04 RBC 3.96 10^6/uL (3.85-5.65) 05/15/25 14:04 Hgb 12.10 g/dL (11.27-16.99) 05/15/25 14:04 Hct 37.6 % (36-47) 05/15/25 14:04 MCV 94.9 fl (85-98) 05/15/25 14:04 MCH 30.6 pg (27-33) 05/15/25 14:04 MCHC 32.2 g/dL (30-55) 05/15/25 14:04 RDW 14.3 % (12.1-15.1) 05/15/25 14:04 Plt Count 275 10^3/cmm (157-399) 05/15/25 14:04 MPV 9.8 fL (7.4-10.4) 05/15/25 14:04 Neut % (Auto) 58.0 % 05/15/25 14:04 Lymph % (Auto) 29.9 % 05/15/25 14:04 Harvey % (Auto) 9.7 % 05/15/25 14:04 Eos % (Auto) 1.4 % 05/15/25 14:04 Baso % (Auto) 0.7 % 05/15/25 14:04 Neut # (Auto) 5.85 10^3/uL (1.8-7.7) 05/15/25 14:04 Lymph # (Auto) 3.0 10^3/uL (0.8-4.8) 05/15/25 14:04 Harvey # (Auto) 1.0 10^3/uL (0.2-0.9) H 05/15/25 14:04 Eos # (Auto) 0.1 10^3/uL (0.0-0.8) 05/15/25 14:04 Baso # (Auto) 0.1 10^3/uL (0.0-0.1) 05/15/25 14:04 Nucleated RBC % (auto) 0 % 05/15/25 14:04 Nucleated RBCs # 0.0 /100WBC 05/15/25 14:04 Sodium 143 mmol/L (136-145) 05/15/25 14:04 Potassium 3.9 mmol/L (3.5-5.1) 05/15/25 14:04 Chloride 105 mmol/L (98-107) 05/15/25 14:04 Carbon Dioxide 26 mmol/L (22-29) 05/15/25 14:04 Anion Gap 15.9 (5-19) 05/15/25 14:04 BUN 23 mg/dL (8-23) 05/15/25 14:04 Creatinine 0.4 mg/dL (0.5-0.9) L 05/15/25 14:04 GFR Calculation Not Reportable 05/15/25 14:04 Glucose 87 mg/dL (65-115) 05/15/25 14:04 Calculated Osmolality 299 mOsm/kg (285-295) H 05/15/25 14:04 Lactic Acid 1.2 mmol/L (0.5-2.2) 05/15/25 14:04 Calcium 9.1 mg/dL (8.5-10.5) 05/15/25 14:04 Total Bilirubin 0.5 mg/dL (0.15-1.2) 05/15/25 14:04 AST 25 U/L (0-32) 05/15/25 14:04 ALT 11 U/L (0-33) 05/15/25 14:04 Alkaline Phosphatase 94 U/L (35-105) 05/15/25 14:04 Troponin T Baseline 33 ng/L (0-10) H 05/15/25 14:04 Troponin T 120 Minute 29.74 ng/L (0-10) H 05/15/25 16:33 Delta Troponin T -3.26 ABS# (0-10) L 05/15/25 16:33 Total Protein 6.1 g/dL (6.6-8.7) L 05/15/25 14:04 Albumin 3.9 g/dL (3.5-5.2) 05/15/25 14:04 Globulin 2.2 g/dL (1.3-4.6) 05/15/25 14:04 Lipase 16 U/L (13-60) 05/15/25 14:04 Urine Color Yellow (Yellow) 05/15/25 14:22 Urine Appearance Cloudy (CLEAR) A 05/15/25 14:22 Urine pH 6.5 (5-7) 05/15/25 14:22 Ur Specific [place] 1.017 (1.005-1.030) 05/15/25 14:22 Urine Protein 1+ (Negative) A 05/15/25 14:22 Urine Glucose (UA) Negative (Normal) 05/15/25 14:22 Urine Ketones Trace (Negative) 05/15/25 14:22 Urine Blood Trace (Negative) A 05/15/25 14:22 Urine Nitrate Positive (Negative) A 05/15/25 14:22 Urine Bilirubin Negative (Negative) 05/15/25 14:22 Urine Urobilinogen 1.0 mg/dL (Negative) 05/15/25 14:22 Ur Leukocyte Esterase 1+ (Negative) A 05/15/25 14:22 Urine RBC 0-4 /hpf (0-2) H 05/15/25 14:22 Urine WBC 5-10 /hpf (0-5) H 05/15/25 14:22 Ur Squamous Epith Cells 0-4 /hpf (0-5) H 05/15/25 14:22 Amorphous Sediment Not Reportable 05/15/25 14:22 Urine Bacteria 4+ /hpf (NONE) H 05/15/25 14:22 Hyaline Casts 0-4 /lpf H 05/15/25 14:22 All radiology interpretation(s) finalized by discharge Discharge Plan Discharge Patient Disposition: Home Clinical Impression: Cystitis, Dementia Condition: Stable Prescriptions: No Action olanzapine 10 mg tablet 10 mg PO BID tramadol 50 mg tablet 50 mg PO TID PRN (Reason: Pain) lorazepam 1 mg tablet 1 mg PO BID divalproex [Depakote] 250 mg tablet,delayed release (DR/EC) 250 mg PO BID Qty: 60 6RF fluoxetine [Prozac] 20 mg capsule 20 mg PO QAM Qty: 30 6RF perphenazine 2 mg tablet 6 mg PO .morning Qty: 90 6RF (DME) Wheelchair See Rx Instructions .Route .MEDSUPPLY Qty: 1 0RF Rx Instructions: As directed calcium carbonate-vitamin D3 250 mg-3.125 mcg (125 unit) tablet 1 tab PO BID acetaminophen 500 mg Tablet 1,000 mg PO Q6H PRN (Reason: pain or temp) levothyroxine 25 mcg tablet 25 mcg PO QAM pantoprazole 40 mg tablet,delayed release (DR/EC) 40 mg PO DAILY simvastatin 20 mg tablet 20 mg PO BEDTIME montelukast 10 mg tablet 10 mg PO BEDTIME fluticasone propion-salmeterol [Advair HFA] 115-21 mcg/actuation HFA aerosol inhaler 2 puff inhalation BID Discharge Orders: Discharge ED (Routine); Ordered 05/15/25 Ordered By: Gregg Ramírez Referrals: KOSTAS Pereira, REMOTE SENSING PROGRAM MANAGER [Primary Care Provider, Family Practice] Discharge Diet: Usual diet Discharge Activity: Resume usual activity Patient Instructions: Altered Mental Status (ED), Opioid Safety, Pain Management, Patient Portal & Oliva Instructions Activity Restrictions/Additional Instructions: Thank you for choosing [facility] for your healthcare needs today. It is very important that you follow up as instructed or that you return to the Emergency Department should you have concerns or if your condition changes or worsens in any way. You were seen in the emergency room with complaints of altered mental status. Laboratory test showed a cystitis remainder of your laboratory tests did not show significant abnormality. You were given a dose of antibiotics you are start to oral antibiotics tomorrow continue your other medications as previously prescribed Print Language: Senegalese Sign Language Coding Level of Care Code ED Information Systems Coordinator for Basilio Toth
--- NOTE | 2025-05-15 15:50 | ECG_ITS ---
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 Measurements Intervals [place] Rate: 89 P: 90 IA: 152 QRS: -10 QRSD: 83 T: 76 QT: 367 QTc: 447 Interpretive Statements SINUS RHYTHM Compared to ECG 05/15/2025 14:21:45 No significant changes Electronically Signed On 05-17-2025 17:13:06 CDT by Jacky Casas M.D. [email or web address]
[2025-05-15] MEDS: cefTRIAXone 1,000 mg SDV 1000 MG IVP (16:00)
--- NOTE | 2025-05-15 16:59 | PC.NURSE ---
report called to Bucky Samuels. pt's nurse taking report:
[2025-05-15 17:08] LABS: Troponin 5 2HR 29.74 ng/L (0-10)
[2025-05-15 17:13] LABS: Troponin 5 2HR Delta -3.26 ABS# (0-10)
== END 2025-05-15 18:16 | disposition home or self-care (01) ==
PROVIDERS: Emergency Provider Family Medicine; PCP Nurse Practitioner Family
DX: N30.90 Cystitis, unspecified without hematuria (principal); F03.90 Unspecified dementia, unspecified severity, without behavioral disturbance, psychotic disturbance, mood disturbance, and anxiety; J44.9 Chronic obstructive pulmonary disease, unspecified; E78.2 Mixed hyperlipidemia; I25.10 Atherosclerotic heart disease of native coronary artery without angina pectoris; I10 Essential (primary) hypertension; Z85.3 Personal history of malignant neoplasm of breast
CPT/HCPCS: 36415; 71045; 80053; 81001; 83605; 83690; 84484; 85025; 87040; 87077; 87086; 87186; 93005; 96374; 99285; J0696